=== PATIENT | female | born 1935 | race Caucasian/White ===

== ENCOUNTER 2016-12-30 02:42 | Emergency (ER) | payer OTHER ==
[2016-12-30] MEDS ORDERED: NS 0.9% 1000 ML* 1,000 ML IV SCH (02:45)
[2016-12-30 04:25] LABS: Hematocrit 42 % (35-47); Mean Corpuscular HGB Conc 33 g/dl (31-36); Mean Corpuscular Hemoglobin 29 pg (27-31); Mean Corpuscular Volume 87 fL (80-97); Mean Platelet Volume 10 um3 (7.4-10.4); Red Blood Count 4.87 10^6/ul (4.0-5.4); Red Cell Distribution Width 14 % (10.5-15); White Blood Count 12.1 10^3/ul (3.5-10.8)
[2016-12-30 05:11] LABS: TSH (Thyroid Stimulating Horm) 1.29 mcIU/mL (0.34-5.60)
[2016-12-30 05:12] LABS: Acetaminophen < 15 mcg/mL; Alcohol < 10 mg/dL (<10); Salicylate < 2.50 mg/dL (<30)
[2016-12-30 05:25] LABS: Anion Gap 8 mmol/L (2-11); CO2 Carbon Dioxide 26 mmol/L (22-32); Chloride 101 mmol/L (101-111); Glucose 110 mg/dL (70-100); Potassium 3.4 mmol/L (3.5-5.0); Sodium 135 mmol/L (133-145)
[2016-12-30 05:26] LABS: Blood Urea Nitrogen 12 mg/dL (6-24); EGFR African American 3.9 (>60); Magnesium 1.8 mg/dL (1.9-2.7); Total Protein 7.1 g/dL (6.4-8.9)
[2016-12-30 05:27] LABS: ALT 11 U/L (7-52); AST 17 U/L (13-39); Albumin 4.1 g/dL (3.2-5.2); Alkaline Phosphatase 65 U/L (34-104); Creatine Kinase 98 U/L (10-223); Lipase 20 U/L (11.0-82.0); Troponin I 0.01 ng/mL (<0.04)
[2016-12-30 05:53] LABS: Ammonia 47 mol/L (16-53); B Type Natriuretic Peptide 59 pg/mL
[2016-12-30 07:37] LABS: BUN/Creatinine Ratio 14.3 (8-20); Calcium 9.3 mg/dL (8.6-10.3); EGFR Non-African American 72.3 (>60)
[2016-12-30 07:39] LABS: Benzodiazepine Urine Screen None Detected (None Detect)
[2016-12-30] MEDS ORDERED: Potassium Chlor TAB* 20 MEQ TAB.ER PO ONE (07:50)
--- NOTE | 2016-12-30 07:51 | RAD ---
HISTORY: Amnesia COMPARISONS: July 20, 2012 TECHNIQUE: Multiple contiguous axial CT scans were obtained of the head without intravenous contrast. FINDINGS: HEMORRHAGE/INFARCT: There is no hemorrhage or acute infarct. MASSES/SHIFT: There is no mass or shift. EXTRA-AXIAL SPACES: There are no extra-axial fluid collections. SULCI AND VENTRICLES: The sulci and ventricles are normal in size and position for the patient's stated age. CEREBRUM: There is hypoattenuation of the periventricular and subcortical white matter. BRAINSTEM: There are no focal parenchymal abnormalities. CEREBELLUM: There are no focal parenchymal abnormalities. VESSELS: The vessels are grossly normal. PARANASAL SINUSES: There is mucosal thickening of ethmoid air cells ORBITS: The orbits are unremarkable. BONES AND SOFT TISSUE: No bone or soft tissue abnormalities are noted. OTHER: None IMPRESSION: NO ACUTE INTRACRANIAL PATHOLOGY.
--- NOTE | 2016-12-30 07:52 | RAD ---
HISTORY: Amnesia COMPARISONS: May 10, 2015 VIEWS: frontal view of the chest FINDINGS: CARDIOMEDIASTINAL SILHOUETTE: The cardiomediastinal silhouette is normal. RODRIGO: The rodrigo are normal. PLEURA: The costophrenic angles are sharp. No pleural abnormalities are noted. LUNG PARENCHYMA: There is linear opacification of left lung base. ABDOMEN: The upper abdomen is clear. There is no subphrenic gas. BONES AND SOFT TISSUES: There is a chronic appearing fracture of the right ninth rib. OTHER: None. IMPRESSION: LINEAR ATELECTASIS OF THE LEFT LUNG BASE
[2016-12-30 07:56] LABS: Urine Bacteria 1+ (Absent); Urine Bilirubin Negative (Negative); Urine Glucose Negative (Negative); Urine Nitrite Positive (Negative)
[2016-12-30] MEDS ORDERED: Ciprofloxacin TAB* 500 MG PO ONE (08:01)
[2016-12-30 08:14] VITALS: BP 132/73
--- NOTE | 2016-12-30 08:27 | ED ---
Alva Morales Alfonso, scribed for Ramon Mejia MD on 12/30/16 at 0810 . Progress - Progress Note Progress Note: Dr. Tejeda signs out for repeat Creatinine, Urinalysis, and BMP. The lab results were within normal limits. She is diagnosed with UTI, therefore will be prescribed ciprofloxacin. She reports no discomfort and is feeling better. Therefore, she will be discharged to follow up with PCP. Re-Evaluation - Re-Evaluation [id number] Re-Evaluation Time: 08:06 Change: Improved Comment: She is feeling better. Discussed discharge plan with pt and her family. Course/Dx - Diagnoses Provider Diagnoses: UTI (urinary tract infection), Hypokalemia, Abdominal pain The documentation as recorded by the Alva sarabia Alfonso accurately reflects the service I personally performed and the decisions made by me, Ramon Mejia MD.
--- NOTE | 2016-12-30 08:36 | RAD ---
INDICATION: Fall. Altered mental status. COMPARISON: No relevant prior exams available on the [facility] PACS for comparison. TECHNIQUE: Multidetector CT images foramen magnum to lung apices without contrast. Multiplanar reformation. REPORT: Mild degenerative anterolisthesis at C3-C4, C4-C5, C5-C6 as well as C7-T1 without facet subluxation at any level. Negative for fracture. Negative for paravertebral hematoma. 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 At C2-C3 uncinate process spurring and facet joint osteoarthritis results in mild LEFT foraminal stenosis. At C3-C4 uncinate process spurring and facet joint osteoarthritis results in mild bilateral foraminal stenosis. At C4-C5 uncinate process spurring and facet joint osteoarthritis results in mild LEFT foraminal stenosis. At C5-C6 dorsal spondylitic ridging disc complex results in mild acquired central canal stenosis and uncinate process spurring and facet joint osteoarthritis results in moderately severe LEFT foraminal stenosis. At C6-C7 uncinate process spurring and facet joint osteoarthritis results in mild bilateral foraminal stenosis. At C7-T1 uncinate process spurring and facet joint osteoarthritis results in mild bilateral foraminal stenosis. IMPRESSION: 1. No evidence for traumatic injury of the cervical spine. 2. 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
--- NOTE | 2016-12-30 08:40 | RAD ---
INDICATION: Fall. Altered mental status. COMPARISON: CT brain of the same date. TECHNIQUE: Multidetector CT base of the skull through mandible without contrast. Multiplanar reformation. REPORT: Motion artifact degrades image quality. Artifact from dental prosthesis. Negative for soft tissue plane hematoma. The orbital and maxillary sinus margins, zygomatic arches, lamina papyracea, base of the maxilla, pterygoid plates, and nasal bones are intact. The senile morphology mandible is intact. Normally aligned temporomandibular joints with advanced degenerative arthropathy. Unremarkable orbital contents. Negative for paranasal sinus fluid levels. Indolent thickening of the inner table of the frontal bone. IMPRESSION: No maxillofacial fracture evident.
--- NOTE | 2017-01-02 08:35 | PN ---
Progress Note - Progress Note Note: Urine culture grew e. coli Patient placed on Cipro. Cipro sensitive to e. coli. nothing further at this time. Sanam Balderrama PA-C
--- NOTE | 2017-01-03 10:58 | ED ---
Garrett Morales Salem, scribed for Jose Tejeda MD on 12/30/16 at 0312 . Altered Mental Status - HPI Summary HPI Summary: Patient is a 81 y/o F who presents to the ED with AMS. Per EMS, pt was taking a walk around 1700 yesterday. She does not recall what happened next, but she was found at [address] the side of [address] road. Per EMS, pt was incontinent to BM ( which is typical for her, per pt). She denies making the decision to rest on the side of the road, but states that she walks a lot typically. Pt denies any pain, but reports abrasion to right knuckles. Per EMS, VSS and blood glucose nml [employer]. Daughter reports that pt had a UTI a couple of months ago. - History Of Current Complaint Stated Complaint: ALTERED MENTAL STATUS Time Seen by Provider: 12/30/16 02:45 Hx Obtained From: Patient, Family/Regulatory Technician, EMS Hx From Patient Unobtainable Due To: Altered Mental Status Last Known Well Date: 12/29/16 Onset/Duration: Still Present Timing: Constant Severity Initially: Moderate Severity Currently: Moderate Character: Confusion Aggravating Factor(s): Nothing Alleviating Factor(s): Nothing Associated Signs And Symptoms: Positive: Negative - Allergies/Home Medications Allergies/Adverse Reactions: Allergies Allergy/AdvReac Type Severity Reaction Status Date / Time No Known Allergies Allergy Verified 12/30/16 03:06 PMH/Surg Hx/FS Hx/Imm Hx Previously Healthy: Yes Infectious Disease History: No Infectious Disease History: Denies: Traveled Outside the [place] in Last 30 Days - Family History Known Family History: Negative: Cardiac Disease, Hypertension Family History: Pt is uncertain due to AMS. - Social History Alcohol Use: None Hx Substance Use: No Substance Use Type: Reports: None Hx Tobacco Use: No Smoking Status (MU): Never Smoked Tobacco Review of Systems Positive: Other - No pain. . Negative: Fever Positive: incontinence - to BM. Neurological: Other - AMS. All Other Systems Reviewed And Are Negative: Yes Physical Exam Triage Information Reviewed: Yes Vital Signs On Initial Exam: Initial Vitals Temp Pulse Resp BP Pulse Ox 97.5 F 98 20 142/80 96 12/30/16 02:45 12/30/16 02:45 12/30/16 02:45 12/30/16 02:45 12/30/16 02:45 Vital Signs Reviewed: Yes Appearance: Positive: Well-Appearing, No Pain Distress Skin: Positive: Warm, Skin Color Reflects Adequate Perfusion, Dry, Other - Abrasions to right knuckles. No actively bleeding. Head/Face: Positive: Normal Head/Face Inspection Eyes: Positive: EOMI, MOR Neck: Positive: Supple, Nontender Respiratory/Lung Sounds: Positive: Clear to Auscultation, Breath Sounds Present Cardiovascular: Positive: RRR Abdomen Description: Positive: Nontender, Soft Bowel Sounds: Positive: Present Musculoskeletal: Positive: Normal, Strength/ROM Intact Neurological: Positive: Normal, Sensory/Motor Intact, Alert, Oriented to Person Place, Time Diagnostics - Vital Signs Vital Signs Temp Pulse Resp BP Pulse Ox 12/30/16 02:54 97.6 F 86 20 133/73 96 12/30/16 02:45 97.5 F 98 20 142/80 96 - Laboratory Lab Results: Lab Results 12/30/16 12/30/16 12/30/16 Range/Units 04:05 04:05 04:05 WBC 12.1 H (3.5-10.8) 10^3/ul RBC 4.87 (4.0-5.4) 10^6/ul Hgb 14.0 (12.0-16.0) g/dl Hct 42 (35-47) % MCV 87 (80-97) fL MCH 29 (27-31) pg MCHC 33 (31-36) g/dl RDW 14 (10.5-15) % Plt Count 217 (150-450) 10^3/ul MPV 10 (7.4-10.4) um3 Neut % (Auto) 84.8 H (38-83) % Lymph % (Auto) 9.2 L (25-47) % [place] % (Auto) 5.1 (1-9) % Eos % (Auto) 0.3 (0-6) % Baso % (Auto) 0.6 (0-2) % Absolute Neuts (auto) 10.3 H (1.5-7.7) 10^3/ul Absolute Lymphs (auto) 1.1 (1.0-4.8) 10^3/ul Absolute Monos (auto) 0.6 (0-0.8) 10^3/ul Absolute Eos (auto) 0 (0-0.6) 10^3/ul Absolute Basos (auto) 0.1 (0-0.2) 10^3/ul Absolute Nucleated RBC 0 10^3/ul Nucleated RBC % 0 INR (Anticoag Therapy) 0.98 (0.89-1.11) APTT 32.0 (26.0-36.3) seconds Sodium 135 (133-145) mmol/L Potassium 3.4 L (3.5-5.0) mmol/L Chloride 101 (101-111) mmol/L Carbon Dioxide 26 (22-32) mmol/L Anion Gap 8 (2-11) mmol/L BUN 12 (6-24) mg/dL Creatinine 12.00 H (0.51-0.95) mg/dL Est GFR ( Amer) 3.9 (>60) Est GFR (Non-Af Amer) 3.0 (>60) BUN/Creatinine Ratio 1.0 L (8-20) Glucose 110 H (70-100) mg/dL Lactic Acid (0.5-2.0) mmol/L Calcium 9.0 (8.6-10.3) mg/dL Magnesium 1.8 L (1.9-2.7) mg/dL Total Bilirubin 1.70 H (0.2-1.0) mg/dL AST 17 (13-39) U/L ALT 11 (7-52) U/L Alkaline Phosphatase 65 (34-104) U/L Ammonia (16-53) mol/L Total Creatine Kinase 98 (10-223) U/L CK-MB (CK-2) 2.1 (0.6-6.3) ng/mL Troponin I 0.01 (<0.04) ng/mL C-Reactive Protein 8.40 H (< 5.00) mg/L B-Natriuretic Peptide ( - 100) pg/mL Total Protein 7.1 (6.4-8.9) g/dL Albumin 4.1 (3.2-5.2) g/dL Globulin 3.0 (2-4) g/dL Albumin/Globulin Ratio 1.4 (1-3) Lipase 20 (11.0-82.0) U/L TSH 1.29 (0.34-5.60) mcIU/mL Urine Color Urine Appearance Urine pH (5-9) Ur Specific [place] (1.010-1.030) Urine Protein (Negative) Urine Ketones (Negative) Urine Blood (Negative) Urine Nitrate (Negative) Urine Bilirubin (Negative) Urine Urobilinogen (Negative) Ur Leukocyte Esterase (Negative) Urine WBC (Auto) (Absent) Urine RBC (Auto) (Absent) Ur Squamous Epith Cells (Absent) Urine Bacteria (Absent) Urine Glucose (Negative) Salicylates < 2.50 (<30) mg/dL Urine Opiates Screen (None Detect) Acetaminophen < 15 mcg/mL Ur Barbiturates Screen (None Detect) Ur Phencyclidine Scrn (None Detect) Ur Amphetamines Screen (None Detect) U Benzodiazepines Scrn (None Detect) Urine Cocaine Screen (None Detect) U Cannabinoids Screen (None Detect) Serum Alcohol < 10 (<10) mg/dL 12/30/16 12/30/16 12/30/16 Range/Units 04:05 04:05 06:40 WBC (3.5-10.8) 10^3/ul RBC (4.0-5.4) 10^6/ul Hgb (12.0-16.0) g/dl Hct (35-47) % MCV (80-97) fL MCH (27-31) pg MCHC (31-36) g/dl RDW (10.5-15) % Plt Count (150-450) 10^3/ul MPV (7.4-10.4) um3 Neut % (Auto) (38-83) % Lymph % (Auto) (25-47) % [place] % (Auto) (1-9) % Eos % (Auto) (0-6) % Baso % (Auto) (0-2) % Absolute Neuts (auto) (1.5-7.7) 10^3/ul Absolute Lymphs (auto) (1.0-4.8) 10^3/ul Absolute Monos (auto) (0-0.8) 10^3/ul Absolute Eos (auto) (0-0.6) 10^3/ul Absolute Basos (auto) (0-0.2) 10^3/ul Absolute Nucleated RBC 10^3/ul Nucleated RBC % INR (Anticoag Therapy) (0.89-1.11) APTT (26.0-36.3) seconds Sodium (133-145) mmol/L Potassium (3.5-5.0) mmol/L Chloride (101-111) mmol/L Carbon Dioxide (22-32) mmol/L Anion Gap (2-11) mmol/L BUN (6-24) mg/dL Creatinine (0.51-0.95) mg/dL Est GFR ( Amer) (>60) Est GFR (Non-Af Amer) (>60) BUN/Creatinine Ratio (8-20) Glucose (70-100) mg/dL Lactic Acid 1.1 (0.5-2.0) mmol/L Calcium (8.6-10.3) mg/dL Magnesium (1.9-2.7) mg/dL Total Bilirubin (0.2-1.0) mg/dL AST (13-39) U/L ALT (7-52) U/L Alkaline Phosphatase (34-104) U/L Ammonia 47 (16-53) mol/L Total Creatine Kinase (10-223) U/L CK-MB (CK-2) (0.6-6.3) ng/mL Troponin I (<0.04) ng/mL C-Reactive Protein (< 5.00) mg/L B-Natriuretic Peptide 59 ( - 100) pg/mL Total Protein (6.4-8.9) g/dL Albumin (3.2-5.2) g/dL Globulin (2-4) g/dL Albumin/Globulin Ratio (1-3) Lipase (11.0-82.0) U/L TSH (0.34-5.60) mcIU/mL Urine Color Yellow Urine Appearance Cloudy Urine pH 6.0 (5-9) Ur Specific [place] 1.004 L (1.010-1.030) Urine Protein Negative (Negative) Urine Ketones Negative (Negative) Urine Blood 2+ H (Negative) Urine Nitrate Positive H (Negative) Urine Bilirubin Negative (Negative) Urine Urobilinogen Negative (Negative) Ur Leukocyte Esterase 3+ H (Negative) Urine WBC (Auto) 3+(>20/hpf) H (Absent) Urine RBC (Auto) 1+(3-5/hpf) H (Absent) Ur Squamous Epith Cells Present H (Absent) Urine Bacteria 1+ H (Absent) Urine Glucose Negative (Negative) Salicylates (<30) mg/dL Urine Opiates Screen (None Detect) Acetaminophen mcg/mL Ur Barbiturates Screen (None Detect) Ur Phencyclidine Scrn (None Detect) Ur Amphetamines Screen (None Detect) U Benzodiazepines Scrn (None Detect) Urine Cocaine Screen (None Detect) U Cannabinoids Screen (None Detect) Serum Alcohol (<10) mg/dL 12/30/16 12/30/16 Range/Units 06:40 06:50 WBC (3.5-10.8) 10^3/ul RBC (4.0-5.4) 10^6/ul Hgb (12.0-16.0) g/dl Hct (35-47) % MCV (80-97) fL MCH (27-31) pg MCHC (31-36) g/dl RDW (10.5-15) % Plt Count (150-450) 10^3/ul MPV (7.4-10.4) um3 Neut % (Auto) (38-83) % Lymph % (Auto) (25-47) % [place] % (Auto) (1-9) % Eos % (Auto) (0-6) % Baso % (Auto) (0-2) % Absolute Neuts (auto) (1.5-7.7) 10^3/ul Absolute Lymphs (auto) (1.0-4.8) 10^3/ul Absolute Monos (auto) (0-0.8) 10^3/ul Absolute Eos (auto) (0-0.6) 10^3/ul Absolute Basos (auto) (0-0.2) 10^3/ul Absolute Nucleated RBC 10^3/ul Nucleated RBC % INR (Anticoag Therapy) (0.89-1.11) APTT (26.0-36.3) seconds Sodium 136 (133-145) mmol/L Potassium 3.0 L (3.5-5.0) mmol/L Chloride 102 (101-111) mmol/L Carbon Dioxide 27 (22-32) mmol/L Anion Gap 7 (2-11) mmol/L BUN 11 (6-24) mg/dL Creatinine 0.77 (0.51-0.95) mg/dL Est GFR ( Amer) 93.0 (>60) Est GFR (Non-Af Amer) 72.3 (>60) BUN/Creatinine Ratio 14.3 (8-20) Glucose 100 (70-100) mg/dL Lactic Acid (0.5-2.0) mmol/L Calcium 9.3 (8.6-10.3) mg/dL Magnesium (1.9-2.7) mg/dL Total Bilirubin (0.2-1.0) mg/dL AST (13-39) U/L ALT (7-52) U/L Alkaline Phosphatase (34-104) U/L Ammonia (16-53) mol/L Total Creatine Kinase (10-223) U/L CK-MB (CK-2) (0.6-6.3) ng/mL Troponin I (<0.04) ng/mL C-Reactive Protein (< 5.00) mg/L B-Natriuretic Peptide ( - 100) pg/mL Total Protein (6.4-8.9) g/dL Albumin (3.2-5.2) g/dL Globulin (2-4) g/dL Albumin/Globulin Ratio (1-3) Lipase (11.0-82.0) U/L TSH (0.34-5.60) mcIU/mL Urine Color Urine Appearance Urine pH (5-9) Ur Specific [place] (1.010-1.030) Urine Protein (Negative) Urine Ketones (Negative) Urine Blood (Negative) Urine Nitrate (Negative) Urine Bilirubin (Negative) Urine Urobilinogen (Negative) Ur Leukocyte Esterase (Negative) Urine WBC (Auto) (Absent) Urine RBC (Auto) (Absent) Ur Squamous Epith Cells (Absent) Urine Bacteria (Absent) Urine Glucose (Negative) Salicylates (<30) mg/dL Urine Opiates Screen None detected (None Detect) Acetaminophen mcg/mL Ur Barbiturates Screen None detected (None Detect) Ur Phencyclidine Scrn None detected (None Detect) Ur Amphetamines Screen None detected (None Detect) U Benzodiazepines Scrn None detected (None Detect) Urine Cocaine Screen None detected (None Detect) U Cannabinoids Screen None detected (None Detect) Serum Alcohol (<10) mg/dL Result Diagrams: 12/30/16 04:05 12/30/16 06:50 Lab Statement: Any lab studies that have been ordered have been reviewed, and results considered in the medical decision making process. - Radiology CXR Radiology Interpretation Completed By: ED Physician - Normal. - CT BRAIN CT Interpretation Completed By: Radiologist - IMPRESSION: No acute intracranial process. CERVICAL SPINE CT Interpretation Completed By: Radiologist - IMPRESSION: No acute cervical spine injury. MAXILLOFACIAL CT Interpretation Completed By: Radiologist - Findings: No acute facial fractures or orbital injury. Degenerative changes of the tempormanubrial joint. Mild chronic bilateral ethmoid and maxillary sinus disease. Hyperostosis frontalis Re-Evaluation - Re-Evaluation First Eval Re-Evaluation Time: 05:11 Comment: Informed pt and family of imaging results. Second Eval Re-Evaluation Time: 06:29 Comment: Updated family and pt. Discussed new imaging results. Altered Mental Statu Course/Dx - Course Course Of Treatment: DISPOSITION PENDING AT SHIFT CHANGE, STABLE. NO CRITICAL CARE TIME. - Diagnoses Discharge Diagnoses: UTI (urinary tract infection), Hypokalemia, Abdominal pain Discharge - Discharge Plan Condition: Stable Disposition: HOME Prescriptions: Ciprofloxacin TAB* [Cipro 500 MG TAB*] 500 mg PO BID #6 tab Patient Education Materials: Ciprofloxacin (By mouth), Urinary Tract Infection in Women (ED), Hypokalemia (ED) Referrals: Alethea Burgos MD [Primary Care Provider] - 2 Days The documentation as recorded by the Garrett sarabia Salem accurately reflects the service I personally performed and the decisions made by me, Jose Tejeda MD.
== END 2016-12-30 08:53 | disposition home or self-care (01) ==
LOC: ED 02:42
DX: N39.0 Urinary tract infection, site not specified (principal); R10.9 Unspecified abdominal pain; E87.6 Hypokalemia
CPT/HCPCS: 36415; 70450; 70486; 71010; 72125; 80048; 80053; 80307; 80320; 80329; 81003; 81015; 82140; 82550; 82553; 83605; 83690; 83735; 83880; 84443; 84484; 85025; 85610; 85730; 86140; 87077; 87086; 87186; 99283; A9270-GY; G0480

== ENCOUNTER 2017-09-06 09:41 | Inpatient (IN) | payer MEDICARE ==
[2017-09-06] MEDS ORDERED: NS 0.9% 1000 ML* 1,000 ML IV ONE (09:49)
[2017-09-06 10:30] LABS: ABS Basophils 0 10^3/ul (0-0.2); ABS Eosinophils 0.1 10^3/ul (0-0.6); ABS Lymphocytes 1.7 10^3/ul (1.0-4.8); ABS Monocytes 0.5 10^3/ul (0-0.8); ABS Neutrophils 6.8 10^3/ul (1.5-7.7); ABS Nucleated RBC 0 10^3/ul; Eosinophil % 1.2 % (0-6); Hematocrit 40 % (35-47); Hemoglobin 13.3 g/dl (12.0-16.0); Lymphocyte % 18.8 % (25-47); Mean Corpuscular HGB Conc 33 g/dl (31-36); Mean Corpuscular Hemoglobin 29 pg (27-31); Mean Corpuscular Volume 88 fL (80-97); Mean Platelet Volume 9 um3 (7.4-10.4); Nucleated Red Blood Cells % 0; Platelet Count 322 10^3/ul (150-450); Red Blood Count 4.57 10^6/ul (4.0-5.4); Red Cell Distribution Width 14 % (10.5-15); White Blood Count 9.2 10^3/ul (3.5-10.8)
[2017-09-06 10:44] LABS: INR 1.04 (0.77-1.02)
--- NOTE | 2017-09-06 10:56 | RAD ---
INDICATION: Altered mental status. COMPARISON: Comparison is made with a prior CT of the brain from December 30, 2016. TECHNIQUE: Contiguous axial sections of the brain were obtained from the skull base to the vertex without contrast. FINDINGS: The ventricles, cisterns and sulci are enlarged consistent with diffuse atrophy. There are multiple focal areas of decreased density in the subcortical and periventricular white matter suggestive of moderate chronic small vessel ischemic changes. No other focal abnormality or mass effect is seen. There is no evidence for hemorrhage. No significant focal osseous abnormality is seen. The visualized portion of the paranasal sinuses and mastoid air cells appear clear. IMPRESSION: NO EVIDENCE FOR ACUTE INTRACRANIAL ABNORMALITY.
--- NOTE | 2017-09-06 11:02 | RAD ---
Indication: Altered mental status. Hypertensive, diaphoretic. Seizure. Comparison: December 30, 2016 Technique: Upright AP 1030 hours Report: Elevated lung volumes. Negative for alveolar consolidation, focal pulmonary lesion, pleural effusion, pneumothorax. The heart, pulmonary vasculature, and mediastinal contours are unremarkable. Healed fracture of the RIGHT ninth rib posterolaterally. No acute fracture evident. IMPRESSION: 1. Stigmata of probable chronic obstructive pulmonary disease. 2. No evidence for acute intrathoracic disease evident.
[2017-09-06] MEDS ORDERED: Aspirin Low Dose CHEW TAB* 81 MG PO ONE (13:34)
[2017-09-06] MEDS ORDERED: Heparin for STEMI(*) 5,000 UNITS/ML 1 ML VIAL IV ONE (13:34)
[2017-09-06] MEDS ORDERED: Atorvastatin* 80 MG TAB PO ONE (14:36)
[2017-09-06] MEDS ORDERED: Acetaminophen TAB* 325 MG PO PRN (14:39)
[2017-09-06] MEDS ORDERED: Loperamide CAP* 2 MG PO PRN (14:40)
[2017-09-06] MEDS ORDERED: Heparin DRIP 25,000 UNITS(*) 25,000 UNITS/500 ML BAG IVPB SCH (14:45)
[2017-09-06] MEDS ORDERED: NS 0.9% 1000 ML* 1,000 ML IV SCH (14:45)
[2017-09-06] MEDS ORDERED: Heparin VIAL(*) 5000 UNITS/ML VIAL (FIVE THOUSAND) IV SCH (15:00)
[2017-09-06 15:07] LABS: Urine Appearance Cloudy; Urine Blood 2+ (Negative); Urine Color Yellow; Urine Ketones Negative (Negative); Urine Protein Negative (Negative); Urine Specific Gravity 1.006 (1.010-1.030); Urine Urobilinogen Negative (Negative)
[2017-09-06] MEDS ORDERED: QUEtiapine TAB* 25 MG PO SCH (18:00)
[2017-09-06] MEDS ORDERED: LORazepam TAB(*) 0.5 MG PO SCH (18:00)
--- NOTE | 2017-09-06 19:38 | HP ---
CC: Dr. Romero * HISTORY AND PHYSICAL: DATE OF ADMISSION: 09/06/17 PRIMARY CARE PROVIDER: Dr. Romero. HEALTHCARE PROXY: and Madhav Gonzales. CODE STATUS: DNR, confirmed with the patient's healthcare proxy, [facility] in chart. CHIEF COMPLAINT: Cold and clammy. HISTORY OF PRESENT ILLNESS: This 82-year-old female with past medical history of dementia, resident of [place], who had not been feeling well approximately 3 days prior to presentation. She is visited by her daughter daily, who noted on Tuesday she did not want to get up and get out of bed, had decreased p.o. intake. The following day Tuesday, 2 days prior to presentation, she was feeling much better. However, the day prior to presentation, she was again increasingly fatigued, difficult to arouse and then again ate very little. Today while at [facility], according to their notes, on transfer to [facility], she was not feeling right, felt fatigued, and felt cold and clammy to touch without fever and EMS was activated. However, in talking with the patient's family, they indicated that they thought she had seizure-like activity. This is not reflected in her transfer note nor in EMS' note. I attempted to reach , the nurse at [facility] at [phone] to no avail at this time. The patient has dementia, and while she is communicative, her short and long-term memory are impaired. She does not recall any chest pain; however, I do not lend much credence to her own self-evaluation. She has not been noted to have any cough or fever, shortness of breath or chest pain, diarrhea, urinary symptoms per her daughter. EMS noted that the patient's heart rate was 50 upon arrival. When seen in the emergency room, she was thought to be acting herself; however, the daughter thought she looked "pale." PAST MEDICAL HISTORY: Urinary tract infection, dementia, hysterectomy in 1974. MEDICATIONS: Include: 1. Acetaminophen 650 mg every 4 hours as needed for pain. 2. Seroquel 12.5 mg daily as needed in addition to Seroquel 12.5 mg in the morning and 25 mg of Seroquel at night. 3. Loperamide 2 to 4 mg daily as needed for diarrhea. 4. Lorazepam 0.5 mg in the evening. 5. Probiotic 1 cap daily. 6. Lexapro 10 mg daily. 7. Donepezil 10 mg at bedtime. 8. Cranberry fruit extract 850 mg daily. 9. Vitamin D 50,000 units monthly. 10. Multivitamin 1 tab daily. ALLERGIES: No known drug allergies. FAMILY HISTORY: Negative for CAD. SOCIAL HISTORY: Lives in [place]. No tobacco, alcohol, or illicits. She was exposed to significant second-hand smoke by her . REVIEW OF SYSTEMS: As per HPI, otherwise all other systems negative. PHYSICAL EXAMINATION GENERAL: Appears stated age, interactive, pleasant, no apparent distress. VITAL SIGNS: Vitals in the emergency room; blood pressure 129/78, heart rate ranging from 57 to 68, respiratory rate is 15, 95% on room air, T-max 97.8. HEENT: Oropharynx is clear. She has moist mucous membranes. Sclerae anicteric. NECK: She has JVD to approximately the angle of her jaw. No cervical or supraclavicular lymphadenopathy. LUNGS: Clear to auscultation. HEART: She has regular rate and rhythm. No murmurs, rubs, or gallops. ABDOMEN: Soft, nontender, nondistended. EXTREMITIES: Warm and well perfused. No clubbing, cyanosis, or edema. NEUROLOGIC: She is alert and oriented to herself and hospital. She did have difficulty giving her last name, wants to use her maiden name, had difficulty remembering her name. Cranial nerves II through XII are intact. 5/5 strength throughout. 2+ peripheral pulses. Could not remember the year, who the president was. She is able to follow simple 2-step commands. She has no apparent anxiety, agitation, or depression. DIAGNOSTIC STUDIES/LAB DATA: Labs reviewed notable for white blood cell count 9.2, hemoglobin 13.3, platelets 322,000. Troponin I is 2.38, increased from 0.00 on presentation. Data reviewed. EKG: Normal sinus rhythm, ventricular rate of 58, normal limit axis, normal limit intervals, biphasic T waves in V2 with T-wave inversions in V3, V4, V5. No prior to compare to. Chest x-ray, impression: Stigmata of probable chronic obstructive pulmonary disease. No evidence for acute intrathoracic disease. ASSESSMENT AND PLAN: This is an 82-year-old female, presenting to the hospital potentially with loss of consciousness, but definitely with several days of feeling fatigued, decreased appetite, and then an episode of feeling cold and clammy, found with elevated troponin with nonspecific EKG findings concerning for myocardial ischemia. 1. Elevated troponin. Continue to trend troponins and repeat EKGs. The patient received heparin bolus in the emergency room. We will continue the heparin drip at this time. She received the full-dose aspirin. We will continue aspirin low dose tomorrow. Check lipids. Metoprolol with hold parameters for both blood pressure and heart rate. High dose atorvastatin this evening. Discussed at length goals of care with family. At this point, they are undecided whether they would want to pursue cardiac catheterization and will be guided by both the significance of the troponin elevation, her symptomatology and transthoracic echocardiogram findings. I have ordered TTE at this time. Results are pending. 2. Syncope with seizure like activity. Transthoracic echocardiogram is indicated, but with continued telemetry monitoring. I will hydrate the patient with normal saline 75 cc per hour for 1 L additionally in the setting of recent fatigue and illness. Check for influenza. 3. Bradycardia on presentation. Unclear association with loss of consciousness and/or acute myocardial infarction. I have ordered metoprolol knowingly in the setting of acute coronary syndrome with hold parameters. Continue to monitor on telemetry. 4. DVT prophylaxis with heparin drip. 5. Dementia. Continue Aricept, Ativan and Seroquel per home dosing. 6. FEN. N.p.o. after midnight should she undergo stress testing. [id number]/[facility] #: [id number] ANGELA
[2017-09-06] MEDS: Metoprolol Tartrate TAB* 25 MG PO SCH (20:34)
[2017-09-06] MEDS ORDERED: Donepezil TAB* 5 MG PO SCH (21:00)
[2017-09-06] MEDS ORDERED: Haloperidol INJ IV/IM* 5 MG/ML AMP IM ONE ×2 (21:01→21:16)
[2017-09-06] MEDS ORDERED: Haloperidol INJ IV/IM* 5 MG/ML AMP ONE (21:16)
[2017-09-07 06:14] LABS: ABS Basophils 0.1 10^3/ul (0-0.2); ABS Eosinophils 0.2 10^3/ul (0-0.6); ABS Lymphocytes 2.5 10^3/ul (1.0-4.8); ABS Monocytes 0.5 10^3/ul (0-0.8); ABS Neutrophils 4.1 10^3/ul (1.5-7.7); ABS Nucleated RBC 0 10^3/ul; Eosinophil % 2.2 % (0-6); Hematocrit 37 % (35-47); Hemoglobin 12.5 g/dl (12.0-16.0); Lymphocyte % 34.3 % (25-47); Mean Corpuscular HGB Conc 34 g/dl (31-36); Mean Corpuscular Hemoglobin 30 pg (27-31); Mean Corpuscular Volume 87 fL (80-97); Mean Platelet Volume 10 um3 (7.4-10.4); Nucleated Red Blood Cells % 0.1; Platelet Count 307 10^3/ul (150-450); Red Blood Count 4.22 10^6/ul (4.0-5.4); Red Cell Distribution Width 14 % (10.5-15); White Blood Count 7.3 10^3/ul (3.5-10.8)
[2017-09-07 06:45] LABS: EGFR Non-African American 86.2 (>60)
[2017-09-07] MEDS: Metoprolol Tartrate TAB* 25 MG PO SCH (08:47)
[2017-09-07] MEDS ORDERED: Multivitamins/Minerals TAB PO SCH (09:00)
[2017-09-07] MEDS ORDERED: QUEtiapine TAB* 25 MG PO SCH (09:00)
[2017-09-07] MEDS ORDERED: Aspirin EC Low Dose* 81 MG TAB.EC PO SCH (09:00)
[2017-09-07] MEDS ORDERED: Citalopram TAB* 20 MG PO SCH (09:00)
[2017-09-07 14:44] VITALS: BP 123/68
--- NOTE | 2017-09-07 18:19 | ED ---
[facility] Angela, scribed for Ramon Mejia MD on 09/06/17 at 0950 . Neurological HPI - HPI Summary HPI Summary: This pt is a 82 y/o female presenting to [facility] via EMS from [facility] for a seizure like activity. EMS reports the pt was in the library when pt had a tremor like activity. EMS was called for hypotension and pt looking pale. EMS states that for the past 30 minutes pt has had retching and altered mental status. Pt is unable to remember this seizure like episode. Pt denies any pain, headache, dizziness, SOB, chest pain, fever. Per EMS pt is usually very lucid and is talkative. - History of Current Complaint Chief Complaint: EDSeizure Stated Complaint: HYPOTENSION Hx Obtained From: Patient, EMS Onset/Duration: Started hours ago, Resolved Timing: Sudden Onset Onset Severity: Moderate Current Severity: None Number of Seizures: 1 Pain Intensity: 0 Pain Scale Used: 0-10 Numeric Character: Confusion Syncope Context: Witnessed Aggravating: Nothing Alleviating: Nothing Associated Signs and Symptoms: Positive: Confusion - Allergy/Home Medications Allergies/Adverse Reactions: Allergies Allergy/AdvReac Type Severity Reaction Status Date / Time No Known Allergies Allergy Verified 12/30/16 03:06 Home Medications: Home Medications Acetaminophen TAB* [Tylenol TAB*] 650 mg PO Q4H PRN 09/06/17 [History Confirmed 09/06/17] Cholecalciferol TAB* [Vitamin D TAB*] 50,000 unit PO MONTHLY 09/06/17 [History Confirmed 09/06/17] Cranberry Fruit Extract [Cranberry] 850 mg PO DAILY 09/06/17 [History Confirmed 09/06/17] Donepezil TAB* [Aricept 5 MG TAB*] 10 mg PO BEDTIME 09/06/17 [History Confirmed 09/06/17] Escitalopram (NF) [Lexapro 10 mg (NF)] 10 mg PO DAILY 09/06/17 [History Confirmed 09/06/17] L.acidoph,Paracasei, B.lactis [Probiotic] 1 cap PO DAILY 09/06/17 [History Confirmed 09/06/17] LORazepam TAB(*) [Ativan 0.5 MG TAB (*)] 0.5 mg PO QPM 09/06/17 [History Confirmed 09/06/17] Loperamide CAP* [Imodium CAP*] 2 - 4 mg PO DAILY PRN 09/06/17 [History Confirmed 09/06/17] Multivitamins/Minerals TAB* [Theragran/minerals TAB*] 1 tab PO DAILY 09/06/17 [ History Confirmed 09/06/17] QUEtiapine TAB* [Seroquel TAB*] 12.5 mg PO DAILY PRN MDD 50mg total dose [History Confirmed 09/06/17] QUEtiapine TAB* [Seroquel TAB*] 12.5 mg PO QAM 09/06/17 [History Confirmed 09/06] QUEtiapine TAB* [Seroquel TAB*] 25 mg PO QPM 09/06/17 [History Confirmed ] PMH/Surg Hx/FS Hx/Imm Hx - Family History Known Family History: Negative: Cardiac Disease, Hypertension Family History: Pt is uncertain due to AMS. - Social History Alcohol Use: None Hx Substance Use: No Substance Use Type: Reports: None Hx Tobacco Use: No Smoking Status (MU): Never Smoked Tobacco Review of Systems Negative: Fever, Chills Negative: Chest Pain Negative: Shortness Of Breath Neurological: Other - POS: seizure like episode. NEG: dizziness Positive: Weakness. Negative: Headache All Other Systems Reviewed And Are Negative: Yes Physical Exam - Summary Physical Exam Summary: VITAL SIGNS: Reviewed. GENERAL: Patient is a pale and diaphoretic female who is weak. Patient is not in any acute respiratory distress. HEAD AND FACE: No signs of trauma. No ecchymosis, hematomas or skull depressions. No sinus tenderness. EYES: PERRLA, EOMI x 2, No injected conjunctiva, no nystagmus. EARS: Hearing grossly intact. Ear canals and tympanic membranes are within normal limits. MOUTH: Oropharynx within normal limits. NECK: Supple, trachea is midline, no adenopathy, no JVD, no carotid bruit, no c- spine tenderness, neck with full ROM. CHEST: Symmetric, no tenderness at palpation LUNGS: Clear to auscultation bilaterally. No wheezing or crackles. CVS: Bradycardic with regular rhythm, S1 and S2 present, no murmurs or gallops appreciated. ABDOMEN: Soft, non-tender. No signs of distention. No rebound no guarding, and no masses palpated. Bowel sounds are normal. EXTREMITIES: FROM in all major joints, no edema, no cyanosis or clubbing. NEURO: Alert and oriented x 3. No acute neurological deficits. Speech is normal and follows commands. SKIN: Pale and diaphoretic. GCS: 15 Triage Information Reviewed: Yes Vital Signs On Initial Exam: Initial Vitals Temp Pulse Resp BP Pulse Ox 96.5 F 57 18 121/59 96 09/06/17 09:43 09/06/17 09:43 09/06/17 09:43 09/06/17 09:43 09/06/17 09:43 Vital Signs Reviewed: Yes - [place] Coma Scale Best Eye Response: 4 - Spontaneous Best Motor Response: 6 - Obeys Commands Best Verbal Response: 5 - Oriented Coma Scale Total: 15 Diagnostics - Vital Signs Vital Signs Temp Pulse Resp BP Pulse Ox 09/06/17 14:30 67 16 144/78 97 09/06/17 14:00 16 09/06/17 13:47 68 21 129/78 95 09/06/17 13:00 59 15 95 09/06/17 12:10 58 97 09/06/17 11:22 98 09/06/17 11:00 52 19 97 09/06/17 10:28 97.8 F 59 17 121/61 96 09/06/17 10:00 61 15 121/61 95 09/06/17 09:48 59 95 09/06/17 09:47 121/59 09/06/17 09:43 96.5 F 57 18 121/59 96 - Laboratory Lab Results: Lab Results 09/06/17 09/06/17 09/06/17 Range/Units 10:16 10:16 10:16 WBC 9.2 (3.5-10.8) 10^3/ul RBC 4.57 (4.0-5.4) 10^6/ul Hgb 13.3 (12.0-16.0) g/dl Hct 40 (35-47) % MCV 88 (80-97) fL MCH 29 (27-31) pg MCHC 33 (31-36) g/dl RDW 14 (10.5-15) % Plt Count 322 (150-450) 10^3/ul MPV 9 (7.4-10.4) um3 Neut % (Auto) 73.8 (38-83) % Lymph % (Auto) 18.8 L (25-47) % [place] % (Auto) 5.7 (1-9) % Eos % (Auto) 1.2 (0-6) % Baso % (Auto) 0.5 (0-2) % Absolute Neuts (auto) 6.8 (1.5-7.7) 10^3/ul Absolute Lymphs (auto) 1.7 (1.0-4.8) 10^3/ul Absolute Monos (auto) 0.5 (0-0.8) 10^3/ul Absolute Eos (auto) 0.1 (0-0.6) 10^3/ul Absolute Basos (auto) 0 (0-0.2) 10^3/ul Absolute Nucleated RBC 0 10^3/ul Nucleated RBC % 0 INR (Anticoag Therapy) 1.04 H (0.77-1.02) APTT 26.5 (26.0-36.3) seconds Sodium 134 (133-145) mmol/L Potassium 4.0 (3.5-5.0) mmol/L Chloride 100 L (101-111) mmol/L Carbon Dioxide 28 (22-32) mmol/L Anion Gap 6 (2-11) mmol/L BUN 11 (6-24) mg/dL Creatinine 0.79 (0.51-0.95) mg/dL Est GFR ( Amer) 90.1 (>60) Est GFR (Non-Af Amer) 70.0 (>60) BUN/Creatinine Ratio 13.9 (8-20) Glucose 146 H (70-100) mg/dL Lactic Acid (0.5-2.0) mmol/L Calcium 9.3 (8.6-10.3) mg/dL Magnesium 2.0 (1.9-2.7) mg/dL Total Bilirubin 0.80 (0.2-1.0) mg/dL AST 14 (13-39) U/L ALT 8 (7-52) U/L Alkaline Phosphatase 60 (34-104) U/L Troponin I 0.00 (<0.04) ng/mL Total Protein 6.7 (6.4-8.9) g/dL Albumin 3.3 (3.2-5.2) g/dL Globulin 3.4 (2-4) g/dL Albumin/Globulin Ratio 1.0 (1-3) 09/06/17 09/06/17 Range/Units 10:16 12:55 WBC (3.5-10.8) 10^3/ul RBC (4.0-5.4) 10^6/ul Hgb (12.0-16.0) g/dl Hct (35-47) % MCV (80-97) fL MCH (27-31) pg MCHC (31-36) g/dl RDW (10.5-15) % Plt Count (150-450) 10^3/ul MPV (7.4-10.4) um3 Neut % (Auto) (38-83) % Lymph % (Auto) (25-47) % [place] % (Auto) (1-9) % Eos % (Auto) (0-6) % Baso % (Auto) (0-2) % Absolute Neuts (auto) (1.5-7.7) 10^3/ul Absolute Lymphs (auto) (1.0-4.8) 10^3/ul Absolute Monos (auto) (0-0.8) 10^3/ul Absolute Eos (auto) (0-0.6) 10^3/ul Absolute Basos (auto) (0-0.2) 10^3/ul Absolute Nucleated RBC 10^3/ul Nucleated RBC % INR (Anticoag Therapy) (0.77-1.02) APTT (26.0-36.3) seconds Sodium (133-145) mmol/L Potassium (3.5-5.0) mmol/L Chloride (101-111) mmol/L Carbon Dioxide (22-32) mmol/L Anion Gap (2-11) mmol/L BUN (6-24) mg/dL Creatinine (0.51-0.95) mg/dL Est GFR ( Amer) (>60) Est GFR (Non-Af Amer) (>60) BUN/Creatinine Ratio (8-20) Glucose (70-100) mg/dL Lactic Acid 2.0 (0.5-2.0) mmol/L Calcium (8.6-10.3) mg/dL Magnesium (1.9-2.7) mg/dL Total Bilirubin (0.2-1.0) mg/dL AST (13-39) U/L ALT (7-52) U/L Alkaline Phosphatase (34-104) U/L Troponin I 2.38 H* (<0.04) ng/mL Total Protein (6.4-8.9) g/dL Albumin (3.2-5.2) g/dL Globulin (2-4) g/dL Albumin/Globulin Ratio (1-3) Result Diagrams: 09/07/17 05:22 09/07/17 05:22 Lab Statement: Any lab studies that have been ordered have been reviewed, and results considered in the medical decision making process. - Radiology Chest XR Xray Interpretation: Positive (See Comments) - IMPRESSION: 1. Stigmata of probable chronic obstructive pulmonary disease. 2. No evidence for acute intrathoracic disease evident. Dr. Mejia has reviewed this radiology report. Radiology Interpretation Completed By: Radiologist - CT Brain CT CT Interpretation: No Acute Changes - IMPRESSION: No evidence for acute intracranial abnormality. Dr. Mejia has reviewed this radiology report. CT Interpretation Completed By: Radiologist - EKG 09:57 Cardiac Rate: Bradycardia EKG Rhythm: Sinus Bradycardia - at 58 bpm EKG Interpretation: T wave inversion in V2-V6. Course/Dx - Course Assessment/Plan: This pt is a 82 y/o female presenting to [facility] via EMS from [facility] for a seizure like activity. EMS reports the pt was in the library when pt had a tremor like activity. EMS was called for hypotension and pt looking pale. EMS states that for the past 30 minutes pt has had retching and altered mental status. Pt is unable to remember this seizure like episode. Pt denies any pain, headache, dizziness, SOB, chest pain, fever. Per EMS pt is usually very lucid and is talkative. Test results without any significant abnormalities. First troponin is 0.00, 4 hours later, second troponin is 2.38. Urinalysis is contaminated. Influenza A and B is negative. Brain CT: No evidence for acute intracranial abnormality. Chest XR: 1. Stigmata of probable chronic obstructive pulmonary disease. 2. No evidence for acute intrathoracic disease evident. In the ED course the pt was given aspirin and heparin, since I believe the pt is having a NSTEMI because the troponin is significantly elevated. At this point I discussed the case with Dr. Grove, hospitalist, who accepted the pt to the telemetry floor. Pt is hemodynamically stable, alert and oriented x3. - Diagnoses Provider Diagnoses: Elevated troponin, rule out NSTEMI - Physician Notifications Discussed Care Of Patient With: Epifanio Grove Time Discussed With Above Provider: 13:32 Instructed by Provider To: Other - I discussed pt care with Dr. Grove, hospitalist, who has agreed to admit the pt. - Critical Care Time Critical Care Time: 75-104 min Discharge - Discharge Plan Condition: Improved Disposition: ADMITTED TO [facility] documentation as recorded by the Good sarabia Angela accurately reflects the service I personally performed and the decisions made by me, Ramon Mejia MD.
--- NOTE | 2017-09-08 12:30 | DS ---
CC: Dr. Romero * DISCHARGE SUMMARY: DATE OF ADMISSION: 09/06/17 DATE OF DISCHARGE: 09/07/17 PRIMARY CARE PROVIDER: Dr. Romero. PRIMARY DIAGNOSES: 1. Weakness/presyncope. 2. Falsely elevated troponin. SECONDARY DIAGNOSES: Include: 1. Possible urinary tract infection. 2. Dementia. MEDICATIONS ON DISCHARGE: Include: 1. Bactrim double strength 1 tab twice daily for 6 days. Please note, urine microbiology is still pending. 2. Acetaminophen 650 mg every 4 hours as needed. 3. Seroquel 12.5 mg in the morning. 4. Loperamide 2 to 4 mg daily as needed. 5. Seroquel 25 mg in the evening. 6. Seroquel 12.5 mg give half hour after routine dose, no more than 1 p.r.n. dose daily. 7. Ativan 0.5 mg in the evening. 8. Probiotic 1 cap daily. 9. Lexapro 10 mg daily. 10. Donepezil 10 mg at bedtime. 11. Cranberry fruit extract 850 mg daily. 12. Vitamin D 50,000 units monthly. 13. Multivitamin 1 tab daily. PERTINENT LABORATORY DATA: Urine positive for a leuk esterase, white blood cells, red blood cells, and 1+ bacteria. Positive for squamous epithelial cells. Negative for nitrites. White blood cell count is 7.3 on discharge. Negative for influenza. Troponin I one value measured at 2.38, three other values are all 0.00. HISTORY OF PRESENT ILLNESS AND HOSPITAL COURSE: This is an 82-year-old female, past medical history as outlined in the history of present illness on the day of admission including dementia, who had been feeling ill for several days prior to presenting according to the EMS and [facility] records, reported not feeling well and then felt cold and clammy, never had a fever, presented to the hospital. Second troponin was elevated at 2.3 as indicated above; however, repeat troponin is 0.00. She was admitted secondary to the elevated troponin, placed on a heparin drip and monitored on telemetry; however, once the third troponin returned at 0.00, heparin drip was discontinued. She was continued to be monitored overnight. There was no change in her clinical status, felt back to her baseline the following day. Family agreed. She appeared back to her baseline and was anxious to bring her back to [facility]. Because of the patient 's urinalysis which certainly can represent contamination, I have chosen to start her on Bactrim for a 3-day course for complicated cystitis because I suspect urine microbiology may be difficult to follow up soon after discharge. FOLLOWUP: 1. Follow up urine microbiology to ensure Bactrim is appropriate antibiotic selection. 2. No other specific labs or vitals that need followup. Reasons to return to the hospital included, but are not limited to recurrent or worsening symptoms, including loss of consciousness, clammy or cold sensation, fevers, chills, night sweats, chest pain, shortness of breath, nausea, vomiting , loss of consciousness, inability to obtain or tolerate medications were discussed with family. They acknowledged understanding. TIME SPENT: Greater than 45 minutes was spent on discharge of this patient, greater than half was spent [id number] with the patient. [id number]/[facility] #: [id number] MTDD
== END 2017-09-07 14:20 | DRG 948 ==
LOC: ED 09:41 → MEDTELE 14:39
PROVIDERS: ADMIT Internal Medicine; ATTEND Internal Medicine
DX: R53.1 Weakness (principal); J44.9 Chronic obstructive pulmonary disease, unspecified; F03.90 Unspecified dementia, unspecified severity, without behavioral disturbance, psychotic disturbance, mood disturbance, and anxiety; N39.0 Urinary tract infection, site not specified; R74.8 Abnormal levels of other serum enzymes; Z79.1 Long term (current) use of non-steroidal anti-inflammatories (NSAID); Z79.899 Other long term (current) drug therapy
CPT/HCPCS: 36415; 70450; 71045; 80048; 80053; 80061; 81003; 81015; 83605; 83735; 84484; 85025; 85610; 85730; 87040; 87086; 87502; 93005; 99283; A9270-GY; J1630; J1644

== ENCOUNTER 2018-02-21 17:16 | Emergency (ER) | payer MEDICARE ==
--- NOTE | 2018-02-21 18:29 | ED ---
Adult Trauma - HPI Summary HPI Summary: This is [facility] documenting for attending Jose Mejia MD. Pt is a 82 y/o F presenting to ED s/p fall from standing height while gardening. Assoc. Sx: Diarrhea, bump on head, hand laceration. Pt was gardening in the courtyard when she experienced a fall, hitting her head on the ground and obtaining a laceration on her R hand. When asked if patient is experiencing any other pain, she flung her extremities in the air, confirming that she is not experiencing any other pains. Daughter at bedside, stated that pt did not want to get up until noon today and was found at lunch with her head down on the table as if she was tired and resting. Also noted, pt has concerns of a possible UTI and her bp that was recorded at 90/50 earlier this date. - History of Current Complaint Chief Complaint: EDFacialInjury Stated Complaint: FALL Time Seen by Provider: 02/21/18 17:56 Hx Obtained From: Patient, Family/Swabber Mechanism of Injury: Direct Blow, Fall Loss of Consciousness: no loss of consciousness Onset/Duration: Started Hours Ago Onset of Pain: Immediate Current Severity: None Pain Intensity: 0 Pain Scale Used: 0-10 Numeric Location: Head, Other - R hand Aggravating Factor(s): Nothing Associated Signs & Symptoms: Positive: Memory Loss - Pt a little confused at baseline - dementia, Other: - Pos: Diarrhea, bump on head, hand laceration. Neg: All other reviewed and N/C. - Additional Pertinent History Primary Care Physician: SIVA - Allergy/Home Medications Allergies/Adverse Reactions: Allergies Allergy/AdvReac Type Severity Reaction Status Date / Time No Known Allergies Allergy Verified 12/30/16 03:06 Home Medications: Home Medications QUEtiapine TAB* [Seroquel 25 MG TAB*] 25 mg PO BID 02/21/18 [History Confirmed 02/21/18] PMH/Surg Hx/FS Hx/Imm Hx Cardiovascular History: Denies: Hx Hypertension Sensory History: Reports: Hx Contacts or Glasses Denies: Hx Hearing Aid Opthamlomology History: Reports: Hx Contacts or Glasses Infectious Disease History: Unable to Obtain/Confirm Infectious Disease History: Denies: Traveled Outside the [place] in Last 30 Days - Family History Known Family History: Negative: Cardiac Disease, Hypertension Family History: Pt is uncertain due to AMS. - Social History Alcohol Use: None Hx Substance Use: No Substance Use Type: Reports: None Hx Tobacco Use: No Smoking Status (MU): Never Smoked Tobacco Review of Systems Positive: Diarrhea Negative: Decreased ROM Positive: Other - Pos: bump on head, R hand laceration All Other Systems Reviewed And Are Negative: Yes Physical Exam - Summary Physical Exam Summary: VITAL SIGNS: Reviewed. GENERAL: Patient is a well-developed and nourished (MALE OR FEMALE) who is lying comfortable in the stretcher. Patient is not in any acute respiratory distress. HEAD AND FACE: goose egg bump right side of forehead. No sinus tenderness. EYES: PERRLA, EOMI x 2, No injected conjunctiva, no nystagmus. EARS: Hearing grossly intact. Ear canals and tympanic membranes are within normal limits. MOUTH: Oropharynx within normal limits. NECK: Supple, trachea is midline, no adenopathy, no JVD, no carotid bruit, no c- spine tenderness, neck with full ROM. CHEST: Symmetric, no tenderness at palpation LUNGS: Clear to auscultation bilaterally. No wheezing or crackles. CVS: Regular rate and rhythm, S1 and S2 present, no murmurs or gallops appreciated. ABDOMEN: Soft, non-tender. No signs of distention. No rebound no guarding, and no masses palpated. Bowel sounds are normal. EXTREMITIES: FROM in all major joints, no edema, no cyanosis or clubbing. NEURO: Alert and oriented x 3. No acute neurological deficits. Speech is normal and follows commands. SKIN: Dry and warm. 0.5 cm laceration - R palm. Triage Information Reviewed: Yes Vital Signs On Initial Exam: Initial Vitals Temp Pulse Resp BP Pulse Ox 98.8 F 71 21 169/111 96 02/21/18 17:58 02/21/18 17:58 02/21/18 17:58 02/21/18 17:58 02/21/18 17:58 Vital Signs Reviewed: Yes Procedures - Laceration/Wound Repair 1 Location: upper extremity - RUE, palm of R hand Closure: Skin Adhesive - glue, SteriStrips Diagnostics - Vital Signs Vital Signs Temp Pulse Resp BP Pulse Ox 02/21/18 17:58 98.8 F 71 21 169/111 96 - Laboratory Result Diagrams: 02/21/18 19:12 07/31/18 19:12 Lab Statement: Any lab studies that have been ordered have been reviewed, and results considered in the medical decision making process. - CT Brain CT Interpretation: No Acute Changes - IMPRESSION: 1. No calvarial fracture or acute intracranial hemorrhage. 2. No facial bone fractures. 3. No fracture or dislocation of the cervical spine. 4. There are at least 2 subcentimeter hypoattenuating foci in the right lobe of the thyroid and the thyroid gland is mildly heterogeneous in attenuation. This appearance is similar to the previous CT of the cervical spine dated December 30, 2016. If clinically warranted superior characterization of the thyroid can be made with a nonemergent ultrasound. CT Interpretation Completed By: Radiologist Brain, C-spine, maxillofacial CT Interpretation: No Acute Changes - IMPRESSION: 1. No calvarial fracture or acute intracranial hemorrhage. 2. No facial bone fractures. 3. No fracture or dislocation of the cervical spine. 4. There are at least 2 subcentimeter hypoattenuating foci in the right lobe of the thyroid and the thyroid gland is mildly heterogeneous in attenuation. This appearance is similar to the previous CT of the cervical spine dated December 30, 2016. If clinically warranted superior characterization of the thyroid can be made with a nonemergent ultrasound. CT Interpretation Completed By: Radiologist Adult Trauma Course/Dx - Course Assessment/Plan: Pt is a 82 y/o F presenting to ED s/p fall from standing height while gardening. Assoc. Sx: Diarrhea, bump on head, hand laceration. Pt was gardening in the courtyard when she experienced a fall, hitting her head on the ground and obtaining a laceration on her R hand. When asked if patient is experiencing any other pain, she flung her extremities in the air, confirming that she is not experiencing any other pains. Daughter at bedside, stated that pt did not want to get up until noon today and was found at lunch with her head down on the table as if she was tired and resting. Also noted, pt has concerns of a possible UTI and her bp that was recorded at 90/50 earlier this date. Blood test results without a significant abnormality, creatinine was 0.97, glucose 101. Urinalysis positive for nitrates. The patient has a positive urologic infection. Therefore the patient was started on Bactrim. Head CT impression: no evidence for intracranial hemorrhage. Facial bone CT impression : No distress fracture dislocation. C-spine CT impression: No definite fracture dislocation. Thyroid nodules seam in the to the nodules found on CT done in December 30, 2016. Patient and patients daughter declined sutures, dishes when the Steri-Strips. I also up a slight amount of glue. The patient is ambulatory therefore the patient will be discharged home with follow-up with primary care physician. Patient is hemodynamically stable and attempted 3. I discussed all these findings and test results with the patients daughter. - Diagnoses Differential Diagnosis/HQI/PQRI: Positive: Abrasion(s), Contusion(s), Fracture, Sprain, Strain Provider Diagnoses: UTI (urinary tract infection), Laceration, Head contusion Discharge - Sign-Out/Discharge Documenting (check all that apply): Patient Departure - Discharge Plan Condition: Stable Disposition: HOME Patient Education Materials: Laceration (ED), Urinary Tract Infection in Women (ED), Contusion in Adults (ED) Referrals: Simran Romero MD [Primary Care Provider] - 3 Days Additional Instructions: FOLLOW UP WITH YOUR PRIMARY CARE PROVIDER WITHIN ONE WEEK FOR HIGH BLOOD PRESSURE NOTED TODAY. RETURN TO THE ED FOR ANY WORSENING OR NEW SYMPTOMS. - Billing Disposition and Condition Condition: STABLE Disposition: Home
--- NOTE | 2018-02-21 19:15 | RAD ---
indication: Trauma the right for head after a fall from a standing height COMPARISON: Same CT series dated December 30, [address] scan of the brain, maxillofacial bones and c-spine was performed without intravenous contrast enhancement. Contiguous axial sections were obtained from the lung apices through the vertex of the skull. BRAIN: The ventricles, cisterns and sulci exhibit symmetrical involutional changes unchanged from previous CT examination. No significant focal abnormality or mass effect is seen. There is mild periventricular and subcortical white matter change most consistent with chronic microvascular disease. The kim-white differentiation is adequately maintained. There is no evidence for intracranial hemorrhage. There is coarse atherosclerotic calcification of the bilateral vertebral arteries and petrous carotid arteries. Incidental note is made of hyperostosis frontalis interna. The calvarium is intact without radiographically apparent fracture. The mastoid air cells are appropriately aerated. FACIAL BONES: Bones: There is no displaced fracture or dislocation. The orbital rim is intact. The zygomatic arch is intact. The pterygoid plates are intact Orbits: The globes are round. The optic nerves are symmetric. The extraocular musculature is normal. There is no post septal or intraconal inflammatory change. There is no retrobulbar hematoma. Paranasal Sinuses: The paranasal sinuses are clear. C-SPINE: Degenerative changes of the cervical spine includes straightening of the lower cervical spine with exaggeration of lordosis more superiorly. Similar to the previous CT of the cervical spine. There is loss of intervertebral disc height at multiple levels with marginal osteophyte formation. No definite fracture or dislocation. There is no prevertebral soft tissue swelling. There is no hyperdense material in the cervical canal to indicate hemorrhage. The visualized musculature and soft tissues are normal. There is no gross lymphadenopathy visualized. At the posterior right lobe of the thyroid there is a 6 mm hypoattenuating focus that is similar in appearance to the previous CT of the cervical spine. The thyroid gland has mildly heterogeneous which is also stable. The visualized portion of the lung apices are clear. IMPRESSION: 1. No calvarial fracture or acute intracranial hemorrhage. 2. No facial bone fractures. 3. No fracture or dislocation of the cervical spine. 4. There are at least 2 subcentimeter hypoattenuating foci in the right lobe of the thyroid and the thyroid gland is mildly heterogeneous in attenuation. This appearance is similar to the previous CT of the cervical spine dated December 30, 2016. If clinically warranted superior characterization of the thyroid can be made with a nonemergent ultrasound.
[2018-02-21 19:21] LABS: ABS Basophils 0 10^3/ul (0-0.2); ABS Eosinophils 0.2 10^3/ul (0-0.6); ABS Lymphocytes 1.7 10^3/ul (1.0-4.8); ABS Monocytes 0.5 10^3/ul (0-0.8); ABS Neutrophils 3.8 10^3/ul (1.5-7.7); ABS Nucleated RBC 0 10^3/ul; Eosinophil % 3.6 % (0-6); Hematocrit 44 % (35-47); Hemoglobin 14.8 g/dl (12.0-16.0); Lymphocyte % 27.7 % (25-47); Mean Corpuscular HGB Conc 34 g/dl (31-36); Mean Corpuscular Hemoglobin 30 pg (27-31); Mean Corpuscular Volume 88 fL (80-97); Mean Platelet Volume 9.1 um3 (7.4-10.4); Nucleated Red Blood Cells % 0.1; Platelet Count 240 10^3/ul (150-450); Red Blood Count 4.95 10^6/ul (4.00-5.40); Red Cell Distribution Width 14 % (10.5-15); White Blood Count 6.2 10^3/ul (3.5-10.8)
[2018-02-21 19:31] LABS: Urine Appearance Cloudy; Urine Blood 1+ (Negative); Urine Color Yellow; Urine Ketones Negative (Negative); Urine Protein 1+(30 mg/dL) (Negative); Urine Red Blood Cell 3+(>10/hpf) (Absent); Urine Specific Gravity 1.014 (1.010-1.030); Urine Urobilinogen Negative (Negative); Urine White Blood Cell 3+(>20/hpf) (Absent)
[2018-02-21 19:41] LABS: EGFR Non-African American 55.3 (>60)
[2018-02-21] MEDS ORDERED: Sulfamethox/Trimethoprim DS 800/160* TAB PO ONE (20:19)
[2018-02-21 21:04] VITALS: BP 133/95
== END 2018-02-21 21:03 | disposition home or self-care (01) ==
LOC: ED 17:16
DX: S00.93XA Contusion of unspecified part of head, initial encounter (principal); S61.411A Laceration without foreign body of right hand, initial encounter; W19.XXXA Unspecified fall, initial encounter; Y93.H2 Activity, gardening and landscaping; Y92.096 Garden or yard of other non-institutional residence as the place of occurrence of the external cause; N39.0 Urinary tract infection, site not specified; E04.2 Nontoxic multinodular goiter
CPT/HCPCS: 12001; 36415; 70450; 70486; 72125; 80053; 81003; 81015; 85025; 87077; 87086; 87186; 99283; A9270-GY

== ENCOUNTER 2018-05-11 16:40 | Emergency (ER) | payer MEDICARE ==
[2018-05-11] MEDS ORDERED: NS 0.9% 1000 ML*IV.FLUID IV ONE (17:24)
--- NOTE | 2018-05-11 18:09 | ED ---
Back Pain - HPI Summary HPI Summary: Plan patient with history of recurrent UTI on Cipro complains of mechanical fall today. Fall was witnessed, patient landed on her bottom, complaining of low back pain. Patient has history of recurrent UTI currently on second round of antibiotics taking Cipro now. Prior antibiotic unknown. Patient has history of Alzheimer's and confusion at baseline, but denies any other pain, injury, symptoms, including fever, cough, sore throat, CP, SOB, N/V/D, abdominal pain, urinary symptoms, change in BM. Medical history is hypertension. Patient is accompanied by daughter who is providing medical information for patient. - History of Current Complaint Chief Complaint: EDGeneral Stated Complaint: LWR BACK PAIN Time Seen by Provider: 05/11/18 17:41 Hx Obtained From: Patient, Family/Die Trouble Shooter Hx From Patient Unobtainable Due To: Dementia Onset/Duration: Started Hours Ago Timing: Constant Back Pain Location: Is Discrete @ Severity Initially: Moderate Severity Currently: Moderate Pain Intensity: 6 Pain Scale Used: 0-10 Numeric - Allergies/Home Medications Allergies/Adverse Reactions: Allergies Allergy/AdvReac Type Severity Reaction Status Date / Time No Known Allergies Allergy Verified 05/11/18 16:55 Home Medications: Home Medications Ciprofloxacin TAB* [Cipro 500 MG TAB*] 500 mg PO BID 05/11/18 [History Confirmed 05/11/18] amLODIPine TAB* [Norvasc 5 mg TAB*] 2.5 mg PO DAILY 05/11/18 [History Confirmed 05/11/18] PMH/Surg Hx/FS Hx/Imm Hx Endocrine/Hematology History: Denies: Hx Anticoagulant Therapy Cardiovascular History: Denies: Hx Cardiac Arrest, Hx Hypertension History: Denies: Hx Dialysis Sensory History: Reports: Hx Contacts or Glasses Denies: Hx Hearing Aid Opthamlomology History: Reports: Hx Contacts or Glasses Infectious Disease History: No Infectious Disease History: Denies: Traveled Outside the [place] in Last 30 Days - Family History Known Family History: Negative: Cardiac Disease, Hypertension Family History: Pt is uncertain due to AMS. - Social History Alcohol Use: None Hx Substance Use: No Substance Use Type: Reports: None Hx Tobacco Use: No Smoking Status (MU): Never Smoked Tobacco Review of Systems Constitutional: Negative Eyes: Negative ENT: Negative Cardiovascular: Negative Respiratory: Negative Gastrointestinal: Negative Genitourinary: Negative Musculoskeletal: Other Skin: Negative Neurological: Negative Psychological: Normal All Other Systems Reviewed And Are Negative: Yes Physical Exam - Summary Physical Exam Summary: Pain with palpation of lower mid back along spine. Back exam otherwise unremarkable. No pain with palpation of abdomen, chest wall, neck, head, face. No trauma noted to mouth. Patient moves all lateral upper extremities and bilateral lower extremities freely. Triage Information Reviewed: Yes Vital Signs On Initial Exam: Initial Vitals Temp Pulse Resp BP Pulse Ox 100.3 F 83 18 153/83 95 05/11/18 16:48 05/11/18 16:48 05/11/18 16:48 05/11/18 16:48 05/11/18 16:48 Vital Signs Reviewed: Yes Appearance: Positive: Well-Appearing Skin: Positive: Warm Head/Face: Positive: Normal Head/Face Inspection Eyes: Positive: Normal ENT: Positive: Normal ENT inspection Neck: Positive: Supple Respiratory/Lung Sounds: Positive: Clear to Auscultation Cardiovascular: Positive: Normal Abdomen Description: Positive: Nontender Musculoskeletal: Positive: Normal Neurological: Positive: Normal Psychiatric: Positive: Normal AVPU Assessment: Alert - Marty Coma Scale Best Eye Response: 4 - Spontaneous Best Motor Response: 6 - Obeys Commands Best Verbal Response: 5 - Oriented Coma Scale Total: 15 Diagnostics - Vital Signs Vital Signs Temp Pulse Resp BP Pulse Ox 05/11/18 16:48 100.3 F 83 18 153/83 95 - Laboratory Result Diagrams: 05/11/18 19:53 05/11/18 19:53 Lab Statement: Any lab studies that have been ordered have been reviewed, and results considered in the medical decision making process. - CT l spine CT Interpretation: No Acute Changes CT Interpretation Completed By: Radiologist t spine CT Interpretation: Positive (See Comments) - Acute minimal compression fracture superior endplate T12 Back Pain Course/Dx - Course Course Of Treatment: Plan patient with history of recurrent UTI on Cipro complains of mechanical fall today. Fall was witnessed, patient landed on her bottom, complaining of low back pain. Patient has history of recurrent UTI currently on second round of antibiotics taking Cipro now. Prior antibiotic unknown. Patient has history of Alzheimer's and confusion at baseline, but denies any other pain, injury, symptoms, including fever, cough, sore throat, CP , SOB, N/V/D, abdominal pain, urinary symptoms, change in BM. Medical history is hypertension. Patient is accompanied by daughter who is providing medical information for patient. Physical exam:Pain with palpation of lower mid back along spine. Back exam otherwise unremarkable. No pain with palpation of abdomen, chest wall, neck, head, face. No trauma noted to mouth. Patient moves all lateral upper extremities and bilateral lower extremities freely. Fever 101. Vital signs otherwise unremarkable. Lactic 2.2. WBC 11.9. Labs otherwise unremarkable. Chest x-ray unremarkable. UA negative. CT chest abdomen pelvis negative. Flu negative. Zosyn and vancomycin given IV. 2 L NS given. No source for fever found. Fever controlled. Discussed pt with Dr Moody who recommended d/c home and follow up with primary care. Follow-up with orthopedics for acute vertebral compression fracture at T12. Blood cultures pending. - Diagnoses Provider Diagnoses: Fall, Vertebral compression fracture, Fever Discharge - Sign-Out/Discharge Documenting (check all that apply): Patient Departure - Discharge Plan Condition: Stable Disposition: HOME Patient Education Materials: Vertebral Compression Fracture (ED), Fever in Adults (ED) Referrals: No Primary Care Phys,NOPCP [Primary Care Provider] - Frank Wong MD [Medical Doctor] - Additional Instructions: Follow-up with orthopedics Dr. Wong for vertebral compression fracture. Return to the ED for any new or worsening symptoms. - Billing Disposition and Condition Condition: STABLE Disposition: Home
--- NOTE | 2018-05-11 19:52 | RAD ---
EXAM: CT Thoracic Spine Without Intravenous Contrast CLINICAL HISTORY: 82 years old, female; Pain; Pain in thoracic spine; Additional info: Fall TECHNIQUE: Axial computed tomography images of the thoracic spine without intravenous contrast. All CT scans at this facility use at least one of these dose optimization techniques: automated exposure control; mA and/or kV adjustment per patient size (includes targeted exams where dose is matched to clinical indication); or iterative reconstruction. Coronal and sagittal reformatted images were created and reviewed. COMPARISON: No relevant prior studies available. FINDINGS: Vertebrae: There is an acute minimal compression fracture of the superior endplate of T12 without retropulsion. Osteopenia and mild degenerative change. Discs/spinal canal/neural foramina: No acute findings. No spinal canal stenosis. Soft tissues: Unremarkable. Mediastinum: Large hiatal hernia. IMPRESSION: 1. There is an acute minimal compression fracture of the superior endplate of T12 without retropulsion. 2. Large hiatal hernia. To contact [facility] with a general question: [facility] - [phone] For direct physician to physician contact: Physician Hotline - [phone] [facility] ([facility] Facility ID #[id number])
--- NOTE | 2018-05-11 19:53 | RAD ---
EXAM: CT Lumbar Spine Without Intravenous Contrast CLINICAL HISTORY: 82 years old, female; Pain; Low back pain; Additional info: Fall TECHNIQUE: Axial computed tomography images of the lumbar spine without intravenous contrast. All CT scans at this facility use at least one of these dose optimization techniques: automated exposure control; mA and/or kV adjustment per patient size (includes targeted exams where dose is matched to clinical indication); or iterative reconstruction. Coronal and sagittal reformatted images were created and reviewed. COMPARISON: No relevant prior studies available. FINDINGS: Vertebrae: There is an acute slight compression fracture superior endplate of T12 without retropulsion. 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 Chronic compression deformity superior endplate of L3. No acute lumbar fracture. Discs/spinal canal/neural foramina: Moderate degenerative change without dominant disc herniation. Moderate narrowing of the neural foramina bilaterally at L5-S1 contributed to by the anterior listhesis. Soft tissues: Unremarkable. IMPRESSION: 1. There is an acute slight compression fracture superior endplate of T12 without retropulsion. 2. 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 Chronic compression deformity superior endplate of L3. No acute lumbar fracture. 3. Moderate degenerative change without dominant disc herniation. Moderate narrowing of the neural foramina bilaterally at L5-S1 contributed to by the anterior listhesis. To contact [facility] with a general question: [facility] - [phone] For direct physician to physician contact: Physician Hotline - [phone] [facility] ([facility] Facility ID #[id number])
[2018-05-11 20:07] LABS: ABS Basophils 0 10^3/ul (0-0.2); ABS Eosinophils 0.1 10^3/ul (0-0.6); ABS Lymphocytes 1.3 10^3/ul (1.0-4.8); ABS Monocytes 0.7 10^3/ul (0-0.8); ABS Neutrophils 9.6 10^3/ul (1.5-7.7); ABS Nucleated RBC 0 10^3/ul; Eosinophil % 0.5 % (0-6); Hematocrit 42 % (35-47); Hemoglobin 14.2 g/dl (12.0-16.0); Lymphocyte % 10.9 % (25-47); Mean Corpuscular HGB Conc 34 g/dl (31-36); Mean Corpuscular Hemoglobin 30 pg (27-31); Mean Corpuscular Volume 88 fL (80-97); Mean Platelet Volume 9.3 um3 (7.4-10.4); Nucleated Red Blood Cells % 0.1; Platelet Count 209 10^3/ul (150-450); Red Blood Count 4.77 10^6/ul (4.00-5.40); Red Cell Distribution Width 14 % (10.5-15); White Blood Count 11.6 10^3/ul (3.5-10.8)
[2018-05-11 20:16] LABS: INR 0.98 (0.77-1.02)
[2018-05-11 20:25] LABS: Urine Appearance Clear; Urine Blood 2+ (Negative); Urine Color Yellow; Urine Ketones Trace (Negative); Urine Protein Negative (Negative); Urine Red Blood Cell 3+(>10/hpf) (Absent); Urine Specific Gravity 1.009 (1.010-1.030); Urine Urobilinogen Negative (Negative); Urine White Blood Cell Trace(0-5/hpf) (Absent)
[2018-05-11 20:32] LABS: EGFR Non-African American 62.6 (>60)
[2018-05-11] MEDS ORDERED: Acetaminophen TAB* 325 MG ONE (20:36)
[2018-05-11] MEDS ORDERED: Acetaminophen TAB* 325 MG PO ONE (20:38)
[2018-05-11] MEDS ORDERED: NS 0.9% 1000 ML* 1,000 ML IV ONE (21:08)
[2018-05-11] MEDS ORDERED: Vancomycin(*) 1,000 MG in NS 0.9% 250 ML* 250 ML IVPB ONE (21:11)
[2018-05-11] MEDS ORDERED: Piperacillin/Tazobac ADVAN(*) 3.375 GM in NS 0.9% 100 ML* 100 ML IVPB ONE (21:11)
[2018-05-11] MEDS ORDERED: Iohexol 300* (CONTRAST) 10 ML SDV IV ONE (21:18)
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
[2018-05-12] MEDS ORDERED: Ibuprofen TAB* 600 MG PO ONE (00:01)
[2018-05-12 00:53] VITALS: BP 138/74
--- NOTE | 2018-05-12 07:37 | RAD ---
INDICATION: Fever. COMPARISON: Comparison is made with a prior x-ray study of the chest from September 06, 2017. TECHNIQUE: A portable view of the chest was obtained. FINDINGS: Cardiac and mediastinal contours appear to be within normal limits. There is a large hiatal hernia present. The lungs are clear. No pleural effusion is seen. IMPRESSION: 1. CLEAR LUNGS. 2. LARGE HIATAL HERNIA. R2
--- NOTE | 2018-05-12 18:16 | ED ---
Progress - Progress Note Progress Note: Final radiology read reveals "impression: 1 clear lungs. 2 large hiatal hernia ". Patient was seen for fall with back pain - diagnosed with compression fracture. No GI symptoms reported. These findings do not appear to be relevant patient's visit. Course/Dx - Course Course Of Treatment: Plan patient with history of recurrent UTI on Cipro complains of mechanical fall today. Fall was witnessed, patient landed on her bottom, complaining of low back pain. Patient has history of recurrent UTI currently on second round of antibiotics taking Cipro now. Prior antibiotic unknown. Patient has history of Alzheimer's and confusion at baseline, but denies any other pain, injury, symptoms, including fever, cough, sore throat, CP , SOB, N/V/D, abdominal pain, urinary symptoms, change in BM. Medical history is hypertension. Patient is accompanied by daughter who is providing medical information for patient. Physical exam:Pain with palpation of lower mid back along spine. Back exam otherwise unremarkable. No pain with palpation of abdomen, chest wall, neck, head, face. No trauma noted to mouth. Patient moves all lateral upper extremities and bilateral lower extremities freely. Fever 101. Vital signs otherwise unremarkable. Lactic 2.2. WBC 11.9. Labs otherwise unremarkable. Chest x-ray unremarkable. UA negative. CT chest abdomen pelvis negative. Flu negative. Zosyn and vancomycin given IV. 2 L NS given. No source for fever found. Fever controlled. Discussed pt with Dr Moody who recommended d/c home and follow up with primary care. Follow-up with orthopedics for acute vertebral compression fracture at T12. Blood cultures pending. - Diagnoses Provider Diagnoses: Fall, Vertebral compression fracture, Fever Discharge - Sign-Out/Discharge Documenting (check all that apply): Post-Discharge Follow Up - Discharge Plan Condition: Stable Disposition: HOME Patient Education Materials: Vertebral Compression Fracture (ED), Fever in Adults (ED) Referrals: No Primary Care Phys,NOPCP [Primary Care Provider] - Frank Wong MD [Medical Doctor] - Additional Instructions: Follow-up with orthopedics Dr. Wong for vertebral compression fracture. Return to the ED for any new or worsening symptoms. - Billing Disposition and Condition Condition: STABLE Disposition: Home
== END 2018-05-12 00:53 | disposition home or self-care (01) ==
LOC: ED 16:40
DX: S22.089A Unspecified fracture of T11-T12 vertebra, initial encounter for closed fracture (principal); K44.9 Diaphragmatic hernia without obstruction or gangrene; W19.XXXA Unspecified fall, initial encounter; Y92.9 Unspecified place or not applicable; N39.0 Urinary tract infection, site not specified; R50.9 Fever, unspecified
CPT/HCPCS: 36415; 71045; 71260; 72128; 72131; 74177; 80053; 81003; 81015; 83605; 84484; 85025; 85610; 87040; 87086; 96361; 96374; 96375; 99283; A9270-GY; J2543; J3370; Q9967

== ENCOUNTER → 2018-05-26 13:21 | Emergency (ER) | payer MEDICARE ==
[~2018-05-26 13:21] MED LIST: Cephalexin CAP* 500 MG PO ONE
[2018-05-26 14:15] LABS: ABS Basophils 0.1 10^3/ul (0-0.2); ABS Eosinophils 0.2 10^3/ul (0-0.6); ABS Monocytes 0.5 10^3/ul (0-0.8); ABS Neutrophils 3.7 10^3/ul (1.5-7.7); ABS Nucleated RBC 0 10^3/ul; Eosinophil % 3.2 % (0-6); Hematocrit 39 % (35-47); Hemoglobin 13.4 g/dl (12.0-16.0); Lymphocyte % 30.8 % (25-47); Mean Corpuscular HGB Conc 35 g/dl (31-36); Mean Corpuscular Hemoglobin 31 pg (27-31); Mean Corpuscular Volume 88 fL (80-97); Mean Platelet Volume 8.5 fL (7.4-10.4); Nucleated Red Blood Cells % 0.1; Platelet Count 304 10^3/ul (150-450); Red Blood Count 4.39 10^6/ul (4.00-5.40); Red Cell Distribution Width 14 % (10.5-15); White Blood Count 6.4 10^3/ul (3.5-10.8)
[2018-05-26 14:28] LABS: EGFR Non-African American 59.5 (>60)
--- NOTE | 2018-05-26 14:39 | RAD ---
HISTORY: ams COMPARISONS: May 11, 2018 VIEWS: 1: frontal AP view of the chest at 2:05 PM FINDINGS: LINES AND TUBES: None. CARDIOMEDIASTINAL SILHOUETTE: The cardiomediastinal silhouette is normal for portable technique. PLEURA: The costophrenic angles are sharp. No pleural abnormalities are noted. LUNG PARENCHYMA: The lungs are clear. ABDOMEN: There is large hiatal hernia BONES AND SOFT TISSUES: No bone or soft tissue abnormalities are noted. IMPRESSION: NO ACTIVE CARDIOPULMONARY DISEASE. HIATAL HERNIA.
[2018-05-26 16:01] LABS: Urine Appearance Cloudy; Urine Blood 1+ (Negative); Urine Color Yellow; Urine Ketones Negative (Negative); Urine Protein Negative (Negative); Urine Red Blood Cell Absent (Absent); Urine Specific Gravity 1.012 (1.010-1.030); Urine Urobilinogen Negative (Negative); Urine White Blood Cell 3+(>20/hpf) (Absent)
[2018-05-26 16:55] VITALS: BP 149/99
--- NOTE | 2018-05-26 16:55 | ED ---
Neurological HPI - HPI Summary HPI Summary: An 82 y/o female REYNA presents to the ED c/o AMS 05/26/2018. Per EMS she was at [facility] when she went pale, her lips turned purple and she became unresponsive. According to herself, she was fine. Per EMS she had stroke-like symptoms but no fall was reported. Pt is a level 5 caveat due to her AMS. Hx of dementia. - History of Current Complaint Chief Complaint: EDAltMentalStatus Stated Complaint: AMS Hx Obtained From: Patient, EMS Hx From Patient Unobtainable Due To: Dementia Pain Intensity: 0 - Additional Pertinent History Primary Care Physician: SIVA - Allergy/Home Medications Allergies/Adverse Reactions: Allergies Allergy/AdvReac Type Severity Reaction Status Date / Time No Known Allergies Allergy Verified 05/11/18 16:55 PMH/Surg Hx/FS Hx/Imm Hx Endocrine/Hematology History: Denies: Hx Anticoagulant Therapy, Hx Diabetes Cardiovascular History: Denies: Hx Cardiac Arrest, Hx Hypertension History: Denies: Hx Dialysis Sensory History: Reports: Hx Contacts or Glasses Denies: Hx Hearing Aid Opthamlomology History: Reports: Hx Contacts or Glasses Infectious Disease History: No Infectious Disease History: Denies: Traveled Outside the [place] in Last 30 Days - Family History Known Family History: Negative: Cardiac Disease, Hypertension Family History: Pt is uncertain due to AMS. - Social History Alcohol Use: None Hx Substance Use: No Substance Use Type: Reports: None Hx Tobacco Use: No Smoking Status (MU): Never Smoked Tobacco Review of Systems - ROS Summary Review of Systems Summary: Patient is a level 5 caveat due to her AMS. Negative: Fever Neurological: Other - Dementia All Other Systems Reviewed And Are Negative: No Physical Exam - Summary Physical Exam Summary: Appearance: Alert, conversive, nontoxic appearing Skin: Warm, dry, no mottling, no rashes, no contusions HEENT: EOMI, PERRL, moist mucous membranes Neck: No masses on the neck, supple Respiratory: Clear to auscultation, breath sounds present, no rales, no rhonchi , no wheezes Cardiovascular: RRR, pulses are symmetrical in both lower and upper extremities Abdomen: Soft, non-tender Bowel Sounds: Present Musculoskeletal: No CVA tenderness, no obvious deformity, moving all extremities in a grossly normal manner Neurological: Dementia Psychiatric: Normal affect and mood Triage Information Reviewed: Yes Vital Signs On Initial Exam: Initial Vitals Temp Pulse Resp BP Pulse Ox 97.0 F 63 16 115/64 93 05/26/18 13:29 05/26/18 13:29 05/26/18 13:29 05/26/18 13:29 05/26/18 13:29 Vital Signs Reviewed: Yes Diagnostics - Vital Signs Vital Signs Temp Pulse Resp BP Pulse Ox 05/26/18 15:06 17 05/26/18 14:32 67 18 117/69 93 05/26/18 14:02 63 17 119/68 92 05/26/18 14:00 60 14 93 05/26/18 13:32 63 115/64 93 05/26/18 13:31 60 91 05/26/18 13:29 97.0 F 63 16 115/64 93 - Laboratory Lab Results: Lab Results 05/26/18 05/26/18 05/26/18 Range/Units 14:05 14:05 15:32 WBC 6.4 (3.5-10.8) 10^3/ul RBC 4.39 (4.00-5.40) 10^6/ul Hgb 13.4 (12.0-16.0) g/dl Hct 39 (35-47) % MCV 88 (80-97) fL MCH 31 (27-31) pg MCHC 35 (31-36) g/dl RDW 14 (10.5-15) % Plt Count 304 (150-450) 10^3/ul MPV 8.5 (7.4-10.4) fL Neut % (Auto) 57.8 (38-83) % Lymph % (Auto) 30.8 (25-47) % [place] % (Auto) 7.4 H (0-7) % Eos % (Auto) 3.2 (0-6) % Baso % (Auto) 0.8 (0-2) % Absolute Neuts (auto) 3.7 (1.5-7.7) 10^3/ul Absolute Lymphs (auto) 2.0 (1.0-4.8) 10^3/ul Absolute Monos (auto) 0.5 (0-0.8) 10^3/ul Absolute Eos (auto) 0.2 (0-0.6) 10^3/ul Absolute Basos (auto) 0.1 (0-0.2) 10^3/ul Absolute Nucleated RBC 0 10^3/ul Nucleated RBC % 0.1 Sodium 138 (135-145) mmol/L Potassium 3.6 (3.5-5.0) mmol/L Chloride 103 (101-111) mmol/L Carbon Dioxide 28 (22-32) mmol/L Anion Gap 7 (2-11) mmol/L BUN 15 (6-24) mg/dL Creatinine 0.91 (0.51-0.95) mg/dL Est GFR ( Amer) 72.0 (>60) Est GFR (Non-Af Amer) 59.5 (>60) BUN/Creatinine Ratio 16.5 (8-20) Glucose 98 (70-100) mg/dL Calcium 9.2 (8.6-10.3) mg/dL Magnesium 2.1 (1.9-2.7) mg/dL Total Bilirubin 0.40 (0.2-1.0) mg/dL AST 20 (13-39) U/L ALT 17 (7-52) U/L Alkaline Phosphatase 101 (34-104) U/L Troponin I 0.00 (<0.04) ng/mL Total Protein 6.5 (6.4-8.9) g/dL Albumin 3.5 (3.2-5.2) g/dL Globulin 3.0 (2-4) g/dL Albumin/Globulin Ratio 1.2 (1-3) TSH 2.65 (0.34-5.60) mcIU/mL Urine Color Yellow Urine Appearance Cloudy Urine pH 5.0 (5-9) Ur Specific [place] 1.012 (1.010-1.030) Urine Protein Negative (Negative) Urine Ketones Negative (Negative) Urine Blood 1+ A (Negative) Urine Nitrate Negative (Negative) Urine Bilirubin Negative (Negative) Urine Urobilinogen Negative (Negative) Ur Leukocyte Esterase 3+ A (Negative) Urine WBC (Auto) 3+(>20/hpf) A (Absent) Urine RBC (Auto) Absent (Absent) Ur Squamous Epith Cells Present A (Absent) Ur Renal Epithelial Cell Present A (Absent) Urine Bacteria 1+ A (Absent) Hyaline Casts Present A (Absent) Urine Glucose 1+(50 mg/dl) A (Negative) Urine Ascorbic Acid * A (Negative) Result Diagrams: 05/26/18 14:05 05/26/18 14:05 Lab Statement: Any lab studies that have been ordered have been reviewed, and results considered in the medical decision making process. - Radiology CXR Radiology Interpretation Completed By: Radiologist - No active cardiopulmonary disease. Hiatal hernia. This report has been reviewed by the ED physician. - EKG 14:12 Cardiac Rate: NL - 66 bpm EKG Rhythm: Sinus Rhythm Summary of EKG Findings: normal QRS, normal QTc, normal axis, non-specific ST wave changes Course/Dx - Course Course Of Treatment: An 82 y/o female REYNA presents to the ED c/o AMS 2017. She has dementia. Her urinalysis results are consistent with a UTI. Her CXR showed a hiatal hernia.Her daughter states that she is at her baseline so she will be discharged with a dx of dementia and UTI. - Diagnoses Provider Diagnoses: Dementia, UTI (urinary tract infection) Discharge - Sign-Out/Discharge Documenting (check all that apply): Patient Departure - DC - Discharge Plan Condition: Stable Disposition: HOME Prescriptions: Cephalexin CAP* [Keflex CAP*] 500 mg PO TID #21 cap MDD 3 Patient Education Materials: Urinary Tract Infection in Women (ED), Altered Mental Status (ED) Referrals: No Primary Care Phys,NOPCP [Primary Care Provider] - Additional Instructions: take the antibiotic, keflex, as instructed. return if worse or any new symptoms. It is important to follow up with your primary care physician tuesday. - Billing Disposition and Condition Condition: STABLE Disposition: Home - Attestation Statements Document Initiated by Simone: Yes Documenting Scribe: Murphy Fletcher Provider For Whom Simone is Documenting (Include Credential): Radhika Ward MD Scribe Attestation: IMurphy, scribed for Radhika Ward MD on 05/26/18 at 2032. Scribe Documentation Reviewed: Yes Provider Attestation: The documentation as recorded by the Murphy saraiba accurately reflects the service I personally performed and the decisions made by me, Radhika Ward MD
== END | disposition home or self-care (01) ==
LOC: ED 13:21
DX: N39.0 Urinary tract infection, site not specified (principal); F03.90 Unspecified dementia, unspecified severity, without behavioral disturbance, psychotic disturbance, mood disturbance, and anxiety
CPT/HCPCS: 36415; 71045; 80053; 81003; 81015; 83735; 84443; 84484; 85025; 87086; 93005; 99283; 99285; 99490; A9270-GY

== ENCOUNTER 2019-10-22 14:01 | Emergency (ER) | payer MEDICARE ==
--- NOTE | 2019-10-22 14:11 | ED ---
Complex/Multi-Sys Presentation - HPI Summary HPI Summary: Patient is an 84 y/o F presenting to the ED via EMS for a chief complaint of confusion and bladder/urinary incontinence after a fall that occurred on . Per patient's daughter, this is not new and is at baseline. Patient states she does not recall falling. Patient denies any complaints, including cough, chest pain, shortness of breath, abdominal pain, dysuria, or headache. Per EMS, patient had a UTI during a previous visit. No aggravating or alleviating factors are reported. HISTORY OF PRESENT ILLNESS IS LIMITED DUE TO LEVEL 5 CAVEAT - CONFUSION. - History Of Current Complaint Time Seen by Provider: 10/22/19 14:05 Hx Obtained From: Patient Hx From Patient Unobtainable Due To: Altered Mental Status - Confusion Onset/Duration: Sudden Onset, Still Present Timing: Constant Severity Currently: Moderate Severity Initially: Moderate Aggravating Factor(s): Nothing Alleviating Factor(s): Nothing Associated Signs And Symptoms: Positive: Confusion. Negative: Headache, SOB, Cough, Chest Pain, Abdominal Pain, Dysuria - Allergies/Home Medications Allergies/Adverse Reactions: Allergies Allergy/AdvReac Type Severity Reaction Status Date / Time No Known Allergies Allergy Verified 05/11/18 16:55 Home Medications: Home Medications Acetaminophen TAB* [Tylenol TAB*] 650 mg PO Q4H PRN 09/06/17 [History Confirmed 05/26/18] Cholecalciferol TAB* [Vitamin D TAB*] 50,000 unit PO MONTHLY 09/06/17 [History Confirmed 05/26/18] Cranberry Fruit Extract [Cranberry] 850 mg PO DAILY 09/06/17 [History Confirmed 05/26/18] Donepezil TAB* [Aricept 5 MG TAB*] 10 mg PO BEDTIME 09/06/17 [History Confirmed 05/26/18] Escitalopram * [Lexapro 10 mg (NF)] 15 mg PO DAILY 09/06/17 [History Confirmed 05/26/18] L.acidoph,Paracasei, B.lactis [Probiotic] 1 cap PO DAILY 09/06/17 [History Confirmed 05/26/18] Loperamide CAP* [Imodium CAP*] 2 - 4 mg PO DAILY PRN 09/06/17 [History Confirmed 05/26/18] Multivitamins/Minerals TAB* [Theragran/minerals TAB*] 1 tab PO DAILY 09/06/17 [ History Confirmed 05/26/18] QUEtiapine TAB* [Seroquel 25 MG TAB*] 25 mg PO BID PRN 02/21/18 [History Confirmed 05/26/18] Ciprofloxacin TAB* [Cipro 500 MG TAB*] 500 mg PO BID 05/11/18 [History Confirmed 05/26/18] amLODIPine TAB* [Norvasc 5 mg TAB*] 2.5 mg PO DAILY 05/11/18 [History Confirmed 05/26/18] Cephalexin CAP* [Keflex CAP*] 500 mg PO TID #21 cap MDD 3 05/26/18 [Rx] Cephalexin CAP* [Keflex CAP*] 500 mg PO TID 5 Days #15 cap 10/22/19 [Rx] PMH/Surg Hx/FS Hx/Imm Hx Previously Healthy: No - LIMITED DUE TO LEVEL 5 CAVEAT - CONFUSION. Endocrine/Hematology History: Denies: Hx Anticoagulant Therapy, Hx Diabetes Cardiovascular History: Denies: Hx Cardiac Arrest, Hx Hypertension History: Denies: Hx Dialysis Sensory History: Reports: Hx Contacts or Glasses Denies: Hx Hearing Aid Opthamlomology History: Reports: Hx Contacts or Glasses - Surgical History Surgical History: None Surgery Procedure, Year, and Place: None Infectious Disease History: No Infectious Disease History: Denies: Traveled Outside the [place] in Last 30 Days - Family History Known Family History: Negative: Cardiac Disease, Hypertension Family History: Pt is uncertain due to AMS. - Social History Occupation: Retired Lives: Assisted Living Alcohol Use: None Hx Substance Use: No Substance Use Type: Reports: None Hx Tobacco Use: No Smoking Status (MU): Never Smoked Tobacco Review of Systems Negative: Chest Pain Negative: Shortness Of Breath, Cough Negative: Abdominal Pain Positive: incontinence - Positive bowel and urinary. Negative: dysuria Neurological/Mental Status: Other - Positive confusion Negative: Headache All Other Systems Reviewed And Are Negative: No - Comments Additional Review of Systems Comments: REVIEW OF SYSTEMS IS LIMITED DUE TO LEVEL 5 CAVEAT - CONFUSION. Physical Exam - Summary Physical Exam Summary: PHYSICAL EXAM IS LIMITED DUE TO LEVEL 5 CAVEAT - CONFUSION. Constitutional: Well-developed, Well-nourished, Alert. (-) Distressed Skin: Warm, Dry HENT: Normocephalic; Atraumatic Eyes: Conjunctiva normal Neck: Musculoskeletal ROM normal neck. (-) JVD, (-) Stridor, (-) Tracheal deviation Cardio: Rhythm regular, rate normal, Heart sounds normal; Intact distal pulses; The pedal pulses are 2+ and symmetric. Radial pulses are 2+ and symmetric. (-) Murmur Pulmonary/Chest wall: Effort normal. (-) Respiratory distress, (-) Wheezes, (-) Rales Abd: Soft, (-) tenderness, (-) Distension, (-) Guarding, (-) Rebound Musculoskeletal: (-) Edema Lymph: (-) Cervical adenopathy Neuro: No focal deficits, moving all extremities, alert to person only Psych: Mood and affect Normal Triage Information Reviewed: Yes Vital Signs Reviewed: Yes Completion Of Physical Exam Limited Due To: Level 5 Procedures - Sedation Patient Received Moderate/Deep Sedation with Procedure: No Diagnostics - Laboratory Result Diagrams: 10/22/19 14:47 10/22/19 14:47 Lab Statement: Any lab studies that have been ordered have been reviewed, and results considered in the medical decision making process. - EKG 14:40 Cardiac Rate: NL - 66 BPM EKG Rhythm: Sinus Rhythm ST Segment: Normal Ectopy: None Summary of EKG Findings: EKG at 14:40 shows normal sinus rhythm with 66 BPM, PACs, no ischemic changes, QTc is 573. Dr. Segura has reviewed and interpreted this EKG. Complex Multi-Symp Course/Dx Course Of Treatment: LIMITED DUE TO LEVEL 5 CAVEAT - CONFUSION. Patient is an 84 y/o F presenting to the ED via EMS for a chief complaint of confusion and bladder/urinary incontinence after a fall that occurred on 10/22/19. Per patient 's daughter, this is not new and is at baseline. Patient states she does not recall falling. Patient denies any complaints, including cough, chest pain, shortness of breath, abdominal pain, dysuria, or headache. Per EMS, patient had a UTI during a previous visit. On exam, no focal deficits, moving all extremities, alert to person only. In the ED course, patient was given Lidocaine 3.6 ml IM and Rocephin 1000 mg IM. EKG at 14:40 shows normal sinus rhythm with 66 BPM, PACs, no ischemic changes, QTc is 573. UA shows UTI. All other abnormal lab results are not pertinent to current cc. Patient will be discharged with a diagnosis of weakness, syncope, and UTI. Follow up with PCP as needed. - Diagnoses Provider Diagnoses: Syncope, UTI (urinary tract infection), Weakness Discharge ED - Sign-Out/Discharge Documenting (check all that apply): Patient Departure - Discharge - Discharge Plan Condition: Stable Disposition: HOME Prescriptions: Cephalexin CAP* [Keflex CAP*] 500 mg PO TID 5 Days #15 cap Patient Education Materials: Urinary Tract Infection in Women (ED) Referrals: [facility] [Outside] - If Needed Additional Instructions: RETURN TO THE EMERGENCY DEPARTMENT FOR CHANGING OR WORSENING SYMPTOMS. Follow up with your primary care physician as needed. - Billing Disposition and Condition Condition: STABLE Disposition: Home - Attestation Statements Document Initiated by Simone: Yes Documenting Scribe: Mely Easton Provider For Whom Simone is Documenting (Include Credential): Dangelo Segura DO Scribe Attestation: Mely Morales scribed for Dangelo Segura DO on 10/22/19 at 1700. Scribe Documentation Reviewed: Yes Provider Attestation: The documentation as recorded by the Mely sarabia accurately reflects the service I personally performed and the decisions made by Dangelo petersen DO Status of Scribe Document: Viewed
--- OUTSIDE RECORDS SUMMARY | 2019-10-22 14:32 | XMS REPORT ---
:1935 Author Organization [facility] Care Team Providers Name Role Phone Unavailable Unavailable Unavailable Problems Condition Condition Condition Status Onset Resolution Last Treating Comments Name Details Category Date Date Treatment Clinician Date Essential Essential Diagnosis Active 2020- Mina (primary) (primary) 2-20 [place], hypertensio hypertensio PT n n 016280-3 Low back Low back Diagnosis Active 2020- Mina pain pain 2-20 [place], [place] 439123-3 Unspecified Unspecified Diagnosis Active 2020- Mina abnormaliti abnormaliti 2-20 [place], es of gait es of gait PT and and 712515-2 mobility mobility 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[place], with late with late PT onset onset 481350-3 Anxiety Anxiety Diagnosis Active 2020- Mina disorder, disorder, 2-20 [place], unspecified unspecified PT 926591-0 Pain frequent Pain Mgmt Resolve 2020-2019-09-13 Trudi pain d 2-20 10:10:00 [place] 10:10: [id number] Respiratory dyspnea Respirator Resolve 2019-09-13 Trudi present y d 2-20 10:10:00 [place] 10:10: [id number] 00 Sensory impaired Sensory Resolve 2019-09-13 Trudi hearing d 2-20 10:10:00 [place] 10:10: [id number] 00 Nutrition nutritional Nutrition Resolve 2019-09-13 Trudi restriction d 2-20 10:10:00 [place] 10:10: [id number] 00 Elimination urinary Eliminatio Resolve 2019-09-13 Trudi incontinenc n d 2-20 10:10:00 [place] 10:10: [id number] 00 Elimination recurring Eliminatio Resolve 2019-2019-09-13 Trudi UTI n d 2-20 10:10:00 [place] 10:10: [id number] 00 Neuro impaired Neuro/Emot Resolve 2019-09-13 Trudi decision-ma ion d 2-20 10:10:00 [place] felicia 10:10: [id number] 00 Neuro behavior Neuro/Emot Resolve 2019-09-13 Trudi problems ion d 2-20 10:10:00 [place] 10:10: [id number] Neuro psychiatric Neuro/Emot Resolve 2019-09-13 Trudi problems ion d 2-20 10:10:00 [place] 10:10: [id number] 00 Neuro memory Neuro/Emot Resolve 2019-09-13 Trudi deficit ion d 2-20 10:10:00 [place] needing 10:10: [id number] 00 Neuro constant Neuro/Emot Resolve 2019-09-13 Trudi confusion ion d 2-20 10:10:00 [place] 10:10: [id number] 00 Activity ADL Activity Resolve 2019-09-13 Trudi assistance d 2-20 10:10:00 [place] required 10:10: [id number] 00 Activity self-care Activity Resolve 2019-09-13 Trudi deficit d 2-20 10:10:00 [place] 10:10: [id number] 00 Safety cannot be Safety Resolve 2019-09-13 Trudi left alone d 2-20 10:10:00 [place] 10:10: [id number] 00 Safety fall risk Safety Resolve 2019-09-13 Trudi factor d 2-20 10:10:00 [place] present 10:10: [id number] 00 Safety risk for Safety Resolve 2019-09-13 Trudi hospitaliza d 2-20 10:10:00 [place] tion 10:10: [id number] 00 Medication oral med Meds Resolve 2019-09-13 Trudi assistance d 2-20 10:10:00 [place] required 10:10: [id number] 00 Musculoskel transfer Musculoske Resolve 2019-09-13 Trudi etal assistance letal d 2-20 10:10:00 [place] required 10:10: [id number] 00 Musculoskel requires Musculoske Resolve 2019-09-13 Trudi etal human letal d 2-20 10:10:00 [place] assist to 10:10: [id number] leave home 00 Bed transfer PT/OT: Bed Active Mina Mobility/Tr deficit: Mobility/T 2-20 luis Perry sit/stand ransfer 13:45: PT 00 [id number] Bed transfer PT/OT: Bed Active Mina Mobility/Tr deficit: Mobility/T 2-20 luis Perry standing ransfer 13:45: PT pivot 00 029119-6 Bed transfer PT/OT: Bed Active Mina Mobility/Tr deficit: Mobility/T 2-20 luis Perry toilet/comm ransfer 13:45: PT ode 00 035215-1 Bed transfer PT/OT: Bed Active Mina Mobility/Tr deficit: Mobility/T 2-20 luis Perry shower/tub ransfer 13:45: PT 00 555965-7 Bed knowledge/s PT/OT: Bed Active Mina Mobility/Tr kill Mobility/T 2-20 [place] luis deficit: pt ransfer 13:45: PT 00 882074-6 Bed bed PT/OT: Bed Active Mina Mobility/Tr mobility Mobility/T 2-20 luis Perry deficit ransfer 13:45: PT 00 [id number] Gait/Locomo gait PT/OT: Active Mina tion assistive Gait/Locom 2-20 [place], problems device otion 13:45: PT present 00 396003-2 Gait/Locomo knowledge/s PT/OT: Active Mina tion kill Gait/Locom 2-20 [place], problems deficit: pt otion 13:45: PT 00 [id number] Gait/Locomo knowledge/s PT/OT: Active 20200 Mina tion kill Gait/Locom 2-20 [place], problems deficit: cg otion 13:45: PT 00 587952-5 Gait/Locomo gait PT/OT: Active 2019-0 Mina tion deficit Gait/Locom 2-20 [place], problems otion 13:45: PT 00 [id number] Safety risk for Safety Active 2019-0 Mina hospitaliza 2-24 [place], tion 09:15: PT 00 [id number] Safety fall risk Safety Active 2019-0 [place]ina White factor 2-25 present 15:21: 45 Allergies, Adverse Reactions, Alerts Allergy Allergy Status Severity Reaction(s) Onset Inactive Treating Comments Name Type Date Date Clinician Unknown None Active Unknown None Unknown No Known Allergies For This Patient Medications Ordered Filled Start Stop Current Ordering Indication Dosage Frequency Signature Comments Components Medication Medication Date Date Medication? Clinician (SIG) Name Name donepezil 5 donepezil 5 2020-0 Yes Jander Unknown Unknown mg tablet mg tablet 2-20 MD,Simran escitalopra escitalopra 2020-0 Yes Jander Unknown Unknown m 10 mg m 10 mg 2-20 MD,Simran tablet tablet amLODIPine amLODIPine 2019-0 Yes Jander Unknown Unknown 2.5 mg 2.5 mg 2-20 MD,Simran tablet tablet Bengay Bengay 2020-0 Yes Jander Unknown Unknown Greaseless Greaseless 2-20 MD,Simran 15 %-10 % 15 %-10 % topical topical cream cream SEROquel 25 SEROquel 25 2020-0 Yes Jander Unknown Unknown mg tablet mg tablet 2-20 MD,Simran cetirizine cetirizine 2019-0 Yes Jander Unknown Unknown 10 mg 10 mg 2-20 MD,Simran capsule capsule acetaminoph acetaminoph 2020-0 Yes Jander Unknown Unknown en 325 mg en 325 mg 2-20 MD,Simran tablet tablet cholecalcif cholecalcif 2020-0 Yes Jander Unknown Unknown byron byron 2-20 MD,Simran (vitamin (vitamin D3) 50,000 D3) 50,000 unit unit capsule capsule d-mannose d-mannose 2020-0 Yes Jander Unknown Unknown oral powder oral powder 2-20 MD,Simran loperamide loperamide 2019-0 Yes Jander Unknown Unknown 2 mg 2 mg 2-20 MD,Simran capsule capsule Centrum Centrum 2020-0 Yes Jander Unknown Unknown Silver 400 Silver 400 2-20 MD,Simran mcg-250 mcg mcg-250 mcg chewable chewable tablet tablet Vital Signs Vital Name Observation Time Observation Value Comments SYSTOLIC mm[Hg] 2019-10-02 18:10:48 122 mm[Hg] mm[Hg] Method: Sit SYSTOLIC mm[Hg] 2019-09-13 18:10:29 120 mm[Hg] mm[Hg] Method: Stand DIASTOLIC mm[Hg] 2019-10-02 18:10:48 80 mm[Hg] mm[Hg] Method: Sit DIASTOLIC mm[Hg] 2019-09-13 18:10:29 89 mm[Hg] mm[Hg] Method: Stand PULSE 2019-10-02 18:10:48 74 /min /min RESP RATE 2019-10-02 18:10:48 20 /min /min TEMP 2019-10-02 18:10:48 97.2 [degF] Procedures This patient has no known procedures. Results This patient has no known results.
--- OUTSIDE RECORDS SUMMARY | 2019-10-22 14:32 | XMS REPORT ---
:1935 Author Organization [facility] Care Team Providers Name Role Phone Unavailable Unavailable Unavailable Problems Condition Condition Condition Status Onset Resolution Last Treating Comments Name Details Category Date Date Treatment Clinician Date Essential Essential Diagnosis Active 2020- Mina (primary) (primary) 2-20 [place], hypertensio hypertensio PT n n 660339-8 Low back Low back Diagnosis Active 2020- Mina pain pain 2-20 [place], PT 211416-8 Unspecified Unspecified Diagnosis Active 2020- Mina abnormaliti abnormaliti 2-20 [place], es of gait es of gait PT and and 120610-3 mobility mobility 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[place], with late with late PT onset onset 071611-1 Anxiety Anxiety Diagnosis Active 2020- Mina disorder, disorder, 2-20 [place], unspecified unspecified PT 832053-2 Pain frequent Pain Mgmt Resolve 2020-2019-09-13 Trudi pain d 2-20 10:10:00 [place] 10:10: [id number] 00 Respiratory dyspnea Respirator Resolve 2019-09-13 Trudi present y d 2-20 10:10:00 [place] 10:10: [id number] 00 Sensory impaired Sensory Resolve 2019-09-13 Trudi hearing d 2-20 10:10:00 [place] 10:10: [id number] 00 Nutrition nutritional Nutrition Resolve 2019-09-13 Trudi restriction d 2-20 10:10:00 [place] s 10:10: [id number] 00 Elimination urinary Eliminatio Resolve 2019-09-13 Trudi incontinenc n d 2-20 10:10:00 [place] e 10:10: [id number] 00 Elimination recurring Eliminatio Resolve 2019-2019-09-13 Trudi UTI n d 2-20 10:10:00 [place] 10:10: [id number] 00 Neuro impaired Neuro/Emot Resolve 2019-09-13 Trudi decision-ma ion d 2-20 10:10:00 [place] felicia 10:10: [id number] 00 Neuro behavior Neuro/Emot Resolve 2019-09-13 Trudi problems ion d 2-20 10:10:00 [place] 10:10: [id number] 00 Neuro psychiatric Neuro/Emot Resolve 2019-09-13 Trudi problems ion d 2-20 10:10:00 [place] 10:10: [id number] 00 Neuro memory Neuro/Emot Resolve 2019-09-13 Trudi deficit ion d 2-20 10:10:00 [place] needing 10:10: [id number] 00 Neuro constant Neuro/Emot Resolve 2019-09-13 Trudi confusion ion d 2-20 10:10:00 [place] 10:10: [id number] 00 Activity ADL Activity Resolve 2019-09-13 Trudi assistance d 2-20 10:10:00 [place] required 10:10: [id number] 00 Activity self-care Activity Resolve 2019-09-13 Trudi deficit d 2-20 10:10:00 [place] 10:10: [id number] 00 Safety cannot be Safety Resolve 2019-09-13 Trudi left alone d 2-20 10:10:00 [place] 10:10: [id number] 00 Safety fall risk Safety Resolve 2019-09-13 Trudi factor d 2-20 10:10:00 [place] present 10:10: [id number] 00 Safety risk for Safety Resolve 2019-09-13 Trudi hospitaliza d 2-20 10:10:00 [place] tion 10:10: [id number] 00 Medication oral med Meds Resolve 2019-09-13 Trudi assistance d 2-20 10:10:00 [place] required 10:10: [id number] 00 Musculoskel transfer Musculoske Resolve 2019-09-13 Trudi etal assistance letal d 2-20 10:10:00 [place] required 10:10: [id number] 00 Musculoskel requires Musculoske Resolve 2019-09-13 Trudi etal human letal d 2-20 10:10:00 [place] assist to 10:10: [id number] leave home 00 Bed transfer PT/OT: Bed Active Mina Mobility/Tr deficit: Mobility/T 2-20 luis Perry sit/stand ransfer 13:45: PT 00 [id number] Bed transfer PT/OT: Bed Active Mina Mobility/Tr deficit: Mobility/T 2-20 luis Perry standing ransfer 13:45: PT pivot 00 676435-7 Bed transfer PT/OT: Bed Active Mina Mobility/Tr deficit: Mobility/T 2-20 luis Perry toilet/comm ransfer 13:45: PT ode 00 888081-6 Bed transfer PT/OT: Bed Active Mina Mobility/Tr deficit: Mobility/T 2-20 luis Perry shower/tub ransfer 13:45: PT 00 305457-6 Bed knowledge/s PT/OT: Bed Active Mina Mobility/Tr kill Mobility/T 2-20 [place] luis deficit: pt ransfer 13:45: PT 00 864240-3 Bed bed PT/OT: Bed Active Mina Mobility/Tr mobility Mobility/T 2-20 luis Perry deficit ransfer 13:45: PT 00 268342-3 Gait/Locomo gait PT/OT: Active Mina tion assistive Gait/Locom 2-20 [place], problems device otion 13:45: PT present 00 474686-0 Gait/Locomo knowledge/s PT/OT: Active Mina tion kill Gait/Locom 2-20 [place], problems deficit: pt otion 13:45: PT 00 729831-5 Gait/Locomo knowledge/s PT/OT: Active 20200 Mina tion kill Gait/Locom 2-20 [place], problems deficit: cg otion 13:45: PT 00 837716-5 Gait/Locomo gait PT/OT: Active 2019-0 Mina tion deficit Gait/Locom 2-20 [place], problems otion 13:45: PT 00 386377-0 Safety risk for Safety Active 2019-0 Mina hospitaliza 2-24 [place], tion 09:15: PT 00 [id number] Safety fall risk Safety Active 2019-0 [place] [...] mg 2-20 MD,Simran tablet tablet amLODIPine amLODIPine 2020-0 Yes Jander Unknown Unknown 2.5 mg 2.5 [...] Observation Time Observation Value Comments SYSTOLIC mm[Hg] 2019-10-05 18:10:51 142 mm[Hg] mm[Hg] Method: Sit SYSTOLIC mm[Hg] 2019-09-13 18:10:29 120 mm[Hg] mm[Hg] Method: Stand DIASTOLIC mm[Hg] 2019-10-05 18:10:51 80 mm[Hg] mm[Hg] Method: Sit DIASTOLIC mm[Hg] 2019-09-13 18:10:29 89 mm[Hg] mm[Hg] Method: Stand PULSE 2019-10-05 18:10:51 70 /min /min RESP RATE 2019-10-05 18:10:51 20 /min /min TEMP 2019-10-05 18:10:51 97.2 [degF] Procedures This patient has no known procedures. Results This patient has no known results.
--- OUTSIDE RECORDS SUMMARY | 2019-10-22 14:32 | XMS REPORT ---
:1935 Author Organization [facility] Care Team Providers Name Role Phone Unavailable Unavailable Unavailable Problems Condition Condition Condition Status Onset Resolution Last Treating Comments Name Details Category Date Date Treatment Clinician Date Essential Essential Diagnosis Active 2020- Mina (primary) (primary) 2-20 [place], hypertensio hypertensio PT n n 084846-7 Low back Low back Diagnosis Active 2020- Mina pain pain 2-20 [place], PT 515944-5 Unspecified Unspecified Diagnosis Active 2020- Mina abnormaliti abnormaliti 2-20 [place], es of gait es of gait PT and and 130940-1 mobility mobility 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[place], with late with late PT onset onset 979022-4 Anxiety Anxiety Diagnosis Active 2020- Mina disorder, disorder, 2-20 [place], unspecified unspecified PT 959970-6 Pain frequent Pain Mgmt Resolve 2020-2019-09-13 Trudi pain d 2-20 10:10:00 [place] 10:10: [id number] 00 Respiratory dyspnea Respirator Resolve 2019-09-13 Trudi present y d 2-20 10:10:00 [place] 10:10: [id number] 00 Sensory impaired Sensory Resolve 2019-09-13 Trudi hearing d 2-20 10:10:00 [place] 10:10: [id number] 00 Nutrition nutritional Nutrition Resolve 2019-09-13 Trudi restriction d 2-20 10:10:00 [place] s 10:10: [id number] 00 Elimination urinary Eliminatio Resolve 2019-09-13 Trudi incontinenc n d 2-20 10:10:00 [place] e 10:10: [id number] 00 Elimination recurring Eliminatio Resolve 2019-2019-09-13 Trudi UTI n d 2-20 10:10:00 [place] 10:10: [id number] 00 Neuro impaired Neuro/Emot Resolve 2019-09-13 Trudi decision-ma ion d 2-20 10:10:00 [place] felicia 10:10: [id number] 00 Neuro behavior Neuro/Emot Resolve 2019-09-13 Trudi problems ion d 2-20 10:10:00 [place] 10:10: [id number] 00 Neuro psychiatric Neuro/Emot Resolve 2019-09-13 Trudi problems ion d 2-20 10:10:00 [place] 10:10: [id number] 00 Neuro memory Neuro/Emot Resolve 2019-09-13 Trudi deficit ion d 2-20 10:10:00 [place] needing 10:10: [id number] 00 Neuro constant Neuro/Emot Resolve 2019-09-13 Trudi confusion ion d 2-20 10:10:00 [place] 10:10: [id number] 00 Activity ADL Activity Resolve 2019-09-13 Trudi assistance d 2-20 10:10:00 [place] required 10:10: [id number] 00 Activity self-care Activity Resolve 2019-09-13 Trudi deficit d 2-20 10:10:00 [place] 10:10: [id number] 00 Safety cannot be Safety Resolve 2019-09-13 Trudi left alone d 2-20 10:10:00 [place] 10:10: [id number] 00 Safety fall risk Safety Resolve 2019-09-13 Trudi factor d 2-20 10:10:00 [place] present 10:10: [id number] 00 Safety risk for Safety Resolve 2019-09-13 Trudi hospitaliza d 2-20 10:10:00 [place] tion 10:10: [id number] 00 Medication oral med Meds Resolve 2019-09-13 Trudi assistance d 2-20 10:10:00 [place] required 10:10: [id number] 00 Musculoskel transfer Musculoske Resolve 2019-09-13 Trudi etal assistance letal d 2-20 10:10:00 [place] required 10:10: [id number] 00 Musculoskel requires Musculoske Resolve 2019-09-13 Trudi etal human letal d 2-20 10:10:00 [place] assist to 10:10: [id number] leave home 00 Bed transfer PT/OT: Bed Active Mina Mobility/Tr deficit: Mobility/T 2-20 luis Perry sit/stand ransfer 13:45: PT 00 980830-4 Bed transfer PT/OT: Bed Active Mina Mobility/Tr deficit: Mobility/T 2-20 luis Perry standing ransfer 13:45: PT pivot 00 [id number] Bed transfer PT/OT: Bed Active Mina Mobility/Tr deficit: Mobility/T 2-20 luis Perry toilet/comm ransfer 13:45: PT ode 00 153639-5 Bed transfer PT/OT: Bed Active Mina Mobility/Tr deficit: Mobility/T 2-20 luis Perry shower/tub ransfer 13:45: PT 00 657621-4 Bed knowledge/s PT/OT: Bed Active Mina Mobility/Tr kill Mobility/T 2-20 [place] luis deficit: pt ransfer 13:45: PT 00 639663-0 Bed bed PT/OT: Bed Active Mina Mobility/Tr mobility Mobility/T 2-20 luis Perry deficit ransfer 13:45: PT 00 084000-1 Gait/Locomo gait PT/OT: Active Mina tion assistive Gait/Locom 2-20 [place], problems device otion 13:45: PT present 00 414221-9 Gait/Locomo knowledge/s PT/OT: Active Mina tion kill Gait/Locom 2-20 [place], problems deficit: pt otion 13:45: PT 00 629816-5 Gait/Locomo knowledge/s PT/OT: Active 20200 Mina tion kill Gait/Locom 2-20 [place], problems deficit: cg otion 13:45: PT 00 239928-0 Gait/Locomo gait PT/OT: Active 2019-0 Mina tion deficit Gait/Locom 2-20 [place], problems otion 13:45: PT 00 556994-9 Safety risk for Safety Active 2019-0 Mina hospitaliza 2-24 [place], tion 09:15: PT 00 155746-0 Safety fall risk Safety Active 2019-0 Catalina [...] Observation Time Observation Value Comments SYSTOLIC mm[Hg] 2019-09-26 18:10:42 142 mm[Hg] mm[Hg] Method: Sit SYSTOLIC mm[Hg] 2019-09-13 18:10:29 120 mm[Hg] mm[Hg] Method: Stand DIASTOLIC mm[Hg] 2019-09-26 18:10:42 82 mm[Hg] mm[Hg] Method: Sit DIASTOLIC mm[Hg] 2019-09-13 18:10:29 89 mm[Hg] mm[Hg] Method: Stand PULSE 2019-09-26 18:10:42 84 /min /min RESP RATE 2019-09-26 18:10:42 16 /min /min TEMP 2019-09-26 18:10:42 97.2 [degF] Procedures This patient has no known procedures. Results This patient has no known results.
--- OUTSIDE RECORDS SUMMARY | 2019-10-22 14:32 | XMS REPORT ---
:1935 Author Organization [facility] Care Team Providers Name Role Phone Unavailable Unavailable Unavailable Problems Condition Condition Condition Status Onset Resolution Last Treating Comments Name Details Category Date Date Treatment Clinician Date Essential Essential Diagnosis Active 2020- Mina (primary) (primary) 2-20 [place], hypertensio hypertensio PT n n 174955-9 Low back Low back Diagnosis Active 2020- Mina pain pain 2-20 [place], PT 812619-0 Unspecified Unspecified Diagnosis Active 2020- Mina abnormaliti abnormaliti 2-20 [place], es of gait es of gait PT and and 129449-0 mobility mobility 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[place], with late with late PT onset onset 520607-6 Anxiety Anxiety Diagnosis Active 2020- Mina disorder, disorder, 2-20 [place], unspecified unspecified PT 908774-6 Pain frequent Pain Mgmt Resolve 2020-2019-09-13 Trudi pain d 2-20 10:10:00 [place] 10:10: [id number] 00 Respiratory dyspnea Respirator Resolve 2019-09-13 Trudi present y d 2-20 10:10:00 [place] 10:10: [id number] 00 Sensory impaired Sensory Resolve 2019-09-13 Trudi hearing d 2-20 10:10:00 [place] 10:10: [id number] 00 Nutrition nutritional Nutrition Resolve 2019-09-13 Trudi restriction d 2-20 10:10:00 [place] s 10:10: [id number] 00 Elimination urinary Eliminatio Resolve 2019-09-13 Trudi incontinenc n d 2-20 10:10:00 [place] e 10:10: [id number] 00 Elimination recurring Eliminatio Resolve 2019-2019-09-13 Trudi UTI n d 2-20 10:10:00 [place] 10:10: [id number] 00 Neuro impaired Neuro/Emot Resolve 2019-09-13 Trudi decision-ma ion d 2-20 10:10:00 [place] felicia 10:10: [id number] 00 Neuro behavior Neuro/Emot Resolve 2019-09-13 Trudi problems ion d 2-20 10:10:00 [place] 10:10: [id number] 00 Neuro psychiatric Neuro/Emot Resolve 2019-09-13 Trudi problems ion d 2-20 10:10:00 [place] 10:10: [id number] 00 Neuro memory Neuro/Emot Resolve 2019-09-13 Trudi deficit ion d 2-20 10:10:00 [place] needing 10:10: [id number] supervision 00 Neuro constant Neuro/Emot Resolve 2019-09-13 Trudi confusion ion d 2-20 10:10:00 [place] 10:10: [id number] 00 Activity ADL Activity Resolve 2019-09-13 Trudi assistance d 2-20 10:10:00 [place] required 10:10: [id number] 00 Activity self-care Activity Resolve 2019-09-13 Trudi deficit d 2-20 10:10:00 [place] 10:10: [id number] 00 Safety cannot be Safety Resolve 2019-09-13 Trudi left alone d 2-20 10:10:00 [place] 10:10: [id number] 00 Safety fall risk Safety Resolve 2019-09-13 Trudi factor d 2-20 10:10:00 [place] present 10:10: [id number] 00 Safety risk for Safety Resolve 2019-09-13 Trudi hospitaliza d 2-20 10:10:00 [place] tion 10:10: [id number] 00 Medication oral med Meds Resolve 2019-09-13 Trudi assistance d 2-20 10:10:00 [place] required 10:10: [id number] 00 Musculoskel transfer Musculoske Resolve 2019-09-13 Trudi etal assistance letal d 2-20 10:10:00 [place] required 10:10: [id number] 00 Musculoskel requires Musculoske Resolve 2019-09-13 Trudi etal human letal d 2-20 10:10:00 [place] assist to 10:10: [id number] leave home 00 Bed transfer PT/OT: Bed Active Mina Mobility/Tr deficit: Mobility/T 2-20 luis Perry sit/stand ransfer 13:45: PT 00 902651-7 Bed transfer PT/OT: Bed Active Mina Mobility/Tr deficit: Mobility/T 2-20 luis Perry standing ransfer 13:45: PT pivot 00 671244-0 Bed transfer PT/OT: Bed Active Mina Mobility/Tr deficit: Mobility/T 2-20 luis Perry toilet/comm ransfer 13:45: PT ode 00 898797-8 Bed transfer PT/OT: Bed Active Mina Mobility/Tr deficit: Mobility/T 2-20 luis Perry shower/tub ransfer 13:45: PT 00 547822-4 Bed knowledge/s PT/OT: Bed Active Mina Mobility/Tr kill Mobility/T 2-20 [place] luis deficit: pt ransfer 13:45: PT 00 515042-9 Bed bed PT/OT: Bed Active Mina Mobility/Tr mobility Mobility/T 2-20 luis Perry deficit ransfer 13:45: PT 00 387154-1 Gait/Locomo gait PT/OT: Active Mina tion assistive Gait/Locom 2-20 [place], problems device otion 13:45: PT present 00 499170-6 Gait/Locomo knowledge/s PT/OT: Active Mina tion kill Gait/Locom 2-20 [place], problems deficit: pt otion 13:45: PT 00 459139-7 Gait/Locomo knowledge/s PT/OT: Active 20200 Mina tion kill Gait/Locom 2-20 [place], problems deficit: cg otion 13:45: PT 00 463775-9 Gait/Locomo gait PT/OT: Active 2019-0 Mina tion deficit Gait/Locom 2-20 [place], problems otion 13:45: PT 00 588689-5 Safety risk for Safety Active 2019-0 Mina hospitaliza 2-24 [place], tion 09:15: PT 00 159174-4 Safety fall risk Safety Active 2019-0 [place] [...] Observation Time Observation Value Comments SYSTOLIC mm[Hg] 2019-09-19 18:10:35 122 mm[Hg] mm[Hg] Method: Sit SYSTOLIC mm[Hg] 2019-09-13 18:10:29 120 mm[Hg] mm[Hg] Method: Stand DIASTOLIC mm[Hg] 2019-09-19 18:10:35 72 mm[Hg] mm[Hg] Method: Sit DIASTOLIC mm[Hg] 2019-09-13 18:10:29 89 mm[Hg] mm[Hg] Method: Stand PULSE 2019-09-19 18:10:35 76 /min /min RESP RATE 2019-09-19 18:10:35 16 /min /min TEMP 2019-09-19 18:10:35 97.7 [degF] Procedures This patient has no known procedures. Results This patient has no known results.
--- OUTSIDE RECORDS SUMMARY | 2019-10-22 14:32 | XMS REPORT ---
:1935 Author Organization [facility] Care Team Providers Name Role Phone Unavailable Unavailable Unavailable Problems Condition Condition Condition Status Onset Resolution Last Treating Comments Name Details Category Date Date Treatment Clinician Date Essential Essential Diagnosis Active 2020- Mina (primary) (primary) 2-20 [place], hypertensio hypertensio PT n n 822929-7 Low back Low back Diagnosis Active 2020- Mina pain pain 2-20 [place], [place] 030969-0 Unspecified Unspecified Diagnosis Active 2020- Mina abnormaliti abnormaliti 2-20 [place], es of gait es of gait PT and and 971617-4 mobility mobility 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[place], with late with late PT onset onset 409644-0 Anxiety Anxiety Diagnosis Active 2020- Mina disorder, disorder, 2-20 [place], unspecified unspecified PT 573970-2 Pain frequent Pain Mgmt Resolve 2020-2019-09-13 Trudi pain d 2-20 10:10:00 [place] 10:10: [id number] 00 Respiratory dyspnea Respirator Resolve 2019-09-13 Trudi present y d 2-20 10:10:00 [place] 10:10: [id number] 00 Sensory impaired Sensory Resolve 2019-09-13 Trudi hearing d 2-20 10:10:00 [place] 10:10: [id number] 00 Nutrition nutritional Nutrition Resolve 2019-09-13 Trudi restriction d 2-20 10:10:00 [place] s 10:10: [id number] 00 Elimination urinary Eliminatio Resolve 2019-09-13 Trudi incontinenc n d 2-20 10:10:00 [place] e 10:10: [id number] 00 Elimination recurring Eliminatio Resolve 2019-2019-09-13 Trudi UTI n d 2-20 10:10:00 [place] 10:10: [id number] 00 Neuro impaired Neuro/Emot Resolve 2019-09-13 Trudi decision-ma ion d 2-20 10:10:00 [place] felicia 10:10: [id number] 00 Neuro behavior Neuro/Emot Resolve 2019-09-13 Trudi problems ion d 2-20 10:10:00 [place] 10:10: [id number] 00 Neuro psychiatric Neuro/Emot Resolve 2019-09-13 Trudi problems ion d 2-20 10:10:00 [place] 10:10: [id number] 00 Neuro memory Neuro/Emot Resolve 2019-09-13 Trudi deficit ion d 2-20 10:10:00 [place] needing 10:10: [id number] 00 Neuro constant Neuro/Emot Resolve 2019-09-13 Trudi confusion ion d 2-20 10:10:00 [place] 10:10: [id number] 00 Activity ADL Activity Resolve 2019-09-13 Trudi assistance d 2-20 10:10:00 [place] required 10:10: [id number] 00 Activity self-care Activity Resolve 2019-09-13 Trudi deficit d 2-20 10:10:00 [place] 10:10: [id number] 00 Safety cannot be Safety Resolve 2019-09-13 Trudi left alone d 2-20 10:10:00 [place] 10:10: [id number] 00 Safety fall risk Safety Resolve 2019-09-13 Trudi factor d 2-20 10:10:00 [place] present 10:10: [id number] 00 Safety risk for Safety Resolve 2019-09-13 Trudi hospitaliza d 2-20 10:10:00 [place] tion 10:10: [id number] 00 Medication oral med Meds Resolve 2019-09-13 Trudi assistance d 2-20 10:10:00 [place] required 10:10: [id number] 00 Musculoskel transfer Musculoske Resolve 2019-09-13 Trudi etal assistance letal d 2-20 10:10:00 [place] required 10:10: [id number] 00 Musculoskel requires Musculoske Resolve 2019-09-13 Trudi etal human letal d 2-20 10:10:00 [place] assist to 10:10: [id number] leave home 00 Bed transfer PT/OT: Bed Active Mina Mobility/Tr deficit: Mobility/T 2-20 luis Perry sit/stand ransfer 13:45: PT 00 135033-9 Bed transfer PT/OT: Bed Active Mina Mobility/Tr deficit: Mobility/T 2-20 luis Perry standing ransfer 13:45: PT pivot 00 125826-6 Bed transfer PT/OT: Bed Active Mina Mobility/Tr deficit: Mobility/T 2-20 luis Perry toilet/comm ransfer 13:45: PT ode 00 373063-5 Bed transfer PT/OT: Bed Active Mina Mobility/Tr deficit: Mobility/T 2-20 luis Perry shower/tub ransfer 13:45: PT 00 624740-3 Bed knowledge/s PT/OT: Bed Active Mina Mobility/Tr kill Mobility/T 2-20 [place] luis deficit: pt ransfer 13:45: PT 00 138338-7 Bed bed PT/OT: Bed Active Mina Mobility/Tr mobility Mobility/T 2-20 luis Perry deficit ransfer 13:45: PT 00 032649-6 Gait/Locomo gait PT/OT: Active Mina tion assistive Gait/Locom 2-20 [place], problems device otion 13:45: PT present 00 703601-8 Gait/Locomo knowledge/s PT/OT: Active Mina tion kill Gait/Locom 2-20 [place], problems deficit: pt otion 13:45: PT 00 872401-1 Gait/Locomo knowledge/s PT/OT: Active 20200 Mina tion kill Gait/Locom 2-20 [place], problems deficit: cg otion 13:45: PT 00 611617-9 Gait/Locomo gait PT/OT: Active 2019-0 Mina tion deficit Gait/Locom 2-20 [place], problems otion 13:45: PT 00 784481-8 Safety risk for Safety Active 2019-0 Mina hospitaliza 2-24 [place], tion 09:15: PT 00 136068-8 Safety fall risk Safety Active 2019-0 [place] [...]
--- OUTSIDE RECORDS SUMMARY | 2019-10-22 14:32 | XMS REPORT ---
:1935 Author Organization [facility] Care Team Providers Name Role Phone Unavailable Unavailable Unavailable Problems Condition Condition Condition Status Onset Resolution Last Treating Comments Name Details Category Date Date Treatment Clinician Date Essential Essential Diagnosis Active 2020- Mina (primary) (primary) 2-20 [place], hypertensio hypertensio PT n n 240482-1 Low back Low back Diagnosis Active 2020- Mina pain pain 2-20 [place], PT 042037-9 Unspecified Unspecified Diagnosis Active 2020- Mina abnormaliti abnormaliti 2-20 [place], es of gait es of gait PT and and 906053-3 mobility mobility 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[place], with late with late PT onset onset 455519-1 Anxiety Anxiety Diagnosis Active 2020- Mina disorder, disorder, 2-20 [place], unspecified unspecified PT 583460-0 Pain frequent Pain Mgmt Resolve 2020-2019-09-13 Trudi pain d 2-20 10:10:00 [place] 10:10: [id number] 00 Respiratory dyspnea Respirator Resolve 2019-09-13 Trudi present y d 2-20 10:10:00 [place] 10:10: [id number] 00 Sensory impaired Sensory Resolve 2019-09-13 Trudi hearing d 2-20 10:10:00 [place] 10:10: [id number] 00 Nutrition nutritional Nutrition Resolve 2019-09-13 Trudi restriction d 2-20 10:10:00 [place] s 10:10: [id number] 00 Elimination urinary Eliminatio Resolve 2019-09-13 Trudi incontinenc n d 2-20 10:10:00 [place] e 10:10: [id number] 00 Elimination recurring Eliminatio Resolve 2019-2019-09-13 Trudi UTI n d 2-20 10:10:00 [place] 10:10: [id number] 00 Neuro impaired Neuro/Emot Resolve 2019-09-13 Trudi decision-ma ion d 2-20 10:10:00 [place] felicia 10:10: [id number] 00 Neuro behavior Neuro/Emot Resolve 2019-09-13 Trudi problems ion d 2-20 10:10:00 [place] 10:10: [id number] 00 Neuro psychiatric Neuro/Emot Resolve 2019-09-13 Trudi problems ion d 2-20 10:10:00 [place] 10:10: [id number] 00 Neuro memory Neuro/Emot Resolve 2019-09-13 Trudi deficit ion d 2-20 10:10:00 [place] needing 10:10: [id number] 00 Neuro constant Neuro/Emot Resolve 2019-09-13 Trudi confusion ion d 2-20 10:10:00 [place] 10:10: [id number] 00 Activity ADL Activity Resolve 2019-09-13 Trudi assistance d 2-20 10:10:00 [place] required 10:10: [id number] 00 Activity self-care Activity Resolve 2019-09-13 Trudi deficit d 2-20 10:10:00 [place] 10:10: [id number] 00 Safety cannot be Safety Resolve 2019-09-13 Trudi left alone d 2-20 10:10:00 [place] 10:10: [id number] 00 Safety fall risk Safety Resolve 2019-09-13 Trudi factor d 2-20 10:10:00 [place] present 10:10: [id number] 00 Safety risk for Safety Resolve 2019-09-13 Trudi hospitaliza d 2-20 10:10:00 [place] tion 10:10: [id number] 00 Medication oral med Meds Resolve 2019-09-13 Trudi assistance d 2-20 10:10:00 [place] required 10:10: [id number] 00 Musculoskel transfer Musculoske Resolve 2019-09-13 Trudi etal assistance letal d 2-20 10:10:00 [place] required 10:10: [id number] 00 Musculoskel requires Musculoske Resolve 2019-09-13 Trudi etal human letal d 2-20 10:10:00 [place] assist to 10:10: [id number] leave home 00 Bed transfer PT/OT: Bed Resolve 2019-10-04 Mina Mobility/Tr deficit: Mobility/T d 2-20 09:00:00 luis Perry sit/stand ransfer 13:45: PT 00 273135-3 Bed transfer PT/OT: Bed Resolve 2019-10-04 Mina Mobility/Tr deficit: Mobility/T d 2-20 09:00:00 luis Perry standing ransfer 13:45: PT pivot 00 028985-6 Bed transfer PT/OT: Bed Resolve 2019-10-04 Mina Mobility/Tr deficit: Mobility/T d 2-20 09:00:00 luis Perry toilet/comm ransfer 13:45: PT ode 00 216301-1 Bed transfer PT/OT: Bed Resolve 2019-10-04 Mina Mobility/Tr deficit: Mobility/T d 2-20 09:00:00 luis Perry shower/tub ransfer 13:45: PT 00 243681-1 Bed knowledge/s PT/OT: Bed Resolve 2019-10-04 Mina Mobility/Tr kill Mobility/T d 2-20 09:00:00 luis Perry deficit: pt ransfer 13:45: PT 00 073791-8 Bed bed PT/OT: Bed Resolve 2019-10-04 Mina Mobility/Tr mobility Mobility/T d 2-20 09:00:00 luis Perry deficit ransfer 13:45: PT 00 628714-8 Gait/Locomo gait PT/OT: Resolve 2019-10-04 Mina tion assistive Gait/Locom d 2-20 09:00:00 sherif Perry device otion 13:45: PT present 00 762209-6 Gait/Locomo knowledge/s PT/OT: Resolve 2019-10-04 Mina tion kill Gait/Locom d 2-20 09:00:00 sherif Perry deficit: pt otion 13:45: PT 00 890181-3 Gait/Locomo knowledge/s PT/OT: Resolve 2019-10-04 Mina tion kill Gait/Locom d 2-20 09:00:00 sherif Perry deficit: cg otion 13:45: PT 00 493079-4 Gait/Locomo gait PT/OT: Resolve 2019-10-04 Mina tikarli deficit Gait/Locom d 09-13 09:00:00 sherif Perry otion 13:45: PT [id number] Safety risk for Safety Resolve 2019-10-04 Mina hospitaliza d 09-17 09:00:00 [place] 09:15: PT 446014-8 Safety fall risk Safety Resolve 2019-10-04 [place]ina White factor d 09-18 09:00:00 present 15:21: 45 Allergies, Adverse Reactions, Alerts Allergy Allergy Status Severity Reaction(s) Onset Inactive Treating Comments Name Type Date Date Clinician Unknown None Active Unknown None Unknown No Known Allergies For This Patient Medications Ordered Filled Start Stop Current Ordering Indication Dosage Frequency Signature Comments Components Medication Medication Date Date Medication? Clinician (SIG) Name Name donepezil 5 donepezil 5 2020- Yes Jander Unknown Unknown mg tablet mg tablet 09-13 ,Simran escitalopra escitalopra 2020- Yes Jander Unknown Unknown m 10 mg m 10 mg 09-13 MD,Simran tablet tablet amLODIPine amLODIPine 2020- Yes Jander Unknown Unknown 2.5 mg 2.5 mg 09-13 MD,Simran tablet tablet Bengay Bengay 2020- Yes Jander Unknown Unknown Greaseless Greaseless 09-13 MD,Simran 15 %-10 % 15 %-10 % topical topical cream cream SEROquel 25 SEROquel 25 2020- Yes Jander Unknown Unknown mg tablet mg tablet 09-13 MD,Simran cetirizine cetirizine 2020- Yes Jander Unknown Unknown 10 mg 10 mg 09-13 ,Simran capsule capsule acetaminoph acetaminoph 2020- Yes Jander Unknown Unknown en 325 mg en 325 mg 09-13 ,Simran tablet tablet cholecalcif cholecalcif 2020- Yes Jander Unknown Unknown byron byron 09-13 ,Simran (vitamin (vitamin D3) 50,000 D3) 50,000 unit unit capsule capsule d-mannose d-mannose 2020-0 2020- Yes Jander Unknown Unknown oral powder oral powder 09-13 ,Simran loperamide loperamide 2019- Yes Jander Unknown Unknown 2 mg 2 mg 09-13 ,Simran capsule capsule Centrum Centrum 2019- Yes Jander Unknown Unknown Silver 400 Silver 400 09-13 ,Simran mcg-250 mcg mcg-250 mcg chewable chewable tablet [...]
--- OUTSIDE RECORDS SUMMARY | 2019-10-22 14:32 | XMS REPORT ---
:1935 Author Organization [facility] Care Team Providers Name Role Phone Unavailable Unavailable Unavailable Problems Condition Condition Condition Status Onset Resolution Last Treating Comments Name Details Category Date Date Treatment Clinician Date Essential Essential Diagnosis Active 2020- Mina (primary) (primary) 2-20 [place], hypertensio hypertensio PT n n 325893-5 Low back Low back Diagnosis Active 2020- Mina pain pain 2-20 [place], PT 721950-4 Unspecified Unspecified Diagnosis Active 2020- Mina abnormaliti abnormaliti 2-20 [place], es of gait es of gait PT and and 654782-4 mobility mobility 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[place], with late with late PT onset onset 482879-4 Anxiety Anxiety Diagnosis Active 2020- Mina disorder, disorder, 2-20 [place], unspecified unspecified PT 536414-4 Pain frequent Pain Mgmt Resolve 2020-2019-09-13 Trudi pain d 2-20 10:10:00 [place] 10:10: [id number] 00 Respiratory dyspnea Respirator Resolve 2019-09-13 Trudi present y d 2-20 10:10:00 [place] 10:10: [id number] 00 Sensory impaired Sensory Resolve 2019-09-13 Trudi hearing d 2-20 10:10:00 [place] 10:10: [id number] 00 Nutrition nutritional Nutrition Resolve 2019-09-13 Trudi restriction d 2-20 10:10:00 [place] s 10:10: [id number] 00 Elimination urinary Eliminatio Resolve 2019-09-13 Trudi incontinenc n d 2-20 10:10:00 [place] e 10:10: [id number] 00 Elimination recurring Eliminatio Resolve 2019-2019-09-13 Trudi UTI n d 2-20 10:10:00 [place] 10:10: [id number] 00 Neuro impaired Neuro/Emot Resolve 2019-09-13 Trudi decision-ma ion d 2-20 10:10:00 [place] felicia 10:10: [id number] 00 Neuro behavior Neuro/Emot Resolve 2019-09-13 Trudi problems ion d 2-20 10:10:00 [place] 10:10: [id number] 00 Neuro psychiatric Neuro/Emot Resolve 2019-09-13 Trudi problems ion d 2-20 10:10:00 [place] 10:10: [id number] 00 Neuro memory Neuro/Emot Resolve 2019-09-13 Trudi deficit ion d 2-20 10:10:00 [place] needing 10:10: [id number] supervision 00 Neuro constant Neuro/Emot Resolve 2019-09-13 Trudi confusion ion d 2-20 10:10:00 [place] 10:10: [id number] 00 Activity ADL Activity Resolve 2019-09-13 Trudi assistance d 2-20 10:10:00 [place] required 10:10: [id number] 00 Activity self-care Activity Resolve 2019-09-13 Trudi deficit d 2-20 10:10:00 [place] 10:10: [id number] 00 Safety cannot be Safety Resolve 2019-09-13 Trudi left alone d 2-20 10:10:00 [place] 10:10: [id number] 00 Safety fall risk Safety Resolve 2019-09-13 Trudi factor d 2-20 10:10:00 [place] present 10:10: [id number] 00 Safety risk for Safety Resolve 2019-09-13 Trudi hospitaliza d 2-20 10:10:00 [place] tion 10:10: [id number] 00 Medication oral med Meds Resolve 2019-09-13 Trudi assistance d 2-20 10:10:00 [place] required 10:10: [id number] 00 Musculoskel transfer Musculoske Resolve 2019-09-13 Trudi etal assistance letal d 2-20 10:10:00 [place] required 10:10: [id number] 00 Musculoskel requires Musculoske Resolve 2019-09-13 Trudi etal human letal d 2-20 10:10:00 [place] assist to 10:10: [id number] leave home 00 Bed transfer PT/OT: Bed Active Mina Mobility/Tr deficit: Mobility/T 2-20 luis Perry sit/stand ransfer 13:45: PT 00 559360-6 Bed transfer PT/OT: Bed Active Mina Mobility/Tr deficit: Mobility/T 2-20 luis Perry standing ransfer 13:45: PT pivot 00 750796-2 Bed transfer PT/OT: Bed Active Mina Mobility/Tr deficit: Mobility/T 2-20 luis Perry toilet/comm ransfer 13:45: PT ode 00 185173-3 Bed transfer PT/OT: Bed Active Mina Mobility/Tr deficit: Mobility/T 2-20 luis Perry shower/tub ransfer 13:45: PT 00 489427-9 Bed knowledge/s PT/OT: Bed Active Imna Mobility/Tr kill Mobility/T 2-20 [place] luis deficit: pt ransfer 13:45: PT 00 612783-1 Bed bed PT/OT: Bed Active Mina Mobility/Tr mobility Mobility/T 2-20 luis Perry deficit ransfer 13:45: PT 00 299736-2 Gait/Locomo gait PT/OT: Active Mina tion assistive Gait/Locom 2-20 [place], problems device otion 13:45: PT present 00 352625-4 Gait/Locomo knowledge/s PT/OT: Active Mina tion kill Gait/Locom 2-20 [place], problems deficit: pt otion 13:45: PT 00 333749-2 Gait/Locomo knowledge/s PT/OT: Active 20200 Mina tion kill Gait/Locom 2-20 [place], problems deficit: cg otion 13:45: PT 00 114650-1 Gait/Locomo gait PT/OT: Active 2019-0 Mina tion deficit Gait/Locom 2-20 [place], problems otion 13:45: PT 00 182935-6 Safety risk for Safety Active 2019-0 Mina hospitaliza 2-24 [place], tion 09:15: PT 00 778580-2 Safety fall risk Safety Active 2019-0 [place]ina [...]
--- OUTSIDE RECORDS SUMMARY | 2019-10-22 14:32 | XMS REPORT ---
:1935 Author Organization [facility] Care Team Providers Name Role Phone Unavailable Unavailable Unavailable Problems Condition Condition Condition Status Onset Resolution Last Treating Comments Name Details Category Date Date Treatment Clinician Date Essential Essential Diagnosis Active 2020- Mina (primary) (primary) 2-20 [place], hypertensio hypertensio PT n n 799429-5 Low back Low back Diagnosis Active 2020- Mina pain pain 2-20 [place], PT 692028-3 Unspecified Unspecified Diagnosis Active 2020- Mina abnormaliti abnormaliti 2-20 [place], es of gait es of gait PT and and 261988-3 mobility mobility 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[place], with late with late PT onset onset 669454-5 Anxiety Anxiety Diagnosis Active 2020- Mina disorder, disorder, 2-20 [place], unspecified unspecified PT 645393-5 Pain frequent Pain Mgmt Resolve 2020-2019-09-13 Rtudi pain d 2-20 10:10:00 [place] 10:10: [id number] 00 Respiratory dyspnea Respirator Resolve 2019-09-13 Trudi present y d 2-20 10:10:00 Monitor 10:10: [id number] 00 Sensory impaired Sensory Resolve 2019-09-13 Trudi hearing d 2-20 10:10:00 Monitor 10:10: [id number] 00 Nutrition nutritional Nutrition Resolve 2019-09-13 Trudi restriction d 2-20 10:10:00 Monitor s 10:10: [id number] 00 Elimination urinary Eliminatio Resolve 2019-09-13 Trudi incontinenc n d 2-20 10:10:00 Monitor e 10:10: [id number] 00 Elimination recurring Eliminatio Resolve 2019-2019-09-13 Trudi UTI n d 2-20 10:10:00 Monitor 10:10: [id number] 00 Neuro impaired Neuro/Emot Resolve 2019-09-13 Trudi decision-ma ion d 2-20 10:10:00 Monitor felicia 10:10: [id number] 00 Neuro behavior Neuro/Emot Resolve 2019-09-13 Trudi problems ion d 2-20 10:10:00 Monitor 10:10: [id number] 00 Neuro psychiatric Neuro/Emot Resolve 2019-09-13 Trudi problems ion d 2-20 10:10:00 Monitor 10:10: [id number] 00 Neuro memory Neuro/Emot Resolve 2019-09-13 Trudi deficit ion d 2-20 10:10:00 Monitor needing 10:10: [id number] 00 Neuro constant Neuro/Emot Resolve 2019-09-13 Trudi confusion ion d 2-20 10:10:00 Monitor 10:10: [id number] 00 Activity ADL Activity Resolve 2019-09-13 Trudi assistance d 2-20 10:10:00 Monitor required 10:10: [id number] 00 Activity self-care Activity Resolve 2019-09-13 Trudi deficit d 2-20 10:10:00 Monitor 10:10: [id number] 00 Safety cannot be Safety Resolve 2019-09-13 Trudi left alone d 2-20 10:10:00 Monitor 10:10: [id number] 00 Safety fall risk Safety Resolve 2019-09-13 Trudi factor d 2-20 10:10:00 Monitor present 10:10: [id number] 00 Safety risk for Safety Resolve 2019-09-13 Trudi hospitaliza d 2-20 10:10:00 Monitor tion 10:10: [id number] 00 Medication oral med Meds Resolve 2019-09-13 Trudi assistance d 2-20 10:10:00 Monitor required 10:10: [id number] 00 Musculoskel transfer Musculoske Resolve 2019-09-13 Trudi etal assistance letal d 2-20 10:10:00 Monitor required 10:10: [id number] 00 Musculoskel requires Musculoske Resolve 2019-09-13 Trudi etal human letal d 2-20 10:10:00 Monitor assist to 10:10: [id number] leave home 00 Bed transfer PT/OT: Bed Active Mina Mobility/Tr deficit: Mobility/T 2-20 luis Perry sit/stand ransfer 13:45: PT 00 949632-4 Bed transfer PT/OT: Bed Active Mina Mobility/Tr deficit: Mobility/T 2-20 luis Perry standing ransfer 13:45: PT pivot 00 449653-5 Bed transfer PT/OT: Bed Active Mina Mobility/Tr deficit: Mobility/T 2-20 luis Perry toilet/comm ransfer 13:45: PT ode 00 587909-3 Bed transfer PT/OT: Bed Active Mina Mobility/Tr deficit: Mobility/T 2-20 lusi Perry shower/tub ransfer 13:45: PT 00 133779-6 Bed knowledge/s PT/OT: Bed Active Mina Mobility/Tr kill Mobility/T 2-20 [place] luis deficit: pt ransfer 13:45: PT 00 013463-1 Bed bed PT/OT: Bed Active Mina Mobility/Tr mobility Mobility/T 2-20 luis Perry deficit ransfer 13:45: PT 00 580668-5 Gait/Locomo gait PT/OT: Active Mina tion assistive Gait/Locom 2-20 [place], problems device otion 13:45: PT present 00 022203-1 Gait/Locomo knowledge/s PT/OT: Active Mina tion kill Gait/Locom 2-20 [place], problems deficit: pt otion 13:45: PT 00 235657-5 Gait/Locomo knowledge/s PT/OT: Active 20200 Mina tion kill Gait/Locom 2-20 [place], problems deficit: cg otion 13:45: PT 00 065986-6 Gait/Locomo gait PT/OT: Active 2019-0 Mina tion deficit Gait/Locom 2-20 [place], problems otion 13:45: PT 00 128987-1 Safety risk for Safety Active 2019-0 Mina hospitaliza 2-24 [place], tion 09:15: PT 00 416795-6 Safety fall risk Safety Active 2019-0 [place]ina [...]
--- OUTSIDE RECORDS SUMMARY | 2019-10-22 14:32 | XMS REPORT ---
:1935 Author Organization [facility] Care Team Providers Name Role Phone Unavailable Unavailable Unavailable Problems Condition Condition Condition Status Onset Resolution Last Treating Comments Name Details Category Date Date Treatment Clinician Date Essential Essential Diagnosis Active 2020- Mina (primary) (primary) 2-20 [place], hypertensio hypertensio PT n n 575934-6 Low back Low back Diagnosis Active 2020- Mina pain pain 2-20 [place], [place] 303889-5 Unspecified Unspecified Diagnosis Active 2020- Mnia abnormaliti abnormaliti 2-20 [place], es of gait es of gait PT and and 047208-5 mobility mobility 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[place], with late with late PT onset onset 751252-5 Anxiety Anxiety Diagnosis Active 2020- Mina disorder, disorder, 2-20 [place], unspecified unspecified PT 798929-0 Pain frequent Pain Mgmt Resolve 2020-2019-09-13 Trudi pain d 2-20 10:10:00 [place] 10:10: [id number] 00 Respiratory dyspnea Respirator Resolve 2019-09-13 Trudi present y d 2-20 10:10:00 [place] 10:10: [id number] 00 Sensory impaired Sensory Resolve 2019-09-13 Trudi hearing d 2-20 10:10:00 [place] 10:10: [id number] 00 Nutrition nutritional Nutrition Resolve 2019-09-13 Trudi restriction d 2-20 10:10:00 [place] s 10:10: [id number] 00 Elimination urinary Eliminatio Resolve 2019-09-13 Trudi incontinenc n d 2-20 10:10:00 [place] e 10:10: [id number] 00 Elimination recurring Eliminatio Resolve 2019-2019-09-13 Trudi UTI n d 2-20 10:10:00 [place] 10:10: [id number] 00 Neuro impaired Neuro/Emot Resolve 2019-09-13 Trudi decision-ma ion d 2-20 10:10:00 [place] felicia 10:10: [id number] 00 Neuro behavior Neuro/Emot Resolve 2019-09-13 Trudi problems ion d 2-20 10:10:00 [place] 10:10: [id number] 00 Neuro psychiatric Neuro/Emot Resolve 2019-09-13 Trudi problems ion d 2-20 10:10:00 [place] 10:10: [id number] 00 Neuro memory Neuro/Emot Resolve 2019-09-13 Trudi deficit ion d 2-20 10:10:00 [place] needing 10:10: [id number] 00 Neuro constant Neuro/Emot Resolve 2019-09-13 Trudi confusion ion d 2-20 10:10:00 [place] 10:10: [id number] 00 Activity ADL Activity Resolve 2019-09-13 Trudi assistance d 2-20 10:10:00 [place] required 10:10: [id number] 00 Activity self-care Activity Resolve 2019-09-13 Trudi deficit d 2-20 10:10:00 [place] 10:10: [id number] 00 Safety cannot be Safety Resolve 2019-09-13 Trudi left alone d 2-20 10:10:00 [place] 10:10: [id number] 00 Safety fall risk Safety Resolve 2019-09-13 Trudi factor d 2-20 10:10:00 [place] present 10:10: [id number] 00 Safety risk for Safety Resolve 2019-09-13 Trudi hospitaliza d 2-20 10:10:00 [place] tion 10:10: [id number] 00 Medication oral med Meds Resolve 2019-09-13 Trudi assistance d 2-20 10:10:00 [place] required 10:10: [id number] 00 Musculoskel transfer Musculoske Resolve 2019-09-13 Trudi etal assistance letal d 2-20 10:10:00 [place] required 10:10: [id number] 00 Musculoskel requires Musculoske Resolve 2019-09-13 Trudi etal human letal d 2-20 10:10:00 [place] assist to 10:10: [id number] leave home 00 Bed transfer PT/OT: Bed Active Mina Mobility/Tr deficit: Mobility/T 2-20 luis Perry sit/stand ransfer 13:45: PT 00 982647-4 Bed transfer PT/OT: Bed Active Mina Mobility/Tr deficit: Mobility/T 2-20 luis Perry standing ransfer 13:45: PT pivot 00 413926-0 Bed transfer PT/OT: Bed Active Mina Mobility/Tr deficit: Mobility/T 2-20 luis Perry toilet/comm ransfer 13:45: PT ode 00 612046-1 Bed transfer PT/OT: Bed Active Mina Mobility/Tr deficit: Mobility/T 2-20 luis Perry shower/tub ransfer 13:45: PT 00 628563-6 Bed knowledge/s PT/OT: Bed Active Mina Mobility/Tr kill Mobility/T 2-20 [place] luis deficit: pt ransfer 13:45: PT 00 456254-9 Bed bed PT/OT: Bed Active Mina Mobility/Tr mobility Mobility/T 2-20 luis Perry deficit ransfer 13:45: PT 00 695005-6 Gait/Locomo gait PT/OT: Active Mina tion assistive Gait/Locom 2-20 [place], problems device otion 13:45: PT present 00 551803-4 Gait/Locomo knowledge/s PT/OT: Active Mina tion kill Gait/Locom 2-20 [place], problems deficit: pt otion 13:45: PT 00 406254-7 Gait/Locomo knowledge/s PT/OT: Active 20200 Mina tion kill Gait/Locom 2-20 [place], problems deficit: cg otion 13:45: PT 00 146211-0 Gait/Locomo gait PT/OT: Active 2019-0 Mina tion deficit Gait/Locom 2-20 [place], problems otion 13:45: PT 00 691094-6 Safety risk for Safety Active 2019-0 Mina hospitaliza 2-24 [place], tion 09:15: PT 00 400379-1 Safety fall risk Safety Active 2019-0 [place] [...] Observation Time Observation Value Comments SYSTOLIC mm[Hg] 2019-09-24 18:10:40 142 mm[Hg] mm[Hg] Method: Sit SYSTOLIC mm[Hg] 2019-09-13 18:10:29 120 mm[Hg] mm[Hg] Method: Stand DIASTOLIC mm[Hg] 2019-09-24 18:10:40 82 mm[Hg] mm[Hg] Method: Sit DIASTOLIC mm[Hg] 2019-09-13 18:10:29 89 mm[Hg] mm[Hg] Method: Stand PULSE 2019-09-24 18:10:40 78 /min /min RESP RATE 2019-09-24 18:10:40 16 /min /min TEMP 2019-09-24 18:10:40 97 [degF] Procedures This patient has no known procedures. Results This patient has no known results.
--- OUTSIDE RECORDS SUMMARY | 2019-10-22 14:32 | XMS REPORT ---
:1935 Author Organization [facility] Care Team Providers Name Role Phone Unavailable Unavailable Unavailable Problems Condition Condition Condition Status Onset Resolution Last Treating Comments Name Details Category Date Date Treatment Clinician Date Essential Essential Diagnosis Active 2020- Mina (primary) (primary) 2-20 [place], hypertensio hypertensio PT n n 324416-2 Low back Low back Diagnosis Active 2020- Mina pain pain 2-20 [place], PT 006477-8 Unspecified Unspecified Diagnosis Active 2020- Mina abnormaliti abnormaliti 2-20 [place], es of gait es of gait PT and and 460035-7 mobility mobility 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[place], with late with late PT onset onset 381494-9 Anxiety Anxiety Diagnosis Active 2020- Mina disorder, disorder, 2-20 [place], unspecified unspecified PT 400404-9 Pain frequent Pain Mgmt Resolve 2020-2019-09-13 Trudi pain d 2-20 10:10:00 [place] 10:10: [id number] 00 Respiratory dyspnea Respirator Resolve 2019-09-13 Trudi present y d 2-20 10:10:00 [place] 10:10: [id number] 00 Sensory impaired Sensory Resolve 2019-09-13 Trudi hearing d 2-20 10:10:00 [place] 10:10: [id number] 00 Nutrition nutritional Nutrition Resolve 2019-09-13 Trudi restriction d 2-20 10:10:00 [place] s 10:10: [id number] 00 Elimination urinary Eliminatio Resolve 2019-09-13 Trudi incontinenc n d 2-20 10:10:00 [place] e 10:10: [id number] 00 Elimination recurring Eliminatio Resolve 2019-2019-09-13 Trudi UTI n d 2-20 10:10:00 [place] 10:10: [id number] 00 Neuro impaired Neuro/Emot Resolve 2019-09-13 Trudi decision-ma ion d 2-20 10:10:00 [place] felicia 10:10: [id number] 00 Neuro behavior Neuro/Emot Resolve 2019-09-13 Trudi problems ion d 2-20 10:10:00 [place] 10:10: [id number] 00 Neuro psychiatric Neuro/Emot Resolve 2019-09-13 Trudi problems ion d 2-20 10:10:00 [place] 10:10: [id number] 00 Neuro memory Neuro/Emot Resolve 2019-09-13 Trudi deficit ion d 2-20 10:10:00 [place] needing 10:10: [id number] supervision 00 Neuro constant Neuro/Emot Resolve 2019-09-13 Trudi confusion ion d 2-20 10:10:00 [place] 10:10: [id number] 00 Activity ADL Activity Resolve 2019-09-13 Trudi assistance d 2-20 10:10:00 [place] required 10:10: [id number] 00 Activity self-care Activity Resolve 2019-09-13 Trudi deficit d 2-20 10:10:00 [place] 10:10: [id number] 00 Safety cannot be Safety Resolve 2019-09-13 Trudi left alone d 2-20 10:10:00 [place] 10:10: [id number] 00 Safety fall risk Safety Resolve 2019-09-13 Trudi factor d 2-20 10:10:00 [place] present 10:10: [id number] 00 Safety risk for Safety Resolve 2019-09-13 Trudi hospitaliza d 2-20 10:10:00 [place] tion 10:10: [id number] 00 Medication oral med Meds Resolve 2019-09-13 Trudi assistance d 2-20 10:10:00 [place] required 10:10: [id number] 00 Musculoskel transfer Musculoske Resolve 2019-09-13 Trudi etal assistance letal d 2-20 10:10:00 [place] required 10:10: [id number] 00 Musculoskel requires Musculoske Resolve 2019-09-13 Trudi etal human letal d 2-20 10:10:00 [place] assist to 10:10: [id number] leave home 00 Bed transfer PT/OT: Bed Resolve 2019-10-04 Mina Mobility/Tr deficit: Mobility/T d 2-20 09:00:00 luis Perry sit/stand ransfer 13:45: PT 00 221088-2 Bed transfer PT/OT: Bed Resolve 2019-10-04 Mina Mobility/Tr deficit: Mobility/T d 2-20 09:00:00 luis Perry standing ransfer 13:45: PT pivot 00 085052-9 Bed transfer PT/OT: Bed Resolve 2019-10-04 Mina Mobility/Tr deficit: Mobility/T d 2-20 09:00:00 luis Perry toilet/comm ransfer 13:45: PT ode 00 986875-1 Bed transfer PT/OT: Bed Resolve 2019-10-04 Mina Mobility/Tr deficit: Mobility/T d 2-20 09:00:00 luis Perry shower/tub ransfer 13:45: PT 00 217047-2 Bed knowledge/s PT/OT: Bed Resolve 2019-10-04 Mina Mobility/Tr kill Mobility/T d 2-20 09:00:00 luis Perry deficit: pt ransfer 13:45: PT 00 825122-1 Bed bed PT/OT: Bed Resolve 2019-10-04 Mina Mobility/Tr mobility Mobility/T d 2-20 09:00:00 luis Perry deficit ransfer 13:45: PT 00 016078-9 Gait/Locomo gait PT/OT: Resolve 2019-10-04 Mina tion assistive Gait/Locom d 2-20 09:00:00 sherif Perry device otion 13:45: PT present 00 998448-1 Gait/Locomo knowledge/s PT/OT: Resolve 2019-10-04 Mina tion kill Gait/Locom d 2-20 09:00:00 sherif Perry deficit: pt otion 13:45: PT 00 918808-2 Gait/Locomo knowledge/s PT/OT: Resolve 2019-10-04 Mina tion kill Gait/Locom d 2-20 09:00:00 sherif Perry deficit: cg otion 13:45: PT 00 101748-7 Gait/Locomo gait PT/OT: Resolve 2019-10-04 Mina tikarli deficit Gait/Locom d 09-13 09:00:00 sherif Perry otion 13:45: PT 964645-4 Safety risk for Safety Resolve 2019-10-04 Mina hospitaliza d 09-17 09:00:00 [place] 09:15: PT 327125-7 Safety fall risk Safety Resolve 2019-10-04 [place] [...]
--- OUTSIDE RECORDS SUMMARY | 2019-10-22 14:32 | XMS REPORT ---
:1935 Author Organization [facility] Care Team Providers Name Role Phone Unavailable Unavailable Unavailable Problems Condition Condition Condition Status Onset Resolution Last Treating Comments Name Details Category Date Date Treatment Clinician Date Essential Essential Diagnosis Active 2020- Mina (primary) (primary) 2-20 [place], hypertensio hypertensio PT n n 592293-8 Low back Low back Diagnosis Active 2020- Mina pain pain 2-20 [place], PT 088209-5 Unspecified Unspecified Diagnosis Active 2020- Mina abnormaliti abnormaliti 2-20 [place], es of gait es of gait PT and and 497787-4 mobility mobility 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[place], with late with late PT onset onset 158682-9 Anxiety Anxiety Diagnosis Active 2020- Mina disorder, disorder, 2-20 [place], unspecified unspecified PT 057538-0 Pain frequent Pain Mgmt Resolve 2020-2019-09-13 Trudi pain d 2-20 10:10:00 [place] 10:10: [id number] 00 Respiratory dyspnea Respirator Resolve 2019-09-13 Trudi present y d 2-20 10:10:00 [place] 10:10: [id number] 00 Sensory impaired Sensory Resolve 2019-09-13 Trudi hearing d 2-20 10:10:00 [place] 10:10: [id number] 00 Nutrition nutritional Nutrition Resolve 2019-09-13 Trudi restriction d 2-20 10:10:00 [place] s 10:10: [id number] 00 Elimination urinary Eliminatio Resolve 2019-09-13 Trudi incontinenc n d 2-20 10:10:00 [place] e 10:10: [id number] 00 Elimination recurring Eliminatio Resolve 2019-2019-09-13 Trudi UTI n d 2-20 10:10:00 [place] 10:10: [id number] 00 Neuro impaired Neuro/Emot Resolve 2019-09-13 Trudi decision-ma ion d 2-20 10:10:00 [place] felicia 10:10: [id number] 00 Neuro behavior Neuro/Emot Resolve 2019-09-13 Trudi problems ion d 2-20 10:10:00 [place] 10:10: [id number] 00 Neuro psychiatric Neuro/Emot Resolve 2019-09-13 Trudi problems ion d 2-20 10:10:00 [place] 10:10: [id number] 00 Neuro memory Neuro/Emot Resolve 2019-09-13 Trudi deficit ion d 2-20 10:10:00 [place] needing 10:10: [id number] supervision 00 Neuro constant Neuro/Emot Resolve 2019-09-13 Trudi confusion ion d 2-20 10:10:00 [place] 10:10: [id number] 00 Activity ADL Activity Resolve 2019-09-13 Trudi assistance d 2-20 10:10:00 [place] required 10:10: [id number] 00 Activity self-care Activity Resolve 2019-09-13 Trudi deficit d 2-20 10:10:00 [place] 10:10: [id number] 00 Safety cannot be Safety Resolve 2019-09-13 Trudi left alone d 2-20 10:10:00 [place] 10:10: [id number] 00 Safety fall risk Safety Resolve 2019-09-13 Trudi factor d 2-20 10:10:00 [place] present 10:10: [id number] 00 Safety risk for Safety Resolve 2019-09-13 Trudi hospitaliza d 2-20 10:10:00 [place] tion 10:10: [id number] 00 Medication oral med Meds Resolve 2019-09-13 Trudi assistance d 2-20 10:10:00 [place] required 10:10: [id number] 00 Musculoskel transfer Musculoske Resolve 2019-09-13 Trudi etal assistance letal d 2-20 10:10:00 [place] required 10:10: [id number] 00 Musculoskel requires Musculoske Resolve 2019-09-13 Trudi etal human letal d 2-20 10:10:00 [place] assist to 10:10: [id number] leave home 00 Bed transfer PT/OT: Bed Resolve 2019-10-04 Mina Mobility/Tr deficit: Mobility/T d 2-20 09:00:00 luis Perry sit/stand ransfer 13:45: PT 00 946669-5 Bed transfer PT/OT: Bed Resolve 2019-10-04 Mina Mobility/Tr deficit: Mobility/T d 2-20 09:00:00 luis Perry standing ransfer 13:45: PT pivot 00 772436-4 Bed transfer PT/OT: Bed Resolve 2019-10-04 Mina Mobility/Tr deficit: Mobility/T d 2-20 09:00:00 luis Perry toilet/comm ransfer 13:45: PT ode 00 808568-4 Bed transfer PT/OT: Bed Resolve 2019-10-04 Mina Mobility/Tr deficit: Mobility/T d 2-20 09:00:00 luis Perry shower/tub ransfer 13:45: PT 00 650517-1 Bed knowledge/s PT/OT: Bed Resolve 2019-10-04 Mina Mobility/Tr kill Mobility/T d 2-20 09:00:00 luis Perry deficit: pt ransfer 13:45: PT 00 441702-5 Bed bed PT/OT: Bed Resolve 2019-10-04 Mina Mobility/Tr mobility Mobility/T d 2-20 09:00:00 luis Perry deficit ransfer 13:45: PT 00 596494-7 Gait/Locomo gait PT/OT: Resolve 2019-10-04 Mina tion assistive Gait/Locom d 2-20 09:00:00 sherif Perry device otion 13:45: PT present 00 557098-0 Gait/Locomo knowledge/s PT/OT: Resolve 2019-10-04 Mina tion kill Gait/Locom d 2-20 09:00:00 sherif Perry deficit: pt otion 13:45: PT 00 789062-4 Gait/Locomo knowledge/s PT/OT: Resolve 2019-10-04 Mina tion kill Gait/Locom d 2-20 09:00:00 sherif Perry deficit: cg otion 13:45: PT 00 359412-7 Gait/Locomo gait PT/OT: Resolve 2019-10-04 Mina tikarli deficit Gait/Locom d 09-13 09:00:00 sherif Perry otion 13:45: PT 638259-6 Safety risk for Safety Resolve 2019-10-04 Mina hospitaliza d 09-17 09:00:00 [place] 09:15: PT 457319-5 Safety fall risk Safety Resolve 2019-10-04 [place] [...]
--- OUTSIDE RECORDS SUMMARY | 2019-10-22 14:32 | XMS REPORT ---
:1935 Author Organization [facility] Care Team Providers Name Role Phone Unavailable Unavailable Unavailable Problems Condition Condition Condition Status Onset Resolution Last Treating Comments Name Details Category Date Date Treatment Clinician Date Essential Essential Diagnosis Active 2020- Mina (primary) (primary) 2-20 [place], hypertensio hypertensio PT n n 003945-4 Low back Low back Diagnosis Active 2020- Imna pain pain 2-20 [place], [place] 484896-0 Unspecified Unspecified Diagnosis Active 2020- Mina abnormaliti abnormaliti 2-20 [place], es of gait es of gait PT and and 318846-8 mobility mobility 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[place], with late with late PT onset onset 104170-9 Anxiety Anxiety Diagnosis Active 2020- Mina disorder, disorder, 2-20 [place], unspecified unspecified PT 997753-3 Pain frequent Pain Mgmt Resolve 2020-2019-09-13 Trudi pain d 2-20 10:10:00 [place] 10:10: [id number] 00 Respiratory dyspnea Respirator Resolve 2019-09-13 Trudi present y d 2-20 10:10:00 [place] 10:10: [id number] 00 Sensory impaired Sensory Resolve 2019-09-13 Trudi hearing d 2-20 10:10:00 [place] 10:10: [id number] 00 Nutrition nutritional Nutrition Resolve 2019-09-13 Trudi restriction d 2-20 10:10:00 [place] s 10:10: [id number] 00 Elimination urinary Eliminatio Resolve 2019-09-13 Trudi incontinenc n d 2-20 10:10:00 [place] e 10:10: [id number] 00 Elimination recurring Eliminatio Resolve 2019-2019-09-13 Trudi UTI n d 2-20 10:10:00 [place] 10:10: [id number] 00 Neuro impaired Neuro/Emot Resolve 2019-09-13 Trudi decision-ma ion d 2-20 10:10:00 [place] felicia 10:10: [id number] 00 Neuro behavior Neuro/Emot Resolve 2019-09-13 Trudi problems ion d 2-20 10:10:00 [place] 10:10: [id number] 00 Neuro psychiatric Neuro/Emot Resolve 2019-09-13 Trudi problems ion d 2-20 10:10:00 [place] 10:10: [id number] 00 Neuro memory Neuro/Emot Resolve 2019-09-13 Trudi deficit ion d 2-20 10:10:00 [place] needing 10:10: [id number] supervision 00 Neuro constant Neuro/Emot Resolve 2019-09-13 Trudi confusion ion d 2-20 10:10:00 [place] 10:10: [id number] 00 Activity ADL Activity Resolve 2019-09-13 Trudi assistance d 2-20 10:10:00 [place] required 10:10: [id number] 00 Activity self-care Activity Resolve 2019-09-13 Trudi deficit d 2-20 10:10:00 [place] 10:10: [id number] 00 Safety cannot be Safety Resolve 2019-09-13 Trudi left alone d 2-20 10:10:00 [place] 10:10: [id number] 00 Safety fall risk Safety Resolve 2019-09-13 Trudi factor d 2-20 10:10:00 [place] present 10:10: [id number] 00 Safety risk for Safety Resolve 2019-09-13 Trudi hospitaliza d 2-20 10:10:00 [place] tion 10:10: [id number] 00 Medication oral med Meds Resolve 2019-09-13 Trudi assistance d 2-20 10:10:00 [place] required 10:10: [id number] 00 Musculoskel transfer Musculoske Resolve 2019-09-13 Trudi etal assistance letal d 2-20 10:10:00 [place] required 10:10: [id number] 00 Musculoskel requires Musculoske Resolve 2019-09-13 Trudi etal human letal d 2-20 10:10:00 [place] assist to 10:10: [id number] leave home 00 Bed transfer PT/OT: Bed Active Mina Mobility/Tr deficit: Mobility/T 2-20 luis Perry sit/stand ransfer 13:45: PT 00 624748-5 Bed transfer PT/OT: Bed Active Mina Mobility/Tr deficit: Mobility/T 2-20 luis Perry standing ransfer 13:45: PT pivot 00 939468-1 Bed transfer PT/OT: Bed Active Mina Mobility/Tr deficit: Mobility/T 2-20 luis Perry toilet/comm ransfer 13:45: PT ode 00 770378-4 Bed transfer PT/OT: Bed Active Mina Mobility/Tr deficit: Mobility/T 2-20 luis Perry shower/tub ransfer 13:45: PT 00 230114-2 Bed knowledge/s PT/OT: Bed Active Mina Mobility/Tr kill Mobility/T 2-20 [place] luis deficit: pt ransfer 13:45: PT 00 981009-6 Bed bed PT/OT: Bed Active Mina Mobility/Tr mobility Mobility/T 2-20 luis Perry deficit ransfer 13:45: PT 00 784799-9 Gait/Locomo gait PT/OT: Active Mina tion assistive Gait/Locom 2-20 [place], problems device otion 13:45: PT present 00 422241-0 Gait/Locomo knowledge/s PT/OT: Active Mina tion kill Gait/Locom 2-20 [place], problems deficit: pt otion 13:45: PT 00 257682-9 Gait/Locomo knowledge/s PT/OT: Active 20200 Mina tion kill Gait/Locom 2-20 [place], problems deficit: cg otion 13:45: PT 00 754589-0 Gait/Locomo gait PT/OT: Active 2019-0 Mina tion deficit Gait/Locom 2-20 [place], problems otion 13:45: PT 00 256664-1 Safety risk for Safety Active 2019-0 Mina hospitaliza 2-24 [place], tion 09:15: PT 00 748369-5 Safety fall risk Safety Active 2019-0 [place] [...]
--- OUTSIDE RECORDS SUMMARY | 2019-10-22 14:32 | XMS REPORT ---
:1935 Author Organization [facility] Care Team Providers Name Role Phone Unavailable Unavailable Unavailable Problems Condition Condition Condition Status Onset Resolution Last Treating Comments Name Details Category Date Date Treatment Clinician Date Essential Essential Diagnosis Active 2020- Mina (primary) (primary) 2-20 [place], hypertensio hypertensio PT n n 239092-1 Low back Low back Diagnosis Active 2020- Mina pain pain 2-20 [place], PT 983596-9 Unspecified Unspecified Diagnosis Active 2020- Mina abnormaliti abnormaliti 2-20 [place], es of gait es of gait PT and and 751856-1 mobility mobility 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[place], with late with late PT onset onset 899241-2 Anxiety Anxiety Diagnosis Active 2020- Mina disorder, disorder, 2-20 [place], unspecified unspecified PT 539563-1 Pain frequent Pain Mgmt Resolve 2020-2019-09-13 Trudi pain d 2-20 10:10:00 [place] 10:10: [id number] 00 Respiratory dyspnea Respirator Resolve 2019-09-13 Trudi present y d 2-20 10:10:00 [place] 10:10: [id number] 00 Sensory impaired Sensory Resolve 2019-09-13 Trudi hearing d 2-20 10:10:00 [place] 10:10: [id number] 00 Nutrition nutritional Nutrition Resolve 2019-09-13 Trudi restriction d 2-20 10:10:00 [place] s 10:10: [id number] 00 Elimination urinary Eliminatio Resolve 2019-09-13 Trudi incontinenc n d 2-20 10:10:00 [place] e 10:10: [id number] 00 Elimination recurring Eliminatio Resolve 2019-2019-09-13 Trudi UTI n d 2-20 10:10:00 [place] 10:10: [id number] 00 Neuro impaired Neuro/Emot Resolve 2019-09-13 Trudi decision-ma ion d 2-20 10:10:00 [place] felicia 10:10: [id number] 00 Neuro behavior Neuro/Emot Resolve 2019-09-13 Trudi problems ion d 2-20 10:10:00 [place] 10:10: [id number] 00 Neuro psychiatric Neuro/Emot Resolve 2019-09-13 Trudi problems ion d 2-20 10:10:00 [place] 10:10: [id number] 00 Neuro memory Neuro/Emot Resolve 2019-09-13 Trudi deficit ion d 2-20 10:10:00 [place] needing 10:10: [id number] supervision 00 Neuro constant Neuro/Emot Resolve 2019-09-13 Trudi confusion ion d 2-20 10:10:00 [place] 10:10: [id number] 00 Activity ADL Activity Resolve 2019-09-13 Trudi assistance d 2-20 10:10:00 [place] required 10:10: [id number] 00 Activity self-care Activity Resolve 2019-09-13 Trudi deficit d 2-20 10:10:00 [place] 10:10: [id number] 00 Safety cannot be Safety Resolve 2019-09-13 Trudi left alone d 2-20 10:10:00 [place] 10:10: [id number] 00 Safety fall risk Safety Resolve 2019-09-13 Trudi factor d 2-20 10:10:00 [place] present 10:10: [id number] 00 Safety risk for Safety Resolve 2019-09-13 Trudi hospitaliza d 2-20 10:10:00 [place] tion 10:10: [id number] 00 Medication oral med Meds Resolve 2019-09-13 Trudi assistance d 2-20 10:10:00 [place] required 10:10: [id number] 00 Musculoskel transfer Musculoske Resolve 2019-09-13 Trudi etal assistance letal d 2-20 10:10:00 [place] required 10:10: [id number] 00 Musculoskel requires Musculoske Resolve 2019-09-13 Trudi etal human letal d 2-20 10:10:00 [place] assist to 10:10: [id number] leave home 00 Bed transfer PT/OT: Bed Active Mina Mobility/Tr deficit: Mobility/T 2-20 luis Perry sit/stand ransfer 13:45: PT 00 952136-1 Bed transfer PT/OT: Bed Active Mina Mobility/Tr deficit: Mobility/T 2-20 luis Perry standing ransfer 13:45: PT pivot 00 081731-4 Bed transfer PT/OT: Bed Active Mina Mobility/Tr deficit: Mobility/T 2-20 luis Perry toilet/comm ransfer 13:45: PT ode 00 344861-2 Bed transfer PT/OT: Bed Active Mina Mobility/Tr deficit: Mobility/T 2-20 luis Perry shower/tub ransfer 13:45: PT 00 955119-2 Bed knowledge/s PT/OT: Bed Active Mina Mobility/Tr kill Mobility/T 2-20 [place] luis deficit: pt ransfer 13:45: PT 00 448748-7 Bed bed PT/OT: Bed Active Mina Mobility/Tr mobility Mobility/T 2-20 luis Perry deficit ransfer 13:45: PT 00 560507-3 Gait/Locomo gait PT/OT: Active Mina tion assistive Gait/Locom 2-20 [place], problems device otion 13:45: PT present 00 593089-6 Gait/Locomo knowledge/s PT/OT: Active Mina tion kill Gait/Locom 2-20 [place], problems deficit: pt otion 13:45: PT 00 060305-2 Gait/Locomo knowledge/s PT/OT: Active 20200 Mina tion kill Gait/Locom 2-20 [place], problems deficit: cg otion 13:45: PT 00 317525-2 Gait/Locomo gait PT/OT: Active 2019-0 Mina tion deficit Gait/Locom 2-20 [place], problems otion 13:45: PT 00 718244-4 Safety risk for Safety Active 2019-0 Mina hospitaliza 2-24 [place], tion 09:15: PT 00 903419-6 Safety fall risk Safety Active 2019-0 [place] [...]
--- OUTSIDE RECORDS SUMMARY | 2019-10-22 14:32 | XMS REPORT ---
:1935 Author Organization [facility] Care Team Providers Name Role Phone Unavailable Unavailable Unavailable Problems Condition Condition Condition Status Onset Resolution Last Treating Comments Name Details Category Date Date Treatment Clinician Date Essential Essential Diagnosis Active 2020- Mina (primary) (primary) 2-20 [place], hypertensio hypertensio PT n n 472351-0 Low back Low back Diagnosis Active 2020- Mina pain pain 2-20 [place], [place] 008801-6 Unspecified Unspecified Diagnosis Active 2020- Mina abnormaliti abnormaliti 2-20 [place], es of gait es of gait PT and and 386303-5 mobility mobility 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[place], with late with late PT onset onset 320864-9 Anxiety Anxiety Diagnosis Active 2020- Mina disorder, disorder, 2-20 [place], unspecified unspecified PT 514957-2 Pain frequent Pain Mgmt Resolve 2020-2019-09-13 Trudi pain d 2-20 10:10:00 [place] 10:10: [id number] 00 Respiratory dyspnea Respirator Resolve 2019-09-13 Trudi present y d 2-20 10:10:00 [place] 10:10: [id number] 00 Sensory impaired Sensory Resolve 2019-09-13 Trudi hearing d 2-20 10:10:00 [place] 10:10: [id number] 00 Nutrition nutritional Nutrition Resolve 2019-09-13 Trudi restriction d 2-20 10:10:00 [place] s 10:10: [id number] 00 Elimination urinary Eliminatio Resolve 2019-09-13 Trudi incontinenc n d 2-20 10:10:00 [place] e 10:10: [id number] 00 Elimination recurring Eliminatio Resolve 2019-2019-09-13 Trudi UTI n d 2-20 10:10:00 [place] 10:10: [id number] 00 Neuro impaired Neuro/Emot Resolve 2019-09-13 Trudi decision-ma ion d 2-20 10:10:00 [place] felicia 10:10: [id number] 00 Neuro behavior Neuro/Emot Resolve 2019-09-13 Trudi problems ion d 2-20 10:10:00 [place] 10:10: [id number] 00 Neuro psychiatric Neuro/Emot Resolve 2019-09-13 Trudi problems ion d 2-20 10:10:00 [place] 10:10: [id number] 00 Neuro memory Neuro/Emot Resolve 2019-09-13 Trudi deficit ion d 2-20 10:10:00 [place] needing 10:10: [id number] 00 Neuro constant Neuro/Emot Resolve 2019-09-13 Trudi confusion ion d 2-20 10:10:00 [place] 10:10: [id number] 00 Activity ADL Activity Resolve 2019-09-13 Trudi assistance d 2-20 10:10:00 [place] required 10:10: [id number] 00 Activity self-care Activity Resolve 2019-09-13 Trudi deficit d 2-20 10:10:00 [place] 10:10: [id number] 00 Safety cannot be Safety Resolve 2019-09-13 Trudi left alone d 2-20 10:10:00 [place] 10:10: [id number] 00 Safety fall risk Safety Resolve 2019-09-13 Trudi factor d 2-20 10:10:00 [place] present 10:10: [id number] 00 Safety risk for Safety Resolve 2019-09-13 Trudi hospitaliza d 2-20 10:10:00 [place] tion 10:10: [id number] 00 Medication oral med Meds Resolve 2019-09-13 Trudi assistance d 2-20 10:10:00 [place] required 10:10: [id number] 00 Musculoskel transfer Musculoske Resolve 2019-09-13 Trudi etal assistance letal d 2-20 10:10:00 [place] required 10:10: [id number] 00 Musculoskel requires Musculoske Resolve 2019-09-13 Trudi etal human letal d 2-20 10:10:00 [place] assist to 10:10: [id number] leave home 00 Bed transfer PT/OT: Bed Active Mina Mobility/Tr deficit: Mobility/T 2-20 luis Perry sit/stand ransfer 13:45: PT 00 643617-7 Bed transfer PT/OT: Bed Active Mina Mobility/Tr deficit: Mobility/T 2-20 luis Perry standing ransfer 13:45: PT pivot 00 503282-0 Bed transfer PT/OT: Bed Active Mina Mobility/Tr deficit: Mobility/T 2-20 luis Perry toilet/comm ransfer 13:45: PT ode 00 636645-9 Bed transfer PT/OT: Bed Active Mina Mobility/Tr deficit: Mobility/T 2-20 luis Perry shower/tub ransfer 13:45: PT 00 697878-0 Bed knowledge/s PT/OT: Bed Active Mina Mobility/Tr kill Mobility/T 2-20 [place] luis deficit: pt ransfer 13:45: PT 00 070821-2 Bed bed PT/OT: Bed Active Mina Mobility/Tr mobility Mobility/T 2-20 luis Perry deficit ransfer 13:45: PT 00 876250-1 Gait/Locomo gait PT/OT: Active Mina tion assistive Gait/Locom 2-20 [place], problems device otion 13:45: PT present 00 010755-9 Gait/Locomo knowledge/s PT/OT: Active Mina tion kill Gait/Locom 2-20 [place], problems deficit: pt otion 13:45: PT 00 736293-9 Gait/Locomo knowledge/s PT/OT: Active 20200 Mina tion kill Gait/Locom 2-20 [place], problems deficit: cg otion 13:45: PT 00 283195-2 Gait/Locomo gait PT/OT: Active 2019-0 Mina tion deficit Gait/Locom 2-20 [place], problems otion 13:45: PT 00 [id number] Safety risk for Safety Active 2019-0 Mina hospitaliza 2-24 [place], tion 09:15: PT 00 166884-5 Safety fall risk Safety Active 2019-0 [place] [...]
--- OUTSIDE RECORDS SUMMARY | 2019-10-22 14:32 | XMS REPORT ---
:1935 Author Organization [facility] Care Team Providers Name Role Phone Unavailable Unavailable Unavailable Problems Condition Condition Condition Status Onset Resolution Last Treating Comments Name Details Category Date Date Treatment Clinician Date Essential Essential Diagnosis Active 2020- Mina (primary) (primary) 2-20 [place], hypertensio hypertensio PT n n 299369-5 Low back Low back Diagnosis Active 2020- Mina pain pain 2-20 [place], PT 604876-9 Unspecified Unspecified Diagnosis Active 2020- Mina abnormaliti abnormaliti 2-20 [place], es of gait es of gait PT and and 461366-6 mobility mobility 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[place], with late with late PT onset onset 583599-1 Anxiety Anxiety Diagnosis Active 2020- Mina disorder, disorder, 2-20 [place], unspecified unspecified PT 878589-5 Pain frequent Pain Mgmt Resolve 2020-2019-09-13 Trudi pain d 2-20 10:10:00 [place] 10:10: [id number] 00 Respiratory dyspnea Respirator Resolve 2019-09-13 Trudi present y d 2-20 10:10:00 [place] 10:10: [id number] 00 Sensory impaired Sensory Resolve 2019-09-13 Trudi hearing d 2-20 10:10:00 [place] 10:10: [id number] 00 Nutrition nutritional Nutrition Resolve 2019-09-13 Trudi restriction d 2-20 10:10:00 [place] s 10:10: [id number] 00 Elimination urinary Eliminatio Resolve 2019-09-13 Trudi incontinenc n d 2-20 10:10:00 [place] e 10:10: [id number] 00 Elimination recurring Eliminatio Resolve 2019-2019-09-13 Trudi UTI n d 2-20 10:10:00 [place] 10:10: [id number] 00 Neuro impaired Neuro/Emot Resolve 2019-09-13 Trudi decision-ma ion d 2-20 10:10:00 [place] felicia 10:10: [id number] 00 Neuro behavior Neuro/Emot Resolve 2019-09-13 Trudi problems ion d 2-20 10:10:00 [place] 10:10: [id number] 00 Neuro psychiatric Neuro/Emot Resolve 2019-09-13 Trudi problems ion d 2-20 10:10:00 [place] 10:10: [id number] 00 Neuro memory Neuro/Emot Resolve 2019-09-13 Trudi deficit ion d 2-20 10:10:00 [place] needing 10:10: [id number] supervision 00 Neuro constant Neuro/Emot Resolve 2019-09-13 Trudi confusion ion d 2-20 10:10:00 [place] 10:10: [id number] 00 Activity ADL Activity Resolve 2019-09-13 Trudi assistance d 2-20 10:10:00 [place] required 10:10: [id number] 00 Activity self-care Activity Resolve 2019-09-13 Trudi deficit d 2-20 10:10:00 [place] 10:10: [id number] 00 Safety cannot be Safety Resolve 2019-09-13 Trudi left alone d 2-20 10:10:00 [place] 10:10: [id number] 00 Safety fall risk Safety Resolve 2019-09-13 Trudi factor d 2-20 10:10:00 [place] present 10:10: [id number] 00 Safety risk for Safety Resolve 2019-09-13 Trudi hospitaliza d 2-20 10:10:00 [place] tion 10:10: [id number] 00 Medication oral med Meds Resolve 2019-09-13 Trudi assistance d 2-20 10:10:00 [place] required 10:10: [id number] 00 Musculoskel transfer Musculoske Resolve 2019-09-13 Trudi etal assistance letal d 2-20 10:10:00 [place] required 10:10: [id number] 00 Musculoskel requires Musculoske Resolve 2019-09-13 Trudi etal human letal d 2-20 10:10:00 [place] assist to 10:10: [id number] leave home 00 Bed transfer PT/OT: Bed Resolve 2019-10-04 Mina Mobility/Tr deficit: Mobility/T d 2-20 09:00:00 luis Perry sit/stand ransfer 13:45: PT 00 556804-5 Bed transfer PT/OT: Bed Resolve 2019-10-04 Mina Mobility/Tr deficit: Mobility/T d 2-20 09:00:00 luis Perry standing ransfer 13:45: PT pivot 00 883724-1 Bed transfer PT/OT: Bed Resolve 2019-10-04 Mina Mobility/Tr deficit: Mobility/T d 2-20 09:00:00 luis Perry toilet/comm ransfer 13:45: PT ode 00 284484-8 Bed transfer PT/OT: Bed Resolve 2019-10-04 Mina Mobility/Tr deficit: Mobility/T d 2-20 09:00:00 luis Perry shower/tub ransfer 13:45: PT 00 551506-8 Bed knowledge/s PT/OT: Bed Resolve 2019-10-04 Mina Mobility/Tr kill Mobility/T d 2-20 09:00:00 luis Perry deficit: pt ransfer 13:45: PT 00 028213-7 Bed bed PT/OT: Bed Resolve 2019-10-04 Mina Mobility/Tr mobility Mobility/T d 2-20 09:00:00 luis Perry deficit ransfer 13:45: PT 00 758392-7 Gait/Locomo gait PT/OT: Resolve 2019-10-04 Mina tion assistive Gait/Locom d 2-20 09:00:00 sherif Perry device otion 13:45: PT present 00 750072-4 Gait/Locomo knowledge/s PT/OT: Resolve 2019-10-04 Mina tion kill Gait/Locom d 2-20 09:00:00 sherif Perry deficit: pt otion 13:45: PT 00 432593-5 Gait/Locomo knowledge/s PT/OT: Resolve 2019-10-04 Mina tion kill Gait/Locom d 2-20 09:00:00 sherif Perry deficit: cg otion 13:45: PT 00 [id number] Gait/Locomo gait PT/OT: Resolve 2019-10-04 Mina tikarli deficit Gait/Locom d 09-13 09:00:00 sherif Perry otion 13:45: PT 869003-4 Safety risk for Safety Resolve 2019-10-04 Mina hospitaliza d 09-17 09:00:00 [place] 09:15: PT 565284-6 Safety fall risk Safety Resolve 2019-10-04 [place] [...]
--- OUTSIDE RECORDS SUMMARY | 2019-10-22 14:33 | XMS REPORT ---
:1935 Author Organization [facility] Care Team Providers Name Role Phone Unavailable Unavailable Unavailable Problems Condition Condition Condition Status Onset Resolution Last Treating Comments Name Details Category Date Date Treatment Clinician Date Essential Essential Diagnosis Active Mina (primary) (primary) [place] hypertensio hypertensio PT n n 296538-1 Low back Low back Diagnosis Active Mina pain pain 2-18 [place], PT 884247-7 Pain frequent Pain Mgmt Resolve 2019-09-13 Trudi pain d 2-20 10:10:00 [place] 10:10: [id number] 00 Respiratory dyspnea Respirator Resolve 2019-09-13 Trudi present y d 2-20 10:10:00 [place] 10:10: [id number] 00 Sensory impaired Sensory Resolve 2019-09-13 Trudi hearing d 2-20 10:10:00 [place] 10:10: [id number] 00 Nutrition nutritional Nutrition Resolve 2019-09-13 Trudi restriction d 2-20 10:10:00 [place] s 10:10: [id number] 00 Elimination urinary Eliminatio Resolve 2019-09-13 Trudi incontinenc n d 2-20 10:10:00 [place] e 10:10: [id number] 00 Elimination recurring Eliminatio Resolve 2019-09-13 Trudi UTI n d 2-20 10:10:00 [place] 10:10: [id number] 00 Neuro impaired Neuro/Emot Resolve 2019-09-13 Trudi decision-ma ion d 2-20 10:10:00 [place] felicia 10:10: [id number] 00 Neuro behavior Neuro/Emot Resolve 2019-09-13 Trudi problems ion d 2-20 10:10:00 [place] 10:10: [id number] 00 Neuro psychiatric Neuro/Emot Resolve 2019-09-13 Trudi problems ion d 2-20 10:10:00 [place] 10:10: [id number] 00 Neuro memory Neuro/Emot Resolve 2019-09-13 Trudi deficit ion d 2-20 10:10:00 [place] needing 10:10: [id number] 00 Neuro constant Neuro/Emot Resolve 2019-09-13 Trudi confusion ion d 2-20 10:10:00 [place] 10:10: [id number] 00 Activity ADL Activity Resolve 2019-09-13 Trudi assistance d 2-20 10:10:00 [place] required 10:10: [id number] 00 Activity self-care Activity Resolve 2019-09-13 Trudi deficit d 2-20 10:10:00 [place] 10:10: [id number] 00 Safety cannot be Safety Resolve 2019-09-13 Trudi left alone d 2-20 10:10:00 [place] 10:10: [id number] 00 Safety fall risk Safety Resolve 2019-09-13 Trudi factor d 2-20 10:10:00 [place] present 10:10: [id number] 00 Safety risk for Safety Resolve 2019-09-13 Trudi hospitaliza d 2-20 10:10:00 [place] tion 10:10: [id number] 00 Medication oral med Meds Resolve 2019-09-13 Trudi assistance d 2-20 10:10:00 [place] required 10:10: [id number] 00 Musculoskel transfer Musculoske Resolve 2019-09-13 Trudi etal assistance letal d 2-20 10:10:00 [place] required 10:10: [id number] 00 Musculoskel requires Musculoske Resolve 2019-09-13 Trudi etal human letal d 2-20 10:10:00 [place] assist to 10:10: [id number] leave home 00 Bed transfer PT/OT: Bed Active Mina Mobility/Tr deficit: Mobility/T 2-20 [facility] 13:[facility]: PT [facility] 251885-8 Bed transfer PT/OT: Bed Active Mina Mobility/Tr deficit: Mobility/T 2-20 [facility] 13:[facility]: PT pivot 00 200136-3 Bed transfer PT/OT: Bed Active 2020-0 Mina Mobility/Tr deficit: Mobility/T 2-20 luis Perry toilet/comm ransfer 13:45: PT ode 00 928839-4 Bed transfer PT/OT: Bed Active 2020-0 Mina Mobility/Tr deficit: Mobility/T 2-20 luis Perry shower/tub ransfer 13:45: PT 00 739059-2 Bed knowledge/s PT/OT: Bed Active 2020-0 Mina Mobility/Tr kill Mobility/T 2-20 [place] ansfer deficit: pt ransfer 13:45: PT 00 612849-9 Bed bed PT/OT: Bed Active 20200 Mina Mobility/Tr mobility Mobility/T 2-20 luis Perry deficit ransfer 13:45: PT 00 025181-6 Gait/Locomo gait PT/OT: Active 2020-0 Mina tion assistive Gait/Locom 2-20 [place], problems device otion 13:45: PT present 00 562739-3 Gait/Locomo knowledge/s PT/OT: Active 2020-0 Mina tion kill Gait/Locom 2-20 [place], problems deficit: pt otion 13:45: PT 00 591583-7 Gait/Locomo knowledge/s PT/OT: Active 2020-0 Mina tion kill Gait/Locom 2-20 [place], problems deficit: cg otion 13:45: PT 00 670866-3 Gait/Locomo gait PT/OT: Active 2020-0 Mina tion deficit Gait/Locom 2-20 [place], problems otion 13:45: PT 00 860723-9 Allergies, Adverse Reactions, Alerts Allergy Allergy Status Severity Reaction(s) Onset Inactive Treating Comments Name Type Date Date Clinician Unknown None Active Unknown None Unknown No Known Allergies For This Patient Medications Ordered Filled Start Stop Current Ordering Indication Dosage Frequency Signature Comments Components Medication Medication Date Date Medication? Clinician (SIG) Name Name donepezil 5 donepezil 5 2019-0 Yes Jander Unknown Unknown mg tablet mg tablet 2-20 MD,Simran escitalopra escitalopra 2019-0 Yes Jander Unknown Unknown m 10 mg [...] tablet mg tablet 2-20 MD,Simran cetirizine cetirizine 2020-0 Yes Jander Unknown Unknown 10 mg 10 mg 2-20 MD,Simran capsule capsule acetaminoph acetaminoph 2020-0 Yes Jander Unknown Unknown en 325 mg en 325 mg 2-20 MD,Simran tablet tablet cholecalcif cholecalcif 2020-0 Yes Jander Unknown Unknown byron byron 2-20 MD,Simran (vitamin (vitamin D3) 50,000 D3) 50,000 unit unit capsule capsule d-mannose d-mannose 2019-0 Yes Jander Unknown Unknown oral powder oral powder 2-20 MD,Simran loperamide loperamide 2019-0 Yes Jander Unknown Unknown 2 mg 2 mg 2-20 MD,Simran capsule capsule Centrum Centrum 2020-0 Yes Jander Unknown Unknown Silver 400 Silver 400 2-20 MD,Simran mcg-250 mcg mcg-250 mcg chewable chewable tablet tablet Vital Signs Vital Name Observation Time Observation Value Comments SYSTOLIC mm[Hg] 2019-09-13 18:10:29 142 mm[Hg] mm[Hg] Method: Sit SYSTOLIC mm[Hg] 2019-09-13 18:10:29 120 mm[Hg] mm[Hg] Method: Stand DIASTOLIC mm[Hg] 2019-09-13 18:10:29 82 mm[Hg] mm[Hg] Method: Sit DIASTOLIC mm[Hg] 2019-09-13 18:10:29 89 mm[Hg] mm[Hg] Method: Stand PULSE 2019-09-13 18:10:29 86 /min /min RESP RATE 2019-09-13 18:10:29 18 /min /min TEMP 2019-09-13 18:10: 96.8 [degF] Procedures This patient has no known procedures. Results This patient has no known results.
--- OUTSIDE RECORDS SUMMARY | 2019-10-22 14:33 | XMS REPORT ---
:1935 Author Organization [facility] Care Team Providers Name Role Phone Unavailable Unavailable Unavailable Problems Condition Condition Condition Status Onset Resolution Last Treating Comments Name Details Category Date Date Treatment Clinician Date Essential Essential Diagnosis Active Mina (primary) (primary) [place] hypertensio hypertensio PT n n 701847-6 Low back Low back Diagnosis Active Mina pain pain 2-18 [place], PT 631868-0 Pain frequent Pain Mgmt Resolve 2019-09-13 Trudi pain d 2-20 10:10:00 [place] 10:10: [id number] 00 Respiratory dyspnea Respirator Resolve 2019-09-13 Trudi present y d 2-20 10:10:00 [place] 10:10: [id number] 00 Sensory impaired Sensory Resolve 2019-09-13 Trudi hearing d 2-20 10:10:00 [place] 10:10: [id number] 00 Nutrition nutritional Nutrition Resolve 2019-09-13 Trudi restriction d 2-20 10:10:00 [place] s 10:10: [id number] 00 Elimination urinary Eliminatio Resolve 2019-09-13 Trudi incontinenc n d 2-20 10:10:00 [place] e 10:10: [id number] 00 Elimination recurring Eliminatio Resolve 2019-09-13 Trudi UTI n d 2-20 10:10:00 [place] 10:10: [id number] 00 Neuro impaired Neuro/Emot Resolve 2019-09-13 Trudi decision-ma ion d 2-20 10:10:00 [place] felicia 10:10: [id number] 00 Neuro behavior Neuro/Emot Resolve 2019-09-13 Trudi problems ion d 2-20 10:10:00 [place] 10:10: [id number] 00 Neuro psychiatric Neuro/Emot Resolve 2019-09-13 Trudi problems ion d 2-20 10:10:00 [place] 10:10: [id number] 00 Neuro memory Neuro/Emot Resolve 2019-09-13 Trudi deficit ion d 2-20 10:10:00 [place] needing 10:10: [id number] 00 Neuro constant Neuro/Emot Resolve 2019-09-13 Trudi confusion ion d 2-20 10:10:00 [place] 10:10: [id number] 00 Activity ADL Activity Resolve 2019-09-13 Trudi assistance d 2-20 10:10:00 [place] required 10:10: [id number] 00 Activity self-care Activity Resolve 2019-09-13 Trudi deficit d 2-20 10:10:00 [place] 10:10: [id number] 00 Safety cannot be Safety Resolve 2019-09-13 Trudi left alone d 2-20 10:10:00 [place] 10:10: [id number] 00 Safety fall risk Safety Resolve 2019-09-13 Trudi factor d 2-20 10:10:00 [place] present 10:10: [id number] 00 Safety risk for Safety Resolve 2019-09-13 Trudi hospitaliza d 2-20 10:10:00 [place] tion 10:10: [id number] 00 Medication oral med Meds Resolve 2019-09-13 Trudi assistance d 2-20 10:10:00 [place] required 10:10: [id number] 00 Musculoskel transfer Musculoske Resolve 2019-09-13 Trudi etal assistance letal d 2-20 10:10:00 [place] required 10:10: [id number] 00 Musculoskel requires Musculoske Resolve 2019-09-13 Trudi etal human letal d 2-20 10:10:00 [place] assist to 10:10: [id number] leave home 00 Bed transfer PT/OT: Bed Active Mina Mobility/Tr deficit: Mobility/T 2-20 [facility] 13:[facility]: PT [facility] 993537-7 Bed transfer PT/OT: Bed Active Mina Mobility/Tr deficit: Mobility/T 2-20 [facility] 13:[facility]: PT pivot 00 969581-3 Bed transfer PT/OT: Bed Active 2020-0 Mina Mobility/Tr deficit: Mobility/T 2-20 luis Perry toilet/comm ransfer 13:45: PT ode 00 454502-6 Bed transfer PT/OT: Bed Active 2020-0 Mina Mobility/Tr deficit: Mobility/T 2-20 luis Perry shower/tub ransfer 13:45: PT 00 768237-0 Bed knowledge/s PT/OT: Bed Active 2020-0 Mina Mobility/Tr kill Mobility/T 2-20 [place] ansfer deficit: pt ransfer 13:45: PT 00 165909-2 Bed bed PT/OT: Bed Active 20200 Mina Mobility/Tr mobility Mobility/T 2-20 luis Perry deficit ransfer 13:45: PT 00 926504-8 Gait/Locomo gait PT/OT: Active 2020-0 Mina tion assistive Gait/Locom 2-20 [place], problems device otion 13:45: PT present 00 638663-2 Gait/Locomo knowledge/s PT/OT: Active 2020-0 Mina tion kill Gait/Locom 2-20 [place], problems deficit: pt otion 13:45: PT 00 899261-0 Gait/Locomo knowledge/s PT/OT: Active 2020-0 Mina tion kill Gait/Locom 2-20 [place], problems deficit: cg otion 13:45: PT 00 945775-0 Gait/Locomo gait PT/OT: Active 2020-0 Mina tion deficit Gait/Locom 2-20 [place], problems otion 13:45: PT 00 689796-5 Allergies, Adverse Reactions, Alerts Allergy Allergy Status [...]
--- OUTSIDE RECORDS SUMMARY | 2019-10-22 14:33 | XMS REPORT ---
:1935 Author Organization [facility] Care Team Providers Name Role Phone Unavailable Unavailable Unavailable Problems Condition Condition Condition Status Onset Resolution Last Treating Comments Name Details Category Date Date Treatment Clinician Date Essential Essential Diagnosis Active Frances (primary) (primary) [place] hypertensio hypertensio [id number] n n Low back Low back Diagnosis Active 0 Frances pain pain 2-18 Wendela [id number] Allergies, Adverse Reactions, Alerts Allergy Allergy Status Severity Reaction(s) Onset Inactive Treating Comments Name Type Date Date Clinician Unknown None Active Unknown None Unknown No Known Allergies For This Patient Medications Ordered Filled Start Stop Current Ordering Indication Dosage Frequency Signature Comments Components Medication Medication Date Date Medication? Clinician (SIG) Name Name No Known No Known No None None None Medications Medications For This For This Patient Patient Procedures This patient has no known procedures. Results This patient has no known results.
--- OUTSIDE RECORDS SUMMARY | 2019-10-22 14:33 | XMS REPORT ---
:1935 Author Organization [facility] Care Team Providers Name Role Phone Unavailable Unavailable Unavailable Problems Condition Condition Condition Status Onset Resolution Last Treating Comments Name Details Category Date Date Treatment Clinician Date Essential Essential Diagnosis Active 2020 Mina (primary) (primary) 2-20 [place], hypertensio hypertensio PT n n 312652-3 Low back Low back Diagnosis Active 2020- Mina pain pain 2-20 [place], PT 267379-8 Unspecified Unspecified Diagnosis Active 2020- Mina abnormaliti abnormaliti 2-20 [place], es of gait es of gait PT and and 157580-4 mobility mobility 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[place], with late with late PT onset onset 133958-7 Anxiety Anxiety Diagnosis Active 2020- Mina disorder, disorder, 2-20 [place], unspecified unspecified PT 426667-3 Pain frequent Pain Mgmt Resolve 2020-2019-09-13 Trudi pain d 2-20 10:10:00 [place] 10:10: [id number] 00 Respiratory dyspnea Respirator Resolve 2019-09-13 Trudi present y d 2-20 10:10:00 [place] 10:10: [id number] 00 Sensory impaired Sensory Resolve 2019-09-13 Trudi hearing d 2-20 10:10:00 [place] 10:10: [id number] 00 Nutrition nutritional Nutrition Resolve 2019-09-13 Trudi restriction d 2-20 10:10:00 [place] s 10:10: [id number] 00 Elimination urinary Eliminatio Resolve 2019-09-13 Trudi incontinenc n d 2-20 10:10:00 [place] e 10:10: [id number] 00 Elimination recurring Eliminatio Resolve 2019-2019-09-13 Trudi UTI n d 2-20 10:10:00 [place] 10:10: [id number] 00 Neuro impaired Neuro/Emot Resolve 2019-09-13 Trudi decision-ma ion d 2-20 10:10:00 [place] felicia 10:10: [id number] 00 Neuro behavior Neuro/Emot Resolve 2019-09-13 [place] problems ion d 2-20 10:10:00 [place] 10:10: [id number] 00 Neuro psychiatric Neuro/Emot Resolve 2019-09-13 Trudi problems ion d 2-20 10:10:00 [place] 10:10: [id number] 00 Neuro memory Neuro/Emot Resolve 2019-09-13 Trudi deficit ion d 2-20 10:10:00 [place] needing 10:10: [id number] 00 Neuro constant Neuro/Emot Resolve 2019-09-13 Trudi confusion ion d 2-20 10:10:00 [place] 10:10: [id number] 00 Activity ADL Activity Resolve 2019-09-13 Trudi assistance d 2-20 10:10:00 [place] required 10:10: [id number] 00 Activity self-care Activity Resolve 2019-09-13 Trudi deficit d 2-20 10:10:00 [place] 10:10: [id number] 00 Safety cannot be Safety Resolve 2019-09-13 Trudi left alone d 2-20 10:10:00 [place] 10:10: [id number] 00 Safety fall risk Safety Resolve 2019-09-13 Trudi factor d 2-20 10:10:00 [place] present 10:10: [id number] 00 Safety risk for Safety Resolve 2019-09-13 Trudi hospitaliza d 2-20 10:10:00 [place] tion 10:10: [id number] 00 Medication oral med Meds Resolve 2019-09-13 Trudi assistance d 2-20 10:10:00 [place] required 10:10: [id number] 00 Musculoskel transfer Musculoske Resolve 2019-09-13 Trudi etal assistance letal d 2-20 10:10:00 [place] required 10:10: [id number] 00 Musculoskel requires Musculoske Resolve 2019-09-13 Trudi etal human letal d 2-20 10:10:00 [place] assist to 10:10: [id number] leave home 00 Bed transfer PT/OT: Bed Active Mina Mobility/Tr deficit: Mobility/T 2-20 luis Perry sit/stand ransfer 13:45: PT 00 662495-7 Bed transfer PT/OT: Bed Active Mina Mobility/Tr deficit: Mobility/T 2-20 luis Perry standing ransfer 13:45: PT pivot 00 [id number] Bed transfer PT/OT: Bed Active Mina Mobility/Tr deficit: Mobility/T 2-20 luis Perry toilet/comm ransfer 13:45: PT ode 00 013828-0 Bed transfer PT/OT: Bed Active Mina Mobility/Tr deficit: Mobility/T 2-20 luis Perry shower/tub ransfer 13:45: PT 00 [id number] Bed knowledge/s PT/OT: Bed Active Mina Mobility/Tr kill Mobility/T 2-20 [place] luis deficit: pt ransfer 13:45: PT 00 986794-4 Bed bed PT/OT: Bed Active Mina Mobility/Tr mobility Mobility/T 2-20 luis Perry deficit ransfer 13:45: PT 00 [id number] Gait/Locomo gait PT/OT: Active Mina tion assistive Gait/Locom 2-20 [place], problems device otion 13:45: PT present 00 360797-7 Gait/Locomo knowledge/s PT/OT: Active Mina tion kill Gait/Locom 2-20 [place], problems deficit: pt otion 13:45: PT 00 [id number] Gait/Locomo knowledge/s PT/OT: Active 20200 Mina tion kill Gait/Locom 2-20 [place], problems deficit: cg otion 13:45: PT 00 868790-8 Gait/Locomo gait PT/OT: Active 2019-0 Mina tion deficit Gait/Locom 2-20 [place], problems otion 13:45: PT 00 653640-1 Safety risk for Safety Active 2019-0 Mina hospitaliza 2-24 [place], tion 09:15: PT 00 505017-2 Safety fall risk Safety Active 2019-0 [place] [...] Observation Time Observation Value Comments SYSTOLIC mm[Hg] 2019-09-17 18:10:33 142 mm[Hg] mm[Hg] Method: Sit SYSTOLIC mm[Hg] 2019-09-13 18:10:29 120 mm[Hg] mm[Hg] Method: Stand DIASTOLIC mm[Hg] 2019-09-17 18:10:33 80 mm[Hg] mm[Hg] Method: Sit DIASTOLIC mm[Hg] 2019-09-13 18:10:29 89 mm[Hg] mm[Hg] Method: Stand PULSE 2019-09-17 18:10:33 86 /min /min RESP RATE 2019-09-17 18:10:33 18 /min /min TEMP 2019-09-17 18:10:33 97.2 [degF] Procedures This patient has no known procedures. Results This patient has no known results.
--- OUTSIDE RECORDS SUMMARY | 2019-10-22 14:33 | XMS REPORT ---
:1935 Author Organization [facility] Care Team Providers Name Role Phone Unavailable Unavailable Unavailable Problems Condition Condition Condition Status Onset Resolution Last Treating Comments Name Details Category Date Date Treatment Clinician Date Essential Essential Diagnosis Active 2020- Mina (primary) (primary) 2-20 [place], hypertensio hypertensio PT n n 812057-7 Low back Low back Diagnosis Active 2020- Mina pain pain 2-20 [place], [place] 284938-9 Unspecified Unspecified Diagnosis Active 2020- Mina abnormaliti abnormaliti 2-20 [place], es of gait es of gait PT and and 678732-5 mobility mobility 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[place], with late with late PT onset onset 249704-5 Anxiety Anxiety Diagnosis Active 2020- Mina disorder, disorder, 2-20 [place], unspecified unspecified PT 887170-7 Pain frequent Pain Mgmt Resolve 2020-2019-09-13 Trudi pain d 2-20 10:10:00 [place] 10:10: [id number] 00 Respiratory dyspnea Respirator Resolve 2019-09-13 Trudi present y d 2-20 10:10:00 [place] 10:10: [id number] 00 Sensory impaired Sensory Resolve 2019-09-13 Trudi hearing d 2-20 10:10:00 [place] 10:10: [id number] 00 Nutrition nutritional Nutrition Resolve 2019-09-13 Trudi restriction d 2-20 10:10:00 [place] s 10:10: [id number] 00 Elimination urinary Eliminatio Resolve 2019-09-13 Trudi incontinenc n d 2-20 10:10:00 [place] e 10:10: [id number] 00 Elimination recurring Eliminatio Resolve 2019-2019-09-13 Trudi UTI n d 2-20 10:10:00 [place] 10:10: [id number] 00 Neuro impaired Neuro/Emot Resolve 2019-09-13 Trudi decision-ma ion d 2-20 10:10:00 [place] felicia 10:10: [id number] 00 Neuro behavior Neuro/Emot Resolve 2019-09-13 Trudi problems ion d 2-20 10:10:00 [place] 10:10: [id number] 00 Neuro psychiatric Neuro/Emot Resolve 2019-09-13 Trudi problems ion d 2-20 10:10:00 [place] 10:10: [id number] 00 Neuro memory Neuro/Emot Resolve 2019-09-13 Trudi deficit ion d 2-20 10:10:00 [place] needing 10:10: [id number] 00 Neuro constant Neuro/Emot Resolve 2019-09-13 Trudi confusion ion d 2-20 10:10:00 [place] 10:10: [id number] 00 Activity ADL Activity Resolve 2019-09-13 Trudi assistance d 2-20 10:10:00 [place] required 10:10: [id number] 00 Activity self-care Activity Resolve 2019-09-13 Trudi deficit d 2-20 10:10:00 [place] 10:10: [id number] 00 Safety cannot be Safety Resolve 2019-09-13 Trudi left alone d 2-20 10:10:00 [place] 10:10: [id number] 00 Safety fall risk Safety Resolve 2019-09-13 Trudi factor d 2-20 10:10:00 [place] present 10:10: [id number] 00 Safety risk for Safety Resolve 2019-09-13 Trudi hospitaliza d 2-20 10:10:00 [place] tion 10:10: [id number] 00 Medication oral med Meds Resolve 2019-09-13 Trudi assistance d 2-20 10:10:00 [place] required 10:10: [id number] 00 Musculoskel transfer Musculoske Resolve 2019-09-13 Trudi etal assistance letal d 2-20 10:10:00 [place] required 10:10: [id number] 00 Musculoskel requires Musculoske Resolve 2019-09-13 Trudi etal human letal d 2-20 10:10:00 [place] assist to 10:10: [id number] leave home 00 Bed transfer PT/OT: Bed Active Mina Mobility/Tr deficit: Mobility/T 2-20 luis Perry sit/stand ransfer 13:45: PT 00 792135-7 Bed transfer PT/OT: Bed Active Mina Mobility/Tr deficit: Mobility/T 2-20 luis Perry standing ransfer 13:45: PT pivot 00 911144-1 Bed transfer PT/OT: Bed Active Mina Mobility/Tr deficit: Mobility/T 2-20 luis Perry toilet/comm ransfer 13:45: PT ode 00 169300-1 Bed transfer PT/OT: Bed Active Mina Mobility/Tr deficit: Mobility/T 2-20 luis Perry shower/tub ransfer 13:45: PT 00 208245-2 Bed knowledge/s PT/OT: Bed Active Mina Mobility/Tr kill Mobility/T 2-20 [place] luis deficit: pt ransfer 13:45: PT 00 [id number] Bed bed PT/OT: Bed Active Mina Mobility/Tr mobility Mobility/T 2-20 luis Perry deficit ransfer 13:45: PT 00 393822-2 Gait/Locomo gait PT/OT: Active Mina tion assistive Gait/Locom 2-20 [place], problems device otion 13:45: PT present 00 216289-6 Gait/Locomo knowledge/s PT/OT: Active Mina tion kill Gait/Locom 2-20 [place], problems deficit: pt otion 13:45: PT 00 529246-1 Gait/Locomo knowledge/s PT/OT: Active 20200 Mina tion kill Gait/Locom 2-20 [place], problems deficit: cg otion 13:45: PT 00 328054-3 Gait/Locomo gait PT/OT: Active 2019-0 Mina tion deficit Gait/Locom 2-20 [place], problems otion 13:45: PT 00 985373-2 Safety risk for Safety Active 2019-0 Mina hospitaliza 2-24 [place], tion 09:15: PT 00 [id number] Safety fall risk Safety Active 2019-0 [place] [...]
--- OUTSIDE RECORDS SUMMARY | 2019-10-22 14:33 | XMS REPORT ---
:1935 Author Organization [facility] Care Team Providers Name Role Phone Unavailable Unavailable Unavailable Problems Condition Condition Condition Status Onset Resolution Last Treating Comments Name Details Category Date Date Treatment Clinician Date Essential Essential Diagnosis Active Mina (primary) (primary) [place] hypertensio hypertensio PT n n 177708-5 Low back Low back Diagnosis Active Mina pain pain 2-18 [place], PT 764454-8 Pain frequent Pain Mgmt Resolve 2019-09-13 Trudi pain d 2-20 10:10:00 [place] 10:10: [id number] 00 Respiratory dyspnea Respirator Resolve 2019-09-13 Trudi present y d 2-20 10:10:00 [place] 10:10: [id number] 00 Sensory impaired Sensory Resolve 2019-09-13 Trudi hearing d 2-20 10:10:00 [place] 10:10: [id number] 00 Nutrition nutritional Nutrition Resolve 2019-09-13 Trudi restriction d 2-20 10:10:00 [place] s 10:10: [id number] 00 Elimination urinary Eliminatio Resolve 2019-09-13 Trudi incontinenc n d 2-20 10:10:00 [place] e 10:10: [id number] 00 Elimination recurring Eliminatio Resolve 2019-09-13 Trudi UTI n d 2-20 10:10:00 [place] 10:10: [id number] 00 Neuro impaired Neuro/Emot Resolve 2019-09-13 Trudi decision-ma ion d 2-20 10:10:00 [place] felicia 10:10: [id number] 00 Neuro behavior Neuro/Emot Resolve 2019-09-13 Trudi problems ion d 2-20 10:10:00 [place] 10:10: [id number] 00 Neuro psychiatric Neuro/Emot Resolve 2019-09-13 Trudi problems ion d 2-20 10:10:00 [place] 10:10: [id number] 00 Neuro memory Neuro/Emot Resolve 2019-09-13 Trudi deficit ion d 2-20 10:10:00 [place] needing 10:10: [id number] supervision 00 Neuro constant Neuro/Emot Resolve 2019-09-13 Trudi confusion ion d 2-20 10:10:00 [place] 10:10: [id number] 00 Activity ADL Activity Resolve 2019-09-13 Trudi assistance d 2-20 10:10:00 [place] required 10:10: [id number] 00 Activity self-care Activity Resolve 2019-09-13 Trudi deficit d 2-20 10:10:00 [place] 10:10: [id number] 00 Safety cannot be Safety Resolve 2019-09-13 Trudi left alone d 2-20 10:10:00 [place] 10:10: [id number] 00 Safety fall risk Safety Resolve 2019-09-13 Trudi factor d 2-20 10:10:00 [place] present 10:10: [id number] 00 Safety risk for Safety Resolve 2019-09-13 Trudi hospitaliza d 2-20 10:10:00 [place] tion 10:10: [id number] 00 Medication oral med Meds Resolve 2019-09-13 Trudi assistance d 2-20 10:10:00 [place] required 10:10: [id number] 00 Musculoskel transfer Musculoske Resolve 2019-09-13 Trudi etal assistance letal d 2-20 10:10:00 [place] required 10:10: [id number] 00 Musculoskel requires Musculoske Resolve 2019-09-13 Trudi etal human letal d 2-20 10:10:00 [place] assist to 10:10: [id number] leave home 00 Bed transfer PT/OT: Bed Active Mina Mobility/Tr deficit: Mobility/T 2-20 [facility] 13:[facility]: PT 00 340591-7 Bed transfer PT/OT: Bed Active Mina Mobility/Tr deficit: Mobility/T 2-20 [facility] 13:45: PT pivot 00 829961-0 Bed transfer PT/OT: Bed Active 2020-0 Mina Mobility/Tr deficit: Mobility/T 2-20 luis Perry toilet/comm ransfer 13:45: PT ode 00 704389-0 Bed transfer PT/OT: Bed Active 2020-0 Mina Mobility/Tr deficit: Mobility/T 2-20 luis Perry shower/tub ransfer 13:45: PT 00 809175-7 Bed knowledge/s PT/OT: Bed Active 2020-0 Mina Mobility/Tr kill Mobility/T 2-20 [place] ansfer deficit: pt ransfer 13:45: PT 00 664019-5 Bed bed PT/OT: Bed Active 20200 Mina Mobility/Tr mobility Mobility/T 2-20 luis Perry deficit ransfer 13:45: PT 00 063576-7 Gait/Locomo gait PT/OT: Active 2020-0 Mina tion assistive Gait/Locom 2-20 [place], problems device otion 13:45: PT present 00 303333-1 Gait/Locomo knowledge/s PT/OT: Active 2020-0 Mina tion kill Gait/Locom 2-20 [place], problems deficit: pt otion 13:45: PT 00 685699-5 Gait/Locomo knowledge/s PT/OT: Active 2020-0 Mina tion kill Gait/Locom 2-20 [place], problems deficit: cg otion 13:45: PT 00 016775-2 Gait/Locomo gait PT/OT: Active 2020-0 Mina tion deficit Gait/Locom 2-20 [place], problems otion 13:45: PT 00 513095-3 Allergies, Adverse Reactions, Alerts Allergy Allergy Status [...]
--- OUTSIDE RECORDS SUMMARY | 2019-10-22 14:33 | XMS REPORT ---
:1935 Author Organization [facility] Care Team Providers Name Role Phone Unavailable Unavailable Unavailable Problems Condition Condition Condition Status Onset Resolution Last Treating Comments Name Details Category Date Date Treatment Clinician Date Essential Essential Diagnosis Active Camille (primary) (primary) Mal[place]ara hypertensio hypertensio RN n n Low back Low back Diagnosis Active Camille pain pain 2-18 Jessika RN Allergies, Adverse Reactions, Alerts Allergy Allergy Status [...]
--- OUTSIDE RECORDS SUMMARY | 2019-10-22 14:33 | XMS REPORT ---
:1935 Author Organization [facility] Care Team Providers Name Role Phone Unavailable Unavailable Unavailable Problems Condition Condition Condition Status Onset Resolution Last Treating Comments Name Details Category Date Date Treatment Clinician Date Essential Essential Diagnosis Active Mina (primary) (primary) [place] hypertensio hypertensio PT n n 982177-4 Low back Low back Diagnosis Active 2020-0 Mina pain pain 2-18 [place], PT 390531-8 Pain frequent Pain Mgmt Active 2020-0 Trudi pain 2-20 [place] 10:10: [id number] 00 Respiratory dyspnea Respirator Active 2020-0 Trudi present y - [place] 10:10: [id number] 00 Sensory impaired Sensory Active 2020-0 Trudi hearing 2-20 [place] 10:10: [id number] 00 Nutrition nutritional Nutrition Active 2020-0 Trudi restriction 2-20 [place] s 10:10: [id number] 00 Elimination urinary Eliminatio Active 2020-0 Trudi incontinenc n 2-20 [place] e 10:10: [id number] 00 Elimination recurring Eliminatio Active 2020-0 Trudi UTI n 2-20 [place] 10:10: [id number] 00 Neuro impaired Neuro/Emot Active 2020-0 Trudi decision-ma ion 2-20 [place] felicia 10:10: [id number] 00 Neuro behavior Neuro/Emot Active 2020-0 Trudi problems ion 2-20 [place] 10:10: [id number] 00 Neuro psychiatric Neuro/Emot Active 2020-0 Trudi problems ion 2-20 [place] 10:10: [id number] 00 Neuro memory Neuro/Emot Active 2020-0 Trudi deficit ion 2-20 [place] needing 10:10: [id number] supervision 00 Neuro constant Neuro/Emot Active 2020-0 Trudi confusion ion 2-20 [place] 10:10: [id number] 00 Activity ADL Activity Active 2020-0 Trudi assistance 2-20 [place] required 10:10: [id number] 00 Activity self-care Activity Active 2020-0 Trudi deficit -20 [place] 10:10: [id number] 00 Safety cannot be Safety Active 2019-0 Trudi left alone -20 [place] 10:10: [id number] 00 Safety fall risk Safety Active 2020-0 Trudi factor -20 [place] present 10:10: [id number] 00 Safety risk for Safety Active 2019-0 Trudi hospitaliza 20 [place] tion 10:10: [id number] 00 Medication oral med Meds Active 2019-0 Trudi assistance -20 [place] required 10:10: [id number] 00 Musculoskel transfer Musculoske Active 2019-0 Trudi etal assistance letal 20 [place] required 10:10: [id number] 00 Musculoskel requires Musculoske Active 2019-0 Trudi etal human letal -20 [place] assist to 10:10: [id number] leave home 00 Bed transfer PT/OT: Bed Active 2020-0 Mina Mobility/Tr deficit: Mobility/T 2-20 luis Perry sit/stand ransfer 13:45: PT 00 475692-8 Bed transfer PT/OT: Bed Active 2020-0 Mina Mobility/Tr deficit: Mobility/T 2-20 luis Perry standing ransfer 13:45: PT pivot 00 [id number] Bed transfer PT/OT: Bed Active 2020-0 Mina Mobility/Tr deficit: Mobility/T 2-20 luis Perry toilet/comm ransfer 13:45: PT ode 00 297952-5 Bed transfer PT/OT: Bed Active 2020-0 Mina Mobility/Tr deficit: Mobility/T 2-20 luis Perry shower/tub ransfer 13:45: PT 00 380116-6 Bed knowledge/s PT/OT: Bed Active 2020-0 Mina Mobility/Tr kill Mobility/T 2-20 luis Perry deficit: pt ransfer 13:45: PT 00 118145-4 Bed bed PT/OT: Bed Active 2020-0 Mina Mobility/Tr mobility Mobility/T 2-20 luis Perry deficit ransfer 13:45: PT 00 138768-6 Gait/Locomo gait PT/OT: Active 2020-0 Mina tion assistive Gait/Locom 2-20 sherif Perry device otion 13:45: PT present 00 853384-2 Gait/Locomo knowledge/s PT/OT: Active 2020-0 Mina tion kill Gait/Locom 2-20 [place], problems deficit: pt otion 13:45: PT 00 028015-4 Gait/Locomo knowledge/s PT/OT: Active 2020-0 Mina tion kill Gait/Locom 2-20 [place], problems deficit: cg otion 13:45: PT 00 116847-4 Gait/Locomo gait PT/OT: Active 2020-0 Mina tion deficit Gait/Locom 2-20 [place], problems otion 13:45: PT 00 943855-2 Allergies, Adverse Reactions, Alerts Allergy Allergy Status [...] Medications For This For This Patient Patient Vital Signs Vital Name Observation Time Observation Value Comments SYSTOLIC mm[Hg] 2019-09-13 18:10:29 142 mm[Hg] mm[Hg] Method: Sit SYSTOLIC mm[Hg] 2019-09-13 18:10:29 120 mm[Hg] mm[Hg] Method: Stand DIASTOLIC mm[Hg] 2019-09-13 18:10:29 82 mm[Hg] mm[Hg] Method: Sit DIASTOLIC mm[Hg] 2019-09-13 18:10:29 89 mm[Hg] mm[Hg] Method: Stand PULSE 2019-09-13 18:10:29 86 /min /min RESP RATE 2019-09-13 18:10:29 18 /min /min TEMP 2019-09-13 18:10:29 96.8 [degF] Procedures This patient has no known procedures. Results This patient has no known results.
--- OUTSIDE RECORDS SUMMARY | 2019-10-22 14:33 | XMS REPORT ---
:1935 Author Organization [facility] Care Team Providers Name Role Phone Unavailable Unavailable Unavailable Problems Condition Condition Condition Status Onset Resolution Last Treating Comments Name Details Category Date Date Treatment Clinician Date Essential Essential Diagnosis Active Mina (primary) (primary) [place] hypertensio hypertensio PT n n 848036-0 Low back Low back Diagnosis Active Mina pain pain 2-18 [place], PT 575812-3 Pain frequent Pain Mgmt Resolve 2019-09-13 Trudi pain d 2-20 10:10:00 [place] 10:10: [id number] 00 Respiratory dyspnea Respirator Resolve 2019-09-13 Trudi present y d 2-20 10:10:00 [place] 10:10: [id number] 00 Sensory impaired Sensory Resolve 2019-09-13 Trudi hearing d 2-20 10:10:00 [place] 10:10: [id number] 00 Nutrition nutritional Nutrition Resolve 2019-09-13 Trudi restriction d 2-20 10:10:00 [place] s 10:10: [id number] 00 Elimination urinary Eliminatio Resolve 2019-09-13 Trudi incontinenc n d 2-20 10:10:00 [place] e 10:10: [id number] 00 Elimination recurring Eliminatio Resolve 2019-09-13 Trudi UTI n d 2-20 10:10:00 [place] 10:10: [id number] 00 Neuro impaired Neuro/Emot Resolve 2019-09-13 Trudi decision-ma ion d 2-20 10:10:00 [place] felicia 10:10: [id number] 00 Neuro behavior Neuro/Emot Resolve 2019-09-13 Trudi problems ion d 2-20 10:10:00 [place] 10:10: [id number] 00 Neuro psychiatric Neuro/Emot Resolve 2019-09-13 Trudi problems ion d 2-20 10:10:00 [place] 10:10: [id number] 00 Neuro memory Neuro/Emot Resolve 2019-09-13 Trudi deficit ion d 2-20 10:10:00 [place] needing 10:10: [id number] supervision 00 Neuro constant Neuro/Emot Resolve 2019-09-13 Trudi confusion ion d 2-20 10:10:00 [place] 10:10: [id number] 00 Activity ADL Activity Resolve 2019-09-13 Trudi assistance d 2-20 10:10:00 [place] required 10:10: [id number] 00 Activity self-care Activity Resolve 2019-09-13 Trudi deficit d 2-20 10:10:00 [place] 10:10: [id number] 00 Safety cannot be Safety Resolve 2019-09-13 Trudi left alone d 2-20 10:10:00 [place] 10:10: [id number] 00 Safety fall risk Safety Resolve 2019-09-13 Trudi factor d 2-20 10:10:00 [place] present 10:10: [id number] 00 Safety risk for Safety Resolve 2019-09-13 Trudi hospitaliza d 2-20 10:10:00 [place] tion 10:10: [id number] 00 Medication oral med Meds Resolve 2019-09-13 Trudi assistance d 2-20 10:10:00 [place] required 10:10: [id number] 00 Musculoskel transfer Musculoske Resolve 2019-09-13 Trudi etal assistance letal d 2-20 10:10:00 [place] required 10:10: [id number] 00 Musculoskel requires Musculoske Resolve 2019-09-13 Trudi etal human letal d 2-20 10:10:00 [place] assist to 10:10: [id number] leave home 00 Bed transfer PT/OT: Bed Active Mina Mobility/Tr deficit: Mobility/T 2-20 [facility] 13:[facility]: PT 00 530958-5 Bed transfer PT/OT: Bed Active Mina Mobility/Tr deficit: Mobility/T 2-20 [facility] 13:[facility]: PT pivot 00 541537-8 Bed transfer PT/OT: Bed Active 2019-0 Mina Mobility/Tr deficit: Mobility/T 2-20 luis Perry toilet/comm ransfer 13:45: PT ode 00 318231-5 Bed transfer PT/OT: Bed Active 20200 Mina Mobility/Tr deficit: Mobility/T 2-20 luis Perry shower/tub ransfer 13:45: PT 00 119501-1 Bed knowledge/s PT/OT: Bed Active 20200 Mina Mobility/Tr kill Mobility/T 2-20 [place] ansfer deficit: pt ransfer 13:45: PT 00 547375-7 Bed bed PT/OT: Bed Active Mina Mobility/Tr mobility Mobility/T 2-20 luis Perry deficit ransfer 13:45: PT 00 006960-6 Gait/Locomo gait PT/OT: Active Mina tion assistive Gait/Locom 2-20 [place], problems device otion 13:45: PT present 00 006683-6 Gait/Locomo knowledge/s PT/OT: Active Mina tion kill Gait/Locom 2-20 [place], problems deficit: pt otion 13:45: PT 00 180547-1 Gait/Locomo knowledge/s PT/OT: Active 20200 Mina tion kill Gait/Locom 2-20 [place], problems deficit: cg otion 13:45: PT 00 859772-1 Gait/Locomo gait PT/OT: Active Mina tion deficit Gait/Locom 2-20 [place], problems otion 13:45: PT 00 364220-2 Safety risk for Safety Active Mina hospitaliza 2-24 [place], tion 09:15: PT 00 104037-2 Allergies, Adverse Reactions, Alerts Allergy Allergy Status [...]
[2019-10-22 15:03] LABS: ABS Eosinophils 0.3 10^3/ul (0-0.6); ABS Lymphocytes 2.1 10^3/ul (1.0-4.8); ABS Monocytes 0.5 10^3/ul (0-0.8); ABS Neutrophils 2.9 10^3/ul (1.5-7.7); Eosinophil % 4.8 %; Hematocrit 38 % (35-47); Hemoglobin 12.5 g/dL (12.0-16.0); Lymphocyte % 36.3 %; Mean Corpuscular HGB Conc 33 g/dL (31-36); Mean Corpuscular Hemoglobin 28 pg (27-31); Mean Corpuscular Volume 85 fL (80-97); Mean Platelet Volume 9.5 fL (7.4-10.4); Nucleated Red Blood Cells % 0.1; Platelet Count 271 10^3/uL (150-450); Red Cell Distribution Width 15 % (10-15); White Blood Count 5.9 10^3/uL (3.5-10.8)
[2019-10-22 15:03] LABS: Urine Appearance Cloudy; Urine Bilirubin Negative (Negative); Urine Blood Negative (Negative); Urine Color Yellow; Urine Glucose 3+(>=500 mg/dL) (Negative); Urine Ketones Negative (Negative); Urine Nitrite Negative (Negative); Urine Protein Negative (Negative); Urine Specific Gravity 1.011 (1.010-1.030); Urine Urobilinogen Negative (Negative)
[2019-10-22 15:04] LABS: Urine Bacteria 1+ (Absent); Urine Red Blood Cell Trace(0-2/hpf) (Absent); Urine Squamous Epithelial Cell Present (Absent); Urine White Blood Cell 3+(>20/hpf) (Absent)
[2019-10-22] MEDS ORDERED: Lidocaine 1% MPF ** 5 ML VIAL IM ONE (15:12)
[2019-10-22] MEDS ORDERED: cefTRIAXone VIAL(*) 1,000 MG VIAL IM ONE (15:12)
[2019-10-22 15:21] LABS: Albumin 3.7 g/dL (3.2-5.2); Albumin/Globulin Ratio 1.2 (1-3); BUN/Creatinine Ratio 14.8 (8-20); Calcium 9.3 mg/dL (8.6-10.3); EGFR African American 58.8 (>60); EGFR Non-African American 48.6 (>60); Potassium 3.7 mmol/L (3.5-5.0); Total Bilirubin 0.5 mg/dL (0.2-1.0); Total Protein 6.7 g/dL (6.4-8.9)
[2019-10-22 15:58] VITALS: BP 181/69
== END 2019-10-22 15:56 | disposition home or self-care (01) ==
LOC: ED 14:01
DX: R55 Syncope and collapse (principal); R41.0 Disorientation, unspecified; N39.0 Urinary tract infection, site not specified; R53.1 Weakness; Z79.899 Other long term (current) drug therapy
CPT/HCPCS: 36415; 80053; 81003; 81015; 83735; 85025; 87077; 87086; 87186; 93005; 96372; 99283; J0696

== ENCOUNTER 2020-08-20 16:45 | Observation (INO) ==
[2020-08-20] MEDS ORDERED: NS 0.9% 1000 ml BAG 1,000 ML IV ONE ×2 (16:48→17:53)
[2020-08-20] MEDS ORDERED: Iodixanol (CONTRAST) 320 MG/ML 100 ML SDV IV ONE (17:02)
[2020-08-20 17:30] LABS: Activated Partial Thrombo Time 32.6 seconds (26.0-38.0); INR 0.99 (0.82-1.09)
[2020-08-20 17:33] LABS: ABS Lymphocytes 0.7 10^3/ul (1.0-4.8); ABS Monocytes 0.3 10^3/ul (0-0.8); ABS Neutrophils 5.7 10^3/ul (1.5-7.7); Hematocrit 41 % (35-47); Hemoglobin 13.8 g/dL (12.0-16.0); Lymphocyte % 10.3 %; Mean Corpuscular HGB Conc 34 g/dL (31-36); Mean Corpuscular Hemoglobin 30 pg (27-31); Mean Corpuscular Volume 89 fL (80-97); Mean Platelet Volume 9.5 fL (7.4-10.4); Nucleated Red Blood Cells % 0.1; Platelet Count 269 10^3/uL (150-450); Red Blood Count 4.59 10^6 /uL (3.70-4.87); Red Cell Distribution Width 16 % (10-15); White Blood Count 6.7 10^3/uL (3.5-10.8)
[2020-08-20 17:41] LABS: Troponin I 0.01 ng/mL (<0.03)
[2020-08-20 17:42] LABS: Albumin 4.2 g/dL (3.2-5.2); Albumin/Globulin Ratio 1.4 (1-3); BUN/Creatinine Ratio 15.3 (8-20); Calcium 9.5 mg/dL (8.6-10.3); EGFR African American 77.5 (>60); Globulin 3.1 g/dL (2-4); HDL Cholesterol 50.2 mg/dL; Potassium 3.4 mmol/L (3.5-5.0); Total Bilirubin 0.8 mg/dL (0.2-1.0); Total Protein 7.3 g/dL (6.4-8.9)
[2020-08-20] MEDS ORDERED: cefTRIAXone 1 gm/50 mL NS BAG 1 GM/50 ML BAG IVPB ONE (17:54)
[2020-08-20 19:10] LABS: Urine Appearance Cloudy; Urine Bacteria Absent (Absent); Urine Bilirubin Negative (Negative); Urine Blood 1+ (Negative); Urine Color Yellow; Urine Glucose Negative (Negative); Urine Ketones Negative (Negative); Urine Nitrite Negative (Negative); Urine Protein 1+(30 mg/dL) (Negative); Urine Red Blood Cell 3+(>10/hpf) (Absent); Urine Squamous Epithelial Cell Present (Absent); Urine Urobilinogen Negative (Negative); Urine White Blood Cell 3+(>20/hpf) (Absent)
[2020-08-20 19:11] LABS: Urine Specific Gravity > 1.030 (1.010-1.030)
[2020-08-21] MEDS: Multivitamins/Minerals TAB PO SCH (08:08)
[2020-08-21] MEDS ORDERED: cefTRIAXone 1 gm/50 mL NS BAG 1 GM/50 ML BAG IVPB SCH (18:00)
[2020-08-22 04:56] LABS: Hematocrit 37 % (35-47); Hemoglobin 12.6 g/dL (12.0-16.0); Mean Corpuscular HGB Conc 34 g/dL (31-36); Mean Corpuscular Hemoglobin 30 pg (27-31); Mean Corpuscular Volume 88 fL (80-97); Red Blood Count 4.18 10^6 /uL (3.70-4.87); Red Cell Distribution Width 16 % (10-15); White Blood Count 6.4 10^3/uL (3.5-10.8)
[2020-08-22 05:11] LABS: ABS Basophils 0.1 10^3/ul (0-0.2); ABS Eosinophils 0.2 10^3/ul (0-0.6); ABS Monocytes 0.7 10^3/ul (0-0.8); ABS Neutrophils 3.5 10^3/ul (1.5-7.7); Eosinophil % 3.1 %; Lymphocyte % 30.4 %; Nucleated Red Blood Cells % 0.2; Platelet Count Platelets clumped. 10^3/uL (150-450)
[2020-08-22 05:12] LABS: BUN/Creatinine Ratio 13.6 (8-20); EGFR African American 103.7 (>60); EGFR Non-African American 85.7 (>60); Potassium 3.4 mmol/L (3.5-5.0)
[2020-08-22] MEDS: Multivitamins/Minerals TAB PO SCH (08:06)
[2020-08-22] MEDS ORDERED: Potassium Chlor 20 meq TAB.ER PO ONE (09:42)
[2020-08-22 15:46] VITALS: BP 121/76
[2020-09-01] MEDS ORDERED: Cholecalciferol (VIT D3) 1,000 unit TAB PO SCH (09:00)
== END 2020-08-22 14:30 | disposition home or self-care (01) ==
LOC: MEDTELE 16:45 → ED 16:45 → MEDTELE 08-22 10:27
PROVIDERS: ADMIT Internal Medicine; ATTEND Internal Medicine

== ENCOUNTER 2020-08-22 16:14 | Inpatient (IN) ==
[2020-08-22] MEDS: Enoxaparin 40 MG/0.4 ML SYR SUBCUT SCH (20:13)
[2020-08-23] MEDS: Multivitamins/Minerals TAB PO SCH (09:15)
[2020-08-23] MEDS: Enoxaparin 40 MG/0.4 ML SYR SUBCUT SCH (21:36)
[2020-08-24] MEDS: Multivitamins/Minerals TAB PO SCH (10:19)
[2020-08-24] MEDS ORDERED: Magnesium Hydroxide LIQ 30 ML UDC PO PRN (12:26)
[2020-08-24] MEDS: Senna TAB 8.6 mg TAB PO SCH (22:02)
[2020-08-24] MEDS: Enoxaparin 40 MG/0.4 ML SYR SUBCUT SCH (22:02)
[2020-08-25] MEDS: Multivitamins/Minerals TAB PO SCH (09:29)
[2020-08-25] MEDS: Polyethylene Glycol 3350 17 GM PACKET PO SCH ×2 (09:30→09:38)
[2020-08-25] MEDS: Enoxaparin 40 MG/0.4 ML SYR SUBCUT SCH (21:48)
[2020-08-25] MEDS: Senna TAB 8.6 mg TAB PO SCH (21:48)
[2020-08-26] MEDS: Polyethylene Glycol 3350 17 GM PACKET PO SCH (09:31)
[2020-08-26] MEDS: Multivitamins/Minerals TAB PO SCH (09:32)
[2020-08-26] MEDS: Senna TAB 8.6 mg TAB PO SCH (21:25)
[2020-08-26] MEDS: Enoxaparin 40 MG/0.4 ML SYR SUBCUT SCH (21:27)
[2020-08-27] MEDS: Polyethylene Glycol 3350 17 GM PACKET PO SCH (07:49)
[2020-08-27] MEDS: Multivitamins/Minerals TAB PO SCH (07:51)
[2020-08-27 11:12] VITALS: BP 130/81
== END 2020-08-27 13:07 | DRG 690 ==
LOC: MEDTELE 17:17
PROVIDERS: ADMIT Internal Medicine; ATTEND Internal Medicine

== ENCOUNTER 2022-04-13 19:20 | Inpatient (IN) ==
[2022-04-13] MEDS ORDERED: Morphine 4 MG/ML VIAL (1 ml) IV ONE (19:37)
[2022-04-13] MEDS ORDERED: Scopolamine 1 mg/72hr PATCH TRANSDERM SCH (20:00)
[2022-04-13] MEDS ORDERED: Ondansetron ODT 4 mg TAB 4 MG TAB SL PRN (20:49)
[2022-04-13] MEDS ORDERED: LORazepam 2 mg VIAL 1 ml IV PUSH PRN (20:49)
[2022-04-13] MEDS ORDERED: Atropine 1% (ORAL/SL) 15 ML BTL SL PRN (20:49)
[2022-04-13] MEDS ORDERED: Lorazepam PYXIS KEY PRN (20:54)
[2022-04-13] MEDS: Morphine 2 MG/ML SYRINGE IV PRN ×2 (20:57→22:37)
[2022-04-13] MEDS ORDERED: Morphine 2 MG/ML SYRINGE IV ONE (22:50)
[2022-04-14 00:45] VITALS: BP 88/63
[2022-04-14] MEDS: Morphine 2 MG/ML SYRINGE IV PRN ×3 (01:00→03:13)
== END 2022-04-14 04:49 | disposition expired | DRG 204 ==
LOC: ED 19:20 → EDHOLD 21:02 → MED 04-14 00:38
PROVIDERS: ADMIT Student in an Organized Health Care Education/Training Program; ATTEND Student in an Organized Health Care Education/Training Program